=== PATIENT | female | born 1940 | race Caucasian/White ===

== ENCOUNTER 2022-12-29 10:14 | Outpatient (CLI) | payer MEDICARE, BC, SELFPAY | END 2022-12-29 10:15 | disposition home or self-care (01) | LOC: NFLDREF 12-30 07:27 | PROVIDERS: PCP Emergency Medicine; Referring Provider Emergency Medicine; Visit Provider Emergency Medicine | DX: Z00.00 Encounter for general adult medical examination without abnormal findings (principal); E03.9 Hypothyroidism, unspecified; E78.5 Hyperlipidemia, unspecified; E87.6 Hypokalemia; R79.89 Other specified abnormal findings of blood chemistry; R73.03 Prediabetes; Z79.899 Other long term (current) drug therapy; F32.A Depression, unspecified; M48.00 Spinal stenosis, site unspecified; R60.0 Localized edema | CPT/HCPCS: 80053; 80061; 84443 ==

== ENCOUNTER 2023-07-06 11:41 | Outpatient (CLI) | payer MEDICARE, BC, SELFPAY | END 2023-07-06 11:42 | disposition home or self-care (01) | PROVIDERS: PCP Emergency Medicine; Visit Provider Emergency Medicine | DX: N17.9 Acute kidney failure, unspecified (principal); D64.9 Anemia, unspecified; E03.9 Hypothyroidism, unspecified | CPT/HCPCS: 80048; 82728; 84443 ==

== ENCOUNTER 2024-04-04 13:32 | Outpatient (CLI) | payer MEDICARE, BC, SELFPAY | END 2024-04-04 13:33 | disposition home or self-care (01) | PROVIDERS: PCP Emergency Medicine; Visit Provider Emergency Medicine | DX: I10 Essential (primary) hypertension (principal); E78.5 Hyperlipidemia, unspecified; E03.9 Hypothyroidism, unspecified; R73.03 Prediabetes; D50.9 Iron deficiency anemia, unspecified | CPT/HCPCS: 80053; 80061; 82728; 84443 ==

== ENCOUNTER 2024-08-15 09:28 | Inpatient (IN) | payer MEDICARE, BC, SELFPAY ==
[2024-08-15] VITALS (21 sets, daily range): BP systolic 114–169; BP diastolic 59–95; PULSE 68–87; RESP 18–22; TEMP 36.2–36.8; O2SAT 88–100; BMI 56.5; BMI 43.7
--- NOTE | 2024-08-15 09:37 | ED_ITS ---
HPI - General Adult General Time Seen by Provider: 09:37 Date Seen: 08/15/24 Chief complaint: Weakness Stated complaint: UTI Time Seen by Provider: 08/15/24 09:35 Source: EMS Mode of arrival: EMS Limitations: no limitations History of Present Illness HPI narrative: Debora is a 84-year-old female with recurrent UTIs, sepsis in the past, obstructive sleep apnea, chronic iron deficiency anemia, chronic right buttock pressure ulcer, heart failure with preserved ejection fraction, limited mobility, obesity, hypertension, chronic pain, anxiety and depression, atrial fibrillation on chronic anticoagulation presents emerged department via EMS with UTI. Patient states she sees a provider at the [facility], they did obtain a urine about 1 week ago, she was notified that she had a urinary tract infection. Patient is currently not on any antibiotics. Patient also states she has had this chronic right buttock ulcer, she gets intermittent pain in the area from time to time, she feels it is progressively got worse. She denies any new fevers or chills, she has had lower extremity edema which has been stable, she gets pain in the hip both of her heels. She did feet slid out of her wheelchair about 1 week ago, she denied any head injury that time. Patient has not had a cough or chest pain however she has been progressively worsened shortness of breath over the last year. No recent falls. Patient lives with her , she states does not help out very much, she does not have any home health care. Related Data Home Medications ?Medication ?Instructions ?Recorded ?Confirmed acetaminophen 500 mg capsule 1,000 mg PO QID PRN 09/27/22 07/04/24 cholecalciferol (vitamin D3) 125 125 mcg PO QDAY 09/27/22 07/04/24 mcg (5,000 unit) tablet fluticasone furoate 200 1 inh inhalation DAILY 04/16/24 07/04/24 mcg/actuation blister powder for inhalation (Arnuity Ellipta) Previous Rx's ?Medication ?Instructions ?Recorded warfarin 6 mg tablet 6 mg PO 4XW #90 tabs 05/16/23 metoprolol succinate 100 mg 100 mg PO QDAY #90 tabs 04/16/24 tablet,extended release 24 hr simvastatin 40 mg tablet 40 mg PO QPM #90 tabs 04/16/24 levothyroxine 150 mcg tablet 150 mcg PO DAILY #90 tabs 04/24/24 budesonide 0.5 mg/2 mL suspension 0.5 mg (2 mL) inhalation BID #360 04/25/24 for nebulization (Pulmicort) mL nebulizer accessories #1 ea 05/07/24 nebulizers #1 ea 05/07/24 warfarin 5 mg tablet 5 mg PO QWEEK #30 tabs 07/01/24 albuterol sulfate 90 mcg/actuation 2 puff inhalation Q4-6H PRN 07/04/24 aerosol inhaler (Ventolin HFA) shortness of breath or wheezing #8.5 grams bupropion HCl 150 mg 24 hr tablet, 150 mg PO QAM #90 tabs 07/04/24 extended release furosemide 40 mg tablet 40 mg PO BID #180 tabs 07/04/24 gabapentin 600 mg tablet 1,200 mg (2 x 600 mg) PO TID #540 07/04/24 tabs warfarin 7.5 mg tablet 7.5 mg PO QDAY #90 tabs 07/17/24 Allergies Allergy/AdvReac Type Severity Reaction Status Date / Time penicillamine Allergy Unknown Verified 07/04/24 13:14 Review of Systems Status of ROS: Reports: 10 or more systems reviewed and unremarkable except as noted in History and below [facility] Medical History (Updated 08/15/24 @ 15:04 by Neil Fu MD) Decubital ulcer ?L89.90 - Pressure ulcer of unspecified site, unspecified stage (ICD-10) Restrictive lung disease ?J98.4 - Other disorders of lung (ICD-10) Cough variant asthma ?J45.991 - Cough variant asthma (ICD-10) Noncompliance with medications ?Z91.148 - Patient's other noncompliance with medication regimen for other reason (ICD-10) Chronic cough ?R05.3 - Chronic cough (ICD-10) Atrial fibrillation with RVR ?I48.91 - Unspecified atrial fibrillation (ICD-10) UTI (urinary tract infection) ?N39.0 - Urinary tract infection, site not specified (ICD-10) Macular degeneration ?H35.30 - Unspecified macular degeneration (ICD-10) Iron deficiency anemia ?D50.9 - Iron deficiency anemia, unspecified (ICD-10) MIN (obstructive sleep apnea) ?G47.33 - Obstructive sleep apnea (adult) (pediatric) (ICD-10) Anemia ?D64.9 - Anemia, unspecified (ICD-10) History of sepsis ?Z86.19 - Personal history of other infectious and parasitic diseases (ICD- 10) Acute kidney injury ?N17.9 - Acute kidney failure, unspecified (ICD-10) Acute hypoxic respiratory failure ?J96.01 - Acute respiratory failure with hypoxia (ICD-10) Sepsis ?A41.9 - Sepsis, unspecified organism (ICD-10) (HFpEF) heart failure with preserved ejection fraction ?I50.30 - Unspecified diastolic (congestive) heart failure (ICD-10) Limited mobility ?Z74.09 - Other reduced mobility (ICD-10) Bed sore, stage 1 ?L89.91 - Pressure ulcer of unspecified site, stage 1 (ICD-10) Cough ?R05.9 - Cough, unspecified (ICD-10) PAC (premature atrial contraction) ?I49.1 - Atrial premature depolarization (ICD-10) Pyelonephritis ?N12 - Tubulo-interstitial nephritis, not specified as acute or chronic (ICD- 10) Seasonal allergies ?J30.2 - Other seasonal allergic rhinitis (ICD-10) Irregular heart beat ?I49.9 - Cardiac arrhythmia, unspecified (ICD-10) History of deep venous thrombosis ?Z86.718 - Personal history of other venous thrombosis and embolism (ICD-10) History of bone density study (06/24/11) ?Z92.89 - Personal history of other medical treatment (ICD-10) Fracture of right femur ?S72.91XA - Unspecified fracture of right femur, initial encounter for closed fracture (ICD-10) Recurrent pulmonary embolism ?I26.99 - Other pulmonary embolism without acute cor pulmonale (ICD-10) Chronic anticoagulation ?Z79.01 - vermin exterminator (current) use of anticoagulants (ICD-10) Central stenosis of spinal canal ?M48.00 - Spinal stenosis, site unspecified (ICD-10) Leg edema ?R60.0 - Localized edema (ICD-10) Depression ?F32.A - Depression, unspecified (ICD-10) Surgical History (Updated 07/04/24 @ 13:59 by Lona Bernard MD) History 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 - Skin transplant status (ICD-10) History of total abdominal hysterectomy ?Z90.710 - Acquired absence of both cervix and uterus (ICD-10) History of left shoulder replacement ?Z96.612 - Presence of left artificial shoulder joint (ICD-10) History of fusion of lumbar spine ?Z98.1 - Arthrodesis status (ICD-10) History of colonoscopy (06/24/11) ?Z98.890 - Other specified postprocedural states (ICD-10) History of appendectomy (04/08/11) ?Z90.49 - Acquired absence of other specified parts of digestive tract (ICD- 10) Social History (Updated 07/04/24 @ 14:00 by Lona Bernard MD) Narrative: lives with one daughter Exam Narrative: Exam Narrative: General: NAD, laying comfortably. HEENT: Oropharynx clear and moist, extraocular muscles intact, pupils equal round reactive to light. Neck: Supple Lungs: Diminished breath sounds no wheezing or crackles Heart: Irregular irregular Abdomen: Morbid obese, soft, nontender to palpation Muscle skeletal: Chronic lower lymph edema, mild anterior lower erythema. Right buttock and sacral area chronic pressure ulcer, no induration or fluctuance, no surrounding erythema, no drainage Neuro: Alert awake and oriented x3, GCS 15 Const: Vital Signs, click to edit/add: Vital Signs - 24 hr 08/15/24 09:59 08/15/24 10:00 08/15/24 10:06 Temperature 97.2 F L Pulse Rate 79 81 Pulse Rate [Pulse Oximeter] 87 Respiratory Rate 22 Blood Pressure 157/95 H Blood Pressure [Ri ght Forearm] 157/95 H Pulse Oximetry 95 89 88 Oxygen Delivery Me thod Room Air Oxygen Flow Rate 08/15/24 10:15 08/15/24 10:30 08/15/24 11:06 Temperature Pulse Rate 87 80 71 Pulse Rate [Pulse Oximeter] Respiratory Rate Blood Pressure Blood Pressure [Ri ght Forearm] Pulse Oximetry 95 96 91 Oxygen Delivery Me thod Oxygen Flow Rate 08/15/24 11:15 08/15/24 11:30 08/15/24 11:48 Temperature Pulse Rate 72 70 74 Pulse Rate [Pulse Oximeter] Respiratory Rate Blood Pressure Blood Pressure [Ri ght Forearm] Pulse Oximetry 93 93 94 Oxygen Delivery Me thod Oxygen Flow Rate 08/15/24 12:34 08/15/24 12:45 08/15/24 13:00 Temperature Pulse Rate 75 70 68 Pulse Rate [Pulse Oximeter] Respiratory Rate Blood Pressure Blood Pressure [Ri ght Forearm] Pulse Oximetry 93 94 94 Oxygen Delivery Me thod Oxygen Flow Rate 08/15/24 13:15 08/15/24 14:15 08/15/24 14:27 Temperature Pulse Rate 76 Pulse Rate [Pulse Oximeter] Respiratory Rate 18 Blood Pressure 128/59 L Blood Pressure [Ri ght Forearm] 138/80 Pulse Oximetry 95 Oxygen Delivery Me thod Oxygen Flow Rate 08/15/24 14:39 08/15/24 15:05 Temperature Pulse Rate 75 Pulse Rate [Pulse Oximeter] Respiratory Rate 20 Blood Pressure Blood Pressure [Ri ght Forearm] Pulse Oximetry 92 93 Oxygen Delivery Me thod Nasal Cannula OxyMask Oxygen Flow Rate 2 3 Course Course ED Course: 9;45 PM: aidet performed. Vitals show 88% O2 sats on room air, will give her supplemental oxygen 2 L, vitals are otherwise stable, workup will include urinalysis and urine culture, CBC, INR, CMP, blood cultures, NT proBNP, EKG, XR chest PA and lateral. Plan to rule out worsening heart failure versus worsening urinary tract infection. Patient has other chronic multiple comorbidities that seems stable. Patient has chronic sacral wound which also looks stable. Will await for lab results to see further imaging will be obtained. Reevaluation(s) Time of Reevaluation #1: 12:20 Reevaluation #1: IMPRESSION: Moderate pulmonary edema. No pleural effusion. Cardiomegaly. Imaging showed milder and pulmonary edema, EKG showed a normal sinus rhythm, bpm 70, low-voltage QRS, no acute ST changes, INR 3.31, NT proBNP 1300, patient was given 20 mg IV Lasix. Urinalysis showed 2+ blood, urine nitrite positive, 2+ leukocyte esterase, urine rbc's 2-5, urine white blood cells 5-10, moderate bacteria, previous urine culture showed Klebsiella and Pseudomonas, sensitive to cefepime, patient received 2 g IV cefepime. 1000 mg oral tab Tylenol for pain. CBC showed no leukocytosis, for anemia, INR 3.31, normal lactate, blood cultures pending, comprehensive metabolic panel showed normal renal function and electrolytes. Time of Reevaluation #2: 15:14 Reevaluation #2: Spoke with hospitalist Dr. Kelsey VILLAGOMEZ, he sepsis care of the patient to a observation bed, time to treat for acute on chronic heart failure with pulmonary edema and urinary tract infection. Vital Signs Vital signs: Initial Vital Signs Pulse Rate 79 08/15/24 09:59 Blood Pressure 157/95 H 08/15/24 09:59 Blood Pressure Mean 115 H 08/15/24 09:59 Pulse Oximetry 95 08/15/24 09:59 Vital Signs Pulse Rate 79 08/15/24 09:59 Blood Pressure 157/95 H 08/15/24 09:59 Pulse Oximetry 95 08/15/24 09:59 Temperature 97.2 F L 08/15/24 10:06 Pulse Rate 75 08/15/24 14:39 Respiratory Rate 20 08/15/24 14:39 Blood Pressure 128/59 L 08/15/24 14:27 Pulse Oximetry 93 08/15/24 15:05 Oxygen Delivery Method OxyMask 08/15/24 15:05 Oxygen Flow Rate 3 08/15/24 15:05 Medications Administered Medications: Discontinued Medications Generic Name Dose Route Start Last Admin Trade Name Cristina PRN Reason Stop Dose Admin Acetaminophen 1,000 mg 08/15/24 14:02 08/15/24 14:05 Acetaminophen 500 Mg Tablet PO 08/15/24 14:03 1,000 mg ONCE ONE Administration Furosemide 20 mg 08/15/24 12:33 08/15/24 13:08 Furosemide 10 Mg/Ml Inj IVP 08/15/24 12:34 20 mg ONCE ONE Administration Cefepime HCl 2 gm/ Sodium 100 mls @ 200 mls/hr 08/15/24 14:11 08/15/24 14:27 Chloride IVPB 08/15/24 14:12 200 mls/hr ONCE ONE Administration Medical Decision Making Lab Data Labs: Lab Results 08/15/24 08/15/24 Range/Units 10:27 11:05 WBC 7.76 (4.50-11.00) K/uL RBC 4.75 (4.00-5.20) m/uL Hgb 12.9 (12.0-16.0) gm/dL Hct 42.8 (33.0-51.0) % MCV 90 (80-100) fL MCH 27 (26-34) pg MCHC 30 L (32-36) gm/dL RDW Coeff of Dorothy 16.2 H (11.5-15.5) % Plt Count 210 (140-440) K/uL Neut % (Auto) 70.2 (42.0-72.0) % Lymph % (Auto) 19.5 L (20-44) % [place] % (Auto) 7.1 (0.0-11.0) % Eos % (Auto) 2.7 (0.0-7.0) % Baso % (Auto) 0.4 (0.0-3.0) % Neut # (Auto) 5.45 (1.7-7.0) K/uL Lymph # (Auto) 1.50 (0.90-2.90) K/uL [place] # (Auto) 0.60 (0.00-0.90) K/UL Eos # (Auto) 0.21 (0.00-0.50) K/uL Baso # (Auto) 0.03 (0.00-0.30) K/uL Abs Immat Gran (auto) 0.01 (0.00-0.30) K/uL Imm/Tot Granulo (auto) 0.1 % INR 3.31 H (0.91-1.10) Sodium 143 (135-149) mmol/L Potassium 4.0 (3.6-5.1) mmol/L Chloride 104 (96-114) mmol/L Carbon Dioxide 33 H (20-32) mmol/L Anion Gap 6 L (7-15) mEq/L BUN 27 (7-30) mg/dL Creatinine 0.9 (0.5-1.5) mg/dL Estimated Creat Clear 39.90 Estimated GFR 63 ml/min Glucose 99 (60-115) mg/dL Calcium 9.1 (8.4-10.6) mg/dL Total Bilirubin 0.6 (0.1-1.5) mg/dL AST 21 (12-35) U/L ALT 12 (4-35) U/L Alkaline Phosphatase 108 (40-150) U/L NT-Pro-B Natriuret Pep 1300 pg/mL Total Protein 7.2 (6.0-8.3) g/dL Albumin 3.9 (3.3-5.0) g/dL Urine Color Yellow (Yellow) Urine Appearance Clear (Clear) Urine pH 7.0 (5.0-8.5) Ur Specific Gordon 1.010 (1.000-1.030) Urine Protein Negative (Negative) Urine Glucose (UA) Negative (Negative) Urine Ketones Negative (Negative) Urine Blood 2+ A (Negative) Urine Nitrite Positive A (Negative) Urine Bilirubin Negative (Negative) Urine Urobilinogen 0.2 (0.2-1.0) Ur Leukocyte Esterase 2+ A (Negative) Urine RBC 2-5 A (0-2) Urine WBC 5-10 A (0-5) Ur Squamous Epith Cells None (None-Few) Amorphous Sediment Few A (None) Urine Bacteria Moderate A (None) Discharge Plan Discharge Clinical Impression: Pulmonary edema, Urinary tract infection Patient Disposition: Admitted As Observation
--- NOTE | 2024-08-15 09:56 | CRLHL7_ITS ---
For Patients: As a result of the Century Cures Act, medical imaging exams and procedure reports are released immediately into your electronic medical record. You may view this report before your referring provider. If you have questions, please contact your health care provider. INDICATION: Shortness of breath, question worsening heart failure COMPARISON: 10/19/2020 TECHNIQUE: PA and lateral 2 view chest. FINDINGS: Elevated anterior right diaphragm. Lung volumes are good. No focal consolidation. Moderate pulmonary edema. No pleural effusion. No pneumothorax. No pneumomediastinum. Cardiomegaly. Atherosclerosis. Bones: Bilateral shoulder arthroplasties. Lower cervical ACDF. IMPRESSION: Moderate pulmonary edema. No pleural effusion. Cardiomegaly. Dictated by Karen Spicer MD @ 08/15/2024 11:51:01 AM (Electronically Signed)
[2024-08-15 10:52] LABS: Chloride* 104 mmol/L (96-114)
[2024-08-15 10:53] LABS: Albumin* 3.9 g/dL (3.3-5.0); Sodium* 143 mmol/L (135-149)
[2024-08-15 10:55] LABS: Blood Urea Nitrogen* 27 mg/dL (7-30); Creatinine* 0.9 mg/dL (0.5-1.5); Estimated Glomerular Filt Rate 63 ml/min
[2024-08-15 10:56] LABS: Alanine Aminotransferase* 12 U/L (4-35); Alkaline Phosphatase* 108 U/L (40-150); Anion Gap 6 mEq/L (7-15); Aspartate Amino Transferase* 21 U/L (12-35); Bilirubin Total* 0.6 mg/dL (0.1-1.5); Calcium* 9.1 mg/dL (8.4-10.6); Carbon Dioxide* 33 mmol/L (20-32); Glucose* 99 mg/dL (60-115); INR 3.31 (0.91-1.10); Prothrombin Time 34.9 Seconds; Total Protein* 7.2 g/dL (6.0-8.3)
[2024-08-15 11:00] LABS: Basophils Absolute Auto 0.03 K/uL (0.00-0.30); Basophils Percent Auto 0.4 % (0.0-3.0); Eosinophils Absolute Auto 0.21 K/uL (0.00-0.50); Eosinophils Percent Auto 2.7 % (0.0-7.0); Hematocrit 42.8 % (33.0-51.0); Hemoglobin* 12.9 gm/dL (12.0-16.0); Immature Granulocytes Abs Auto 0.01 K/uL (0.00-0.30); Immature Granulocytes Pct Auto 0.1 %; Lymphocytes Percent Auto 19.5 % (20-44); Mean Corpuscular HGB Conc 30 gm/dL (32-36); Mean Corpuscular Hemoglobin 27 pg (26-34); Mean Corpuscular Volume 90 fL (80-100); Monocytes Percent Auto 7.1 % (0.0-11.0); Neutrophils Absolute Auto 5.45 K/uL (1.7-7.0); Neutrophils Percent Auto 70.2 % (42.0-72.0); Platelet Count* 210 K/uL (140-440); RDW Coefficient of Variation % 16.2 % (11.5-15.5); Red Blood Count 4.75 m/uL (4.00-5.20); Slide Review Reflex No; White Blood Count* 7.76 K/uL (4.50-11.00)
[2024-08-15 11:13] LABS: NT Pro B Type NatriureticPept* 1300 pg/mL
[2024-08-15 11:21] LABS: Appearance Urine Clear (Clear); Bilirubin Urine Negative (Negative); Blood Urine 2+ (Negative); Color Urine Yellow (Yellow); Glucose Urine Negative (Negative); Ketones Urine Negative (Negative); Leukocyte Esterase Urine 2+ (Negative); Nitrite Urine Positive (Negative); Protein Urine Negative (Negative); Urobilinogen Urine 0.2 (0.2-1.0)
[2024-08-15 11:35] LABS: Amorphous Sediment Urine Few; Bacteria Urine Moderate
[2024-08-15] MEDS: FUROSEMIDE 10 MG/ML inj 20 MG IVP (13:08)
[2024-08-15] MEDS: ACETAMINOPHEN 500 MG TABLET 1000 MG PO ×2 (14:05→18:46)
[2024-08-15] MEDS: CEFEPIME HCL 2 GM in 0.9 % SODIUM CHLORIDE Mini-bag 100 ML IVPB (14:27)
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
--- OUTSIDE RECORDS SUMMARY | 2024-08-15 17:29 | XMS_ITS | Encounter Summary ---
Author Organization [facility] Address [address] [place] [address] Care Team Providers Care Bruise Trimmer Name Role Phone Provider, Not On File Primary Care Provider Unav ailable Encounter Details Date Type Department Care Team (Late st Contact Info) Description 11/23/2020 Lab Requisition [facility] [address] [place] [address] Katie Iqbal MD [address] [place], [place] [phone] Urinary tract infection, site not specified Social History Tobacco Use Types Packs/Day Years Used Date Smoking Tobacco: Never Smokeless Tobacco: Never Comments:Quit smoking: Comments Unknown Sex and Gender Information Value Date Recorded Sex Assigned at Not on file Legal Sex Female 4:25 AM CDT Gender Identity Not on file Sexual Orientation Not on file documented as of this encounter Plan of Treatment Not on file documented as of this encounter Procedures Procedure Name Priority Date/Time Associated Diagnosis Comments URINE CULTURE Routine 11/23/2020 3:30 PM CDT Urinary tract infection, site not specified UA WITH MICROSCOPIC Routine 11/23/2020 3 :30 PM CDT Urinary tract infection, site not specified documented in this encounter Results * (ABNORMAL) Urine Culture (11/23/2020 3:30 PM CDT) Urine Culture Growth(A) 11/25/2020 8:19 AM [facility] Urine Culture >100,000 CFU/mL Klebsiella oxytoca/Raoultella ornithinolytica 11/25/2020 8:19 AM [facility] Urine ROCA CATHETER LONGTERM USE / Unknown Non-blood Collection / Unknown 11/23/2020 3:30 PM CDT 11/23/2020 7:55 PM T Narrative Organism Antibiotic Method Susceptibility Klebsiella oxytoca/Raoultella ornithinolytica Ampicillin/Sulbactam 16 mcg/mL: Intermediate Klebsiella oxytoca/Raoultella ornithinolytica Piperacillin/Tazobactam 4 mcg/mL: Susceptible Klebsiella oxytoca/Raoultella ornithinolytica Cefazolin >16 mcg/mL: Resistant Klebsiella oxytoca/Raoultella ornithinolytica Ceftriaxone <=1 mcg/mL: Susceptible Klebsiella oxytoca/Raoultella ornithinolytica Cefepime <=1 mcg/mL: Susceptible Klebsiella oxytoca/Raoultella ornithinolytica Ciprofloxacin <=0.25 mcg/mL: Susceptible Klebsiella oxytoca/Raoultella ornithinolytica Levofloxacin <=0.5 mcg/mL: Susceptible Klebsiella oxytoca/Raoultella ornithinolytica Ertapenem <=0.25 mcg/mL: Susceptible Klebsiella oxytoca/Raoultella ornithinolytica Meropenem <=0.5 mcg/mL: Susceptible Klebsiella oxytoca/Raoultella ornithinolytica Tobramycin <=2 mcg/mL: Susceptible Klebsiella oxytoca/Raoultella ornithinolytica Trimethoprim/Sulfamethoxaz ole <=0.5 mcg/mL: Susceptible Klebsiella oxytoca/Raoultella ornithinolytica Nitrofurantoin 64 mcg/mL: Intermediate Klebsiella oxytoca/Raoultella ornithinolytica Cefoxitin <=4 mcg/mL: Susceptible Klebsiella oxytoca/Raoultella ornithinolytica Gentamicin <=2 mcg/mL: Susceptible Klebsiella oxytoca/Raoultella ornithinolytica Cefotetan Klebsiella oxytoca/Raoultella ornithinolytica Cefuroxime <=4 mcg/mL: Susceptible us Katie Iqbal MD LAB_1 Final Result [address] [address], [facility] [phone] * (ABNORMAL) UA with Microscopic (11/23/2020 3:30 PM CDT) Urine Color Yellow Straw-Yello w 11/23/2020 8:36 PM CDT [facility] Urine Clarity Clear Clear 11/23/2020 8:36 PM CDT [facility] Specific Grant, Urine 1.010 1.005 - 1.030 11/23/2020 8:36 PM CDT [facility] PH Urine 6.0 5.0 - 8.0 11/23/2020 8:36 PM CDT [facility] Protein Negative Negative 11/23/2020 8:36 PM CDT [facility] Glucose Negative Negative 11/23/2020 8:36 PM CDT [facility] Ketones Negative Negative 11/23/2020 8:36 PM CDT [facility] Urobilinogen <2.0 <2.0 11/23/2020 8:36 PM CDT [facility] Bilirubin Negative Negative 11/23/2020 8:36 PM CDT [facility] Blood, Urine (mg/dL) Small(A) Neg/Trace 11/23/2020 8:36 PM CDT [facility] Nitrite Urine Negative Negative 11/23/2020 8:36 PM CDT [facility] Leukocyte Esterase Large(A) Negative 11/23/2020 8:36 PM CDT [facility] Red Blood Cells 12(H) 0 - 3 /HPF 8:36 PM CDT [facility] White Blood Cells 47(H) 0 - 5 /HPF 11/23/2020 8:36 PM CDT [facility] Bacteria Moderate(A) None Seen /HPF 11/23/2020 8:36 PM CDT [facility] Hyaline Casts 6(H) <=2 /LPF 11/23/2020 8:36 PM CDT [facility] Source Roca catheter (Indwelling ) 11/23/2020 8:36 PM CDT [facility] Urine ROCA CATHETER [employer] USE / Unknown Non-blood Collection / Unknown 11/23/2020 3:30 PM CDT 11/23/2020 7:55 PM CDT Narrative [facility] - 11/23/2020 8:36 PM CDT Ascorbic acid detected in this urine sample, which may interfere with Glucose, Blood and Nitrite measurements. us Katie Iqbal MD LAB_1 Final Result [facility] [address] [place] [address], [facility] documented in this encounter Visit Diagnoses Diagnosis Urinary tract infection, site not specified documented in this encounter Additional Health Concerns Health Status Noted Date No Change 01/30/2008 documented as of this encounter Care Teams Bruise Trimmer Relationship Specialty Start Date End Date Provider, Not On File [address] [place] [address] PCP - General 03/03/17 documented as of this encounter
--- OUTSIDE RECORDS SUMMARY | 2024-08-15 17:29 | XMS_ITS | Data Portability ---
Author Organization [place] [facility] Address [address] [place] [address] Assessment No assessment recorded. Plan of Treatment Reminders Order Date Submit Date Provider Last Modified By Organization Details Last Modified Time Details Appointments None record ed. Lab None record ed. Referral None record ed. Procedures None record ed. Surgeries None record ed. Imaging None record ed. Medication Orders None record ed. Patient TargetsNo targets recorded. Patient Instructions Encounter Date Encounter Id Patient Instructions Last Modified By Organization Details Last Modified Time 01/14/2020 [id number] hx of mixed incontinence--uri ne and stool she is a weak historian with 3+ yrs of urethral catheter. has what sounds like catheter expelling monthly at times along with some UTIs on occasion. seems like colorectal did not want her to have colostomy in past she is unable to move and help for exam and further evaluation today --to be seen with ayden at [facility] for exam. we discussed that if there is urethral erosion, then that is possible cause for problem. care home urethral catheter is not a good plan, but obese and SPT would be hard. could consider IR to place but again difficult. could consider anticholinergic/m yrbetriq to help with explusion as well no clear symptomactic uti sx, but wanted urine checked as more cloudy and smells. we discussed she will always have bacteria in urine with catheter. will call with result. needs exam with ayden [email or web address] Not available 01/15/2020 09:31:56 Reason for Referral None Reported. Results Created Date Observation Date Name Description Value Unit Range Abnormal Flag Note LastModifiedBy Organization Detail LastModifiedTime Result Notes None recorded. Problems Name Problem SNOMED Code Status Onset Date Resolution Date Notes Provider Name and Address Organization Details Recorded Time Depressiv e disorder 73400238 Active 2019 Dorys Maral null, [facility] 0 10:40:29 Hypokalem ia 03838646 Active 2019 Dorys Maral null, [facility] 0 10:40:39 Hyperlipi demia 31357885 Active 2019 Dorys Maral null, [facility] 0 10:40:47 Hypothyro idism 01458318 Active 2019 Dorys Maral null, [facility] 0 10:41:00 Vitamin D deficienc y 15529326 Active 2019 Dorys Maral null, [facility] 0 10:41:13 Fatigue 11780258 Active 2019 Dorys Maral null, [facility] 0 10:41:21 Benign prostatic hyperplas ia 251764472 Completed 201901/14/2020 Dorys Maral null, [facility] 0 14:00:59 Acute nontrauma tic kidney injury 800301108096 103 Active 2019 Dorys Maral null, [facility] 0 10:43:24 Radiculit is 14274326 Active 2019 Dorys Maral null, [facility] 0 10:43:34 Sepsis 37619285 Active 2019 Dorys Maral null, [facility] 0 10:43:43 Anxiety 77433409 Active 2019 Dorys Maral null, [facility] 0 10:43:51 Chronic pain 94537264 Active 2019 Dorys Maral null, [facility] 0 10:44:01 Deep venous thrombosi s 087642719 Active 2019 Dorys Maral null, [facility] 0 10:44:16 Hypertens gary disorder 01116027 Active 2019 Dorys Maral null, [facility] 0 10:44:24 Pulmonary embolism 17215411 Active 2019 Dorys willis [facility] 0 10:44:34 Fever 681355808 Active 2019 Dorys willis [facility] 0 10:44:45 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 Procedures Surgical History Date Name Laterality Status Provider Name and Address Organization Details Recorded Time total shoulder replacement completed Dorysdexter Alicia [facility] 01/14/2020 10:47:01 Appendectomy completed Dorys Alicia [facility] 01/14/2020 10:47:18 abdominal hysterectomy completed Dorys Alicia [facility] 01/14/2020 10:47:45 total [facility] 01/14/2020 10:48:10 Imaging Results None recorded. Procedure Notes None recorded. Medical Equipment None Reported. Allergies No known drug allergies Medications Name Sig Start Date Stop Date Status Note LastModified by Organization Details LastModified Time simvastatin 40 mg tablet Take 1 tablet every day by oral route. active Not Available Not Available No t Available warfarin 5 mg tablet Take 1 tablet every day by oral route. active Not Available Not Available No t Available sertraline active Not Available Not Av ailable Not Available acetaminophen active Not Available Not Available Not Available levothyroxine active Not Available Not Available Not Available senna active Not Available Not Availa ble Not Available lorazepam active Not Available Not Tiana ilable Not Available furosemide active Not Available Not Av ailable Not Available Vitamin D active Not Available Not Tiana ilable Not Available dibucaine active Not Available Not Tiana ilable Not Available gabapentin active Not Available Not Av ailable Not Available Wellbutrin SR active Not Available Not Available Not Available Miralax active Not Available Not Avail able Not Available metoprolol succ 25 mg-hydrochlorot hiazide 12.5 mg tablet,ext.rel 24 hr Take 1 tablet every day by oral route. active Not Available Not Available No t Available potassium 408 mg-stanley 100 mg-magnes 120 mg-bhargavi 2 mg oral powder pack Take by oral route. active Not Available Not Available No t Available Vitals Date Recorded Body height Provider Name an d Address Organization Details Last Updated DateTime 01/14/2020 170.18 cm Dorys Alicia [facility] 01/14/2020 11:47:05 Social History Question Answer Notes LastModified by Organizat ion Details LastModified Time Tobacco Smoking Status Never Smoker Dorys Alicia null, [facility] 01/14/2020 11:47:34 How Much Tobacco Do You Smoke? No [email or web address] Information not available 01/14/2020 Sex: Unknown Functional Status None recorded. Mental Status None recorded. Family History Nothing Reported. Medical History No medical history recorded. Gynecological HistoryNo gynecological history recorded. Obstetrics History GPAL:G 0 P 0 0 0 0 Past Encounters Encounter ID Performer Location Encounter Start Date Encounter Closed Date Diagnosis/Indication Diagnosis SNOMED-CT Code Diagnosis ICD10 Code Diagnosis Note [id number] Maryann Pereyra MD [facility] [address] [place] [address] 01/14/2020 11:41:01 01/24/2020 12:19:38 Urinary incontinence 320677045 R32 Incontinence of feces 72 928444 R15.9 Recurrent urinary tract infection 287851831 N39.0 Health Concerns Section Related Observation LastModified by Organization Detai ls LastModified Time None Recorded Concern Status LastModified by Organization Details LastModified Time None Recorded Advance Directives Directive None Recorded Payers Insurance Date Sequence Insurance Name Policy Number Policy Dexter Covered Member ID Dexter Member ID Guarantor Name 02/10/2020 2 [facility] [id number] Debora Vivar [id number] Debora Vivar 01/15/2020 1 MEDICARE [place]: [employer] Debora Vivar [id number] Debora Vivar Notes Date Note Type Note Provider Name and Address Organization Details Recorded Time 01/14/2020 text/html 79 yo female wit h hx of incontinence Hx of back surgery more than 10 yrs ago since then has had loss of urine and bowels. has had issues over 10 years and has not brought up this issue before. she has had a alford catheter for over 3 years, her PMD had arranged this she thinks. the catheter comes out sometimes, every 3-4 weeks. gets the catheter changed q 1 mo. has had some UTIs, but her history is poor. she states she was hospitalized for 1 of them. she has an odor to her urine today and white cells in the tubing. no fevers/chills. lives in [place] in a home, with has almost no help in wheelchair. has issues with fecal incontinence, almost daily. she did have evaluation for this, but history again is poor, but sounds like they did not want her to have ostomy. Maryann Pereyra MD [address], [place], [address], [facility] 01/15/2020 09:32:55 OBGyn Episode No OBEpisode recorded.
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
--- OUTSIDE RECORDS SUMMARY | 2024-08-15 17:29 | XMS_ITS | Clinical Summary ---
Author Organization [facility] Address [address] [place] [address] Care Team Providers Care Spaghetti Press Helper Name Role Phone Provider, Not On File Primary Care Provider Unav ailable Source Comments You are receiving this document as you are listed as the primary care provider,follow-up provider, or the patient has been referred to you for consultation.This is in compliance with the Medicare and[facility] EHR Incentive Program,which states Providers who transition their patient to another setting of careor provider of care or refers their patient to another provider of care shouldprovide summary care record for each transition of care or referral. InVitae Allergies Active Allergy Reactions Criticality Noted Date Comments Other 01/26/2001 PN: LW Other1: -NKA Penicillins 01/24/2001 PN: LW Reaction: ANAPHYLAXIS Review Contrast Media 01/26/2001 PN: LW CM1: CONTRAST- NKA Reaction : Review Food Intolerance 01/26/2001 PN: LW FI1: nka LW FI2: nka Medications simvastatin (AKA ZOCOR) 20 MG tablet Take 1 tablet by mouth every evening. LW Addl Instr:Indicated for: High Cholesterol 90 3 1 Active naproxen (AKA NAPROSYN) 375 MG tablet Take 1 tablet by mouth 2 times daily as needed. LW Addl Instr:Indicated for: Arthritis 3 1 Active Multiple Vitamins-Mineral s (MULTIVITAMIN OR) Take 1 tablet by mouth daily (every 24 hours). 100 13 1 Active Ascorbic Acid (VITAMIN C OR) Take by mouth. LW Comment:PT UNSURE OF DOSE 0 Active cyanocobalamin (B-12) 100 MCG tablet 1 mcg daily (every 24 hours). LW Comment:UNSURE OF DOSE 0 Active cholecalciferol (AKA VITAMIN D3) 1000 UNITS tablet Take 1 tablet by mouth daily (every 24 hours). LW Comment:PT UNSURE OF DOSE 90 3 0 Active gabapentin (AKA NEURONTIN) 400 MG capsule Take 1 capsule by mouth 3 times daily. 90 capsule 11 1 Active Calcium Citrate (CALCITRATE OR) Take by mouth. 1 Active Sennosides (SENNA LAX OR) Take by mouth. 1 Active teriparatide (AKA FORTEO) 600 MCG/2.4ML injection Inject subcutaneously. 1 Active Psyllium 100 % powder Take 1 packet by mouth 2 times daily. Dissolve in full glass of water or juice. 1 Active bisacodyl (AKA DULCOLAX) 5 MG enteric coated tablet Take 5 mg by mouth daily as needed. 1 Active warfarin (AKA COUMADIN) 5 MG tablet Take 1-2 tablets by mouth daily (every 24 hours). Current dose is 5mg per day. Adjust per INR value. 180 tablet 11 1 Active LORazepam (AKA ATIVAN) 1 MG tablet Take 1 tablet by mouth 2 times daily as needed. 35 tablet 0 1 Active oxyCODONE (AKA OXY-IR) 15 MG immediate release tablet Take 1 tablet by mouth every 4 hours as needed. 14 tablet 0 1 Active citalopram (AKA CELEXA) 20 MG tablet TAKE ONE TABLET BY MOUTH DAILY 30 tablet PRN 2 Active docusate sodium (AKA COLACE) 100 MG capsule TAKE ONE CAPSULE BY MOUTH TWICE DAILY 60 capsule PRN 2 Active potassium chloride (AKA K-DUR,KLOR-CON M) 20 MEQ tablet TAKE TWO TABLETS BY MOUTH EVERY DAY 60 tablet PRN 2 Active lidocaine (AKA XYLOCAINE) 5 % ointment APPLY RECTALLY EVERY 2 HOURS NEEDED FOR PAIN 70.88 g PRN 2 Active levothyroxine (AKA SYNTHROID) 100 MCG tablet TAKE ONE TABLET BY MOUTH DAILY 30 tablet PRN 2 Active furosemide (AKA LASIX) 40 MG tablet TAKE 2 TABLETS BY MOUTH TWICE DAILY . 360 tablet 0 2 Active traMADol (AKA ULTRAM) 50 MG tablet Take 50 mg by mouth every 6 hours as needed. 2 Active pregabalin (AKA LYRICA) 75 MG capsule Take 75 mg by mouth 2 times daily. 2 Active metoPROLOL tartrate (AKA LOPRESSOR) 50 MG tablet Take 1 tablet by mouth 2 times daily. 180 tablet 0 2 Active lisinopril (AKA ZESTRIL) 10 MG tabletIndication s:Unspecified essential hypertension (HRC) Take 1 tablet by mouth daily (every 24 hours). 30 tablet 0 3 Active bevacizumab (AKA AVASTIN) 100 MG/4ML injection 1.25 mg by Intravitreal route every 30 days. as needed. 4 mL 12 5 Active betamethasone valerate (VALISONE) 0.1 % cream 0 7 Active gabapentin (NEURONTIN) 300 MG capsule TK 3 CS PO TID 3 7 Active levothyroxine (SYNTHROID) 150 MCG tablet TK 1 T PO D 2 7 Active LORazepam (ATIVAN) 0.5 MG tablet TK 1 T PO BID PRN 0 7 Active Active Problems Problem Noted Date Diagnosed Date Exudative age-related macula r degeneration of right eye with active choroidal neovascularization 08/01/2016 Age-related macular degeneration, wet, right eye 08/07/2015 Status post hip replacement 11/02/2010 Overview (11/23/2016): Bilateral ; Hip replacement arthroplasty S/P bilateral breast reduction 11/02/2010 History of appendectomy 11/02/2010 S/P bunionectomy 11/02/2010 Overview (11/04/2015): Left S/P tonsillectomy and adenoidectomy 11/02/2010 Spinal stenosis, lumbar juan on, without neurogenic claudication 04/27/2007 Overview (11/23/2016): Spinal Stenosis Lumbar Lumbago 04/27/2007 Overview (11/23/2016): Pain Low Back Mechanical Osteoarthritis 04/27/2007 Overview (11/23/2016): DJD delivery delivered 06/18/2004 Overview (11/23/2016): LW Onset: 1975 ; Delivery Vitiligo 06/18/2004 Pulmonary embolism and infarction 09/07/2002 Overview (11/23/2016): Pulmonary Embolus Hypothyroidism 09/07/2002 Overview (11/23/2016): Hypothyroidism Acquired Obesity 09/07/2002 Essential hypertension 09/07/2002 Overview (11/23/2016): Hypertension Resolved Problems Problem Noted Date Diagnosed Date Resolved Date Iatrogenic pulmonary embolism and infarction 1 02/22/2011 enrollment management director current use of ant icoagulant therapy 09/07/2010 02/22/2011 Overview (07/10/2017): Update from Spring 2017 IMO load. Hyperlipidemia 09/07/2002 11/15/2007 Immunizations Immunization Administration Dates Next Due DT Ped 03/06/1990 Flu Vac Preserv Free (3+yrs) 01/19/2009,01/29/20 08 H1n1 Miv Sanofi 3+ Yr (Injected) 06/26/2009 Influenza, Unspecified Formulation 06/02/2006, PPSV23 (Pneumovax) 08/11/2006 Refusal To Vaccinate 12/25/2003 Td 07/13/2010,07/27/1999 Family History Medical History Relation Name Comments Cataract Mother Macular Degeneration Mother Amblyopia/Strabismus Negative Family History Diabetes Negative Family History Glaucoma Negative Family History Retinal Detachment Negative Family History Relation Name Status Comments Mother Social History [...] Sign Reading Time Taken Comments Blood Pressure 125/77 03/22/2011 3:42 PM BIZTALK ADMINISTRATOR Pulse 78 03/22/2011 3:42 PM BIZTALK ADMINISTRATOR Temperature 36.7 C (98.1 F) 09/11/2008 5:35 PM CDT ORAL C: 36.7 C Respiratory Rate 14 03/22/2011 3:42 PM BIZTALK ADMINISTRATOR Oxygen Saturation 95% 09/23/2009 2:2 3 PM CDT Inhaled Oxygen Concentration - - Weight 113.4 kg (250 lb) 12/19/2011 10: 09 AM CDT Height 171.5 cm (5' 7.5) 12/15/2011 7: 12 PM CDT Body Mass Index 38.58 12/15/2011 7:12 PM CDT Plan of Treatment Health Maintenance Due Date Last Done Comments Tuberculosis Screening 1940 Adult Preventive Visit 1959 Zoster/Shingles Vaccine (1 of 2) 1991 Colonoscopy 10/15/2004 10/14/2004 Dexa 2006 RSV Vaccine (1 - 1-dose 75+ series) 02/21/2016 COVID-19 Vaccine ( season) 2023 06/13/2020, 05/23/2020 Influenza Vaccine (Season Ended) 2024 01/27/2020, 01/01/2019, 01/11/2018, Additional history exists DTaP/Tdap/Td Vaccine (6 - Tdap) 02/12/2027 02/12/2017, 02/12/2017, 07/13/2010, Additional history exists Pneumococcal Vaccine 50+ Yrs Completed , 11/18/2010, 08/11/2006, Additional history exists HepA Vaccine Aged Out No longer eligi ble based on patient's age to complete this topic HepB Vaccine Aged Out No longer eligi ble based on patient's age to complete this topic Hib Vaccine Aged Out No longer eligi ble based on patient's age to complete this topic IPV (Polio) Vaccine Aged Out No longe r eligible based on patient's age to complete this topic MCV4 Vaccine Aged Out No longer eligi ble based on patient's age to complete this topic Meningococcal B Vaccine Aged Out No l onger eligible based on patient's age to complete this topic Procedures Procedure Name Priority Date/Time Associated Diagnosis Comments ENDOSCOPY, COLON, SCREENING/DIAGNOSTIC Routine 10/14/2004 2:06 PM CDT from Last 3 Months or Most Recently Relevant to Health Maintenance Results * Endoscopy, colon, diagnostic (10/14/2004 2:06 PM CDT) Anatomical Region Laterality Modality Other us User Conversion ET GI PROCEDURE ORDERABLES Final Result from Last 3 Months or Most Recently Relevant to Health Maintenance Care Teams Spaghetti Press Helper Relationship Specialty Start Date End Date Provider, Not On File [id number] [place] [address] PCP - General 03/03/17
--- OUTSIDE RECORDS SUMMARY | 2024-08-15 17:30 | XMS_ITS | Encounter Summary ---
Author Organization [facility] Address [address] [place] [id number] Care Team Providers Care Creasing And Cutting Press Feeder Name Role Phone Provider, Not On File Primary Care Provider Unav ailable Encounter Details Date Type Department Care Team (Late st Contact Info) Description 03/17/2023 Lab Requisition [facility] [address] [facility] [place], [place] [id number] Marco Antonio Douglas MD [address] [place], [place] [id number] Acute embolism and thrombosis of unspecified deep veins of unspecified lower extremity (HRC) Social History Tobacco Use Types Packs/Day Years [...] Procedure Name Priority Date/Time Associated Diagnosis Comments INR/PROTIME Routine 03/17/2023 5:53 AM DIRECTOR OF MEDICAL STAFF SERVICES Acute embolism and thrombosis of unspecified deep veins of unspecified lower extremity (HRC) documented in this encounter Results * (ABNORMAL) INR/Protime (03/17/2023 5:53 AM DIRECTOR OF MEDICAL STAFF SERVICES) Protime 28.7(H) 11.8 - 14.6 Seconds 03/17/2023 1:13 PM DIRECTOR OF MEDICAL STAFF SERVICES [facility] INR 2.7(H) 0.9 - 1.1 03/17/2023 1:13 PM DIRECTOR OF MEDICAL STAFF SERVICES [facility] Blood Venipuncture / Unknown 03/17/2023 5:53 AM DIRECTOR OF MEDICAL STAFF SERVICES 03/17/2023 12:29 PM DIRECTOR OF MEDICAL STAFF SERVICES Narrative [facility] - 03/17/2023 1:13 PM DIRECTOR OF MEDICAL STAFF SERVICES Therapeutic range determined by protocol established by anticoagulation provider. us Marco Antonio Douglas MD LAB_1 Final Result [facility] [address] [place] [address], [facility] documented in this encounter Visit Diagnoses Diagnosis Acute embolism and thrombosis of unspecified deep veins of unspecified lower extremity (HRC) documented in this encounter Additional Health Concerns Health Status Noted Date No Change 01/30/2008 documented as of this encounter Care Teams Creasing [employer] Cutting [employer] Feeder Relationship Specialty Start Date End Date Provider, Not On File [address] [place] [address] PCP - General 03/03/17 documented as of this encounter
--- OUTSIDE RECORDS SUMMARY | 2024-08-15 17:31 | XMS_ITS ---
Author Organization [facility] Care Team Providers Care Nursing Assistant Name Role Phone ^\\, ^\\ Unavailable Unavailable Ankush Cole Unavailable Unavailable GEE Acevedo, Rachel Unavailable Unavailable GEE Bennett, Jerica Unavailable Unavailable MD Filippo, Isreal Unavailable Unavailable Allergies and adverse reactions Code CodeSystem Substance Reaction Severity StartDate Concern Status 596956495 SNOMED CT Penicillins Unknown 09/03/2020 activ e Care Team Name Role Address Phone Organization Dates Isreal Barkley MD PCP [address] [facility] [address], [place], [address], [place] (Office[place] : [facility] 10/27/2020 - 01/05/2021 ^\\ ^\\ [place] [facility] 10/27/2020 - 01/05/2021 Ankush Cole [address] [facility], [place], [address], [place] (Office): : [facility] 10/27/2020 - 01/05/2021 Rachel Acevedo NP [address] [place] [address] [place], [place], [address], [place] (Office): : [facility] 10/27/2020 - 01/05/2021 Jerica Bennett NP [address] [facility] [address], [place], [address], [place] (Office): : [facility] 10/27/2020 - 01/05/2021 Immunizations Immunization Status Vaccine Details Vaccine Code CodeSystem Date Notes Influenza completed Influenza, high-dose, split virus, quadrivalent, injectable, preservative free lotNumber: [id number] expiry: 09/30/2021 Mfg: Seqirus Given 0.5 ml Right Deltoid intramuscularly 197 CVX created date: 12/28/2020 consent date: 12/28/2020 administer ed date: 12/28/2020 Educated by Paloma Vaz RN on 12/28/2020 Influenza completed Influenza, high-dose, split virus, quadrivalent, injectable, preservative free 197 CVX created date: 09/04/2020 administer ed date: 01/27/2020 Pneumovax Dose 1 completed pneumococcal polysaccharide vaccine, 23 valent 33 CVX created date: 09/04/2020 administer ed date: 2006 TB 2 Step Mantoux Skin Test completed tuberculin skin test; unspecified formulation lotNumber: [id number] expiry: 04/08/2022 Mfg: Sanofi [employer] limited Given 0.1 ml Right Forearm intradermally Step 2 of Multi-step with next step required 98 CVX created date: 09/18/2020 consent date: 09/18/2020 administer ed date: 09/18/2020 TB 2 Step Mantoux Skin Test completed tuberculin skin test; unspecified formulation lotNumber: [id number] expiry: 04/08/2022 Mfg: Sanofi Paste[employer] limited Given 0.1 ml Right Forearm intradermally Step 1 of Multi-step with next step required 98 CVX created date: 09/04/2020 consent date: 09/04/2020 administer ed date: 09/04/2020 Pneumovax Dose 2 completed pneumococcal polysaccharide vaccine, 23 valent 33 CVX created date: 09/04/2020 administer ed date: 11/18/2010 Prevnar 13 completed pneumococcal conjugate vaccine, 13 valent 133 CVX created date: 09/04/2020 administer ed date: 11/22/2017 SARS-COV-2 (COVID-19) completed SARS-COV-2 (COVID-19) vaccine, mRNA, spike protein, LNP, preservative free, 30 mcg/0.3mL dose Mfg: Pfizer Step 2 of Multi-step with next step required 208 CVX created date: 09/04/2020 administer ed date: 06/13/2020 SARS-COV-2 (COVID-19) completed SARS-COV-2 (COVID-19) vaccine, mRNA, spike protein, LNP, preservative free, 30 mcg/0.3mL dose Mfg: Pfizer Step 1 of Multi-step with next step required 208 CVX created date: 09/04/2020 administer ed date: 05/23/2020 Mental Status Section Date Assessment Total Score Description 01/05/2021 BIMS 15 cognitively int act CAM 0 No delirium ind icated PHQ-9 01 minimal depress ion 10/31/2020 BIMS 15 cognitively int act CAM 0 No delirium ind icated PHQ-9 07 mild depression Problems Problem # Description Date of onset Resolved Date Code CodeSystem Concern Status 1 LOW BACK PAIN, UNSPECIFIED 01/02/[address] active 2 ENCOUNTER FOR FITTING AND ADJUSTMENT OF OTHER SPECIFIED DEVICES 12/22/[address] active 3 OTHER REDUCED MOBILITY 10/29/[address] active 4 BODY MASS INDEX [BMI] 45.0-49.9, ADULT 10/28/[address] active 5 DISPLACED COMMINUTED FRACTURE OF SHAFT OF RIGHT FEMUR, SUBSEQUENT ENCOUNTER FOR CLOSED FRACTURE WITH ROUTINE HEALING 10/28/[address] active 6 MORBID (SEVERE) OBESITY DUE TO EXCESS CALORIES 10/28/[address] active 7 OTHER CHRONIC PAIN 10/28/[address] active 8 PARAPLEGIA, UNSPECIFIED 10/28/[address] active 9 PERIPHERAL VASCULAR DISEASE, UNSPECIFIED 10/28/[address] active 10 PERIPROSTHETIC FRACTURE AROUND INTERNAL PROSTHETIC RIGHT HIP JOINT, SUBSEQUENT ENCOUNTER 10/28/[id number] active 11 PRESENCE OF RIGHT ARTIFICIAL HIP JOINT 10/28/[address] active 12 RADICULOPATHY, LUMBOSACRAL REGION 10/28/[address] active 13 ANXIETY DISORDER, UNSPECIFIED 09/04/19 21 09/03/[address] completed 14 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 ENABLING MACHINES AND DEVICES 09/04/[address] active 15 DISEASE OF SPINAL CORD, UNSPECIFIED 09/04/19 21 09/03/[address] completed 16 ENCOUNTER FOR FITTING AND ADJUSTMENT OF URINARY DEVICE 09/04/[address] active 17 ENCOUNTER FOR OTHER ORTHOPEDIC AFTERCARE 09/04/19 21 10/27/[address] completed 18 ESSENTIAL (PRIMARY) HYPERTENSION 09/04/[address] active 19 FLACCID NEUROPATHIC BLADDER, NOT ELSEWHERE CLASSIFIED 09/04/[address] active 20 GENERALIZED ANXIETY DISORDER 09/04/[address] active 21 HYPERLIPIDEMIA, UNSPECIFIED 09/04/[address] active 22 HYPOKALEMIA 09/04/[address] active 23 HYPOTHYROIDISM, UNSPECIFIED 09/04/[address] active 24 MANAGER FOOD SAFETY (CURRENT) USE OF ANTICOAGULANTS 09/04/[address] active 25 LOW BACK PAIN 09/04/19 21 01/08/[address] completed 26 MAJOR DEPRESSIVE DISORDER, SINGLE EPISODE, UNSPECIFIED 09/04/[address] active 27 MYOPATHY, UNSPECIFIED 09/04/[address] active 28 OBESITY, UNSPECIFIED 09/04/19 21 10/27/[address] completed 29 OBSTRUCTIVE SLEEP APNEA (ADULT) (PEDIATRIC) 09/04/[address] active 30 OTHER INTERVERTEBRAL DISC DEGENERATION, LUMBOSACRAL REGION 09/04/[address] active 31 OTHER PULMONARY EMBOLISM WITHOUT ACUTE COR PULMONALE 09/04/[address] active 32 OTHER SPONDYLOSIS WITH MYELOPATHY, CERVICAL REGION 09/04/19 21 09/03/[address] completed 33 PERSONAL HISTORY OF OTHER VENOUS THROMBOSIS AND EMBOLISM 09/04/[address] active 34 SPINAL STENOSIS, CERVICAL REGION 09/04/[address] active 35 SPINAL STENOSIS, LUMBAR REGION WITHOUT NEUROGENIC CLAUDICATION 09/04/[address] active 36 SPONDYLOSIS WITHOUT MYELOPATHY OR RADICULOPATHY, LUMBAR REGION 09/04/[address] active 37 SPONDYLOSIS WITHOUT MYELOPATHY OR RADICULOPATHY, LUMBAR REGION 09/04/19 21 09/03/[address] completed 38 UNILATERAL PRIMARY OSTEOARTHRITIS, UNSPECIFIED KNEE 09/04/19 21 09/03/[address] completed 39 UNSPECIFIED MACULAR DEGENERATION 09/04/[address] active 40 UNSPECIFIED OSTEOARTHRITIS, UNSPECIFIED SITE 09/04/[address] active Reason for Referral No Reasons for Referral Entered Social History Social History Observation Description Start Date End Date Code Code System Current Smoking Status Tobacco smoking consumption unknown 489689502 SNOMED CT Sex Assigned At Female 1940 90099-4 [facility] Gender Identity Vital Signs Code Code System Vitals Name Values and Units Timing Information 8462-4 [facility] Blood Pressure-Diastolic Value=67 Un its=mmHg 01/05/2021 8480-6 [facility] Blood Pressure-Systolic Ltpif=166 Un its=mmHg 01/05/2021 62089-0 [facility] Pain Level Value=3.0 01/05/2021 8310-5 [facility] Body Temperature Value=97.2 Units= F 01/05/2021 15340-0 [facility] O2 % BldC Oximetry Value=92.0 Units= % 01/05/2021 8867-4 [facility] Heart rate Value=70.0 Units=/min 08/2020 19913-5 [facility] Weight Gytll=447.7 Units=Lbs 04/2020 9279-1 [facility] Respiratory Rate Value=20.0 Units=/m in 01/01/2021 8302-2 [facility] Height Value=67.0 Units=Inches 09/03/2020
--- OUTSIDE RECORDS SUMMARY | 2024-08-15 17:31 | XMS_ITS | Clinical Summary ---
Author Organization [facility] ([facility]) Address [address] [place] [address], [address] [place] [address] Phone Care Team Providers Care Honey Grader And Blender Name Role Phone AGA ALINE Unavailable Unavailable RAISSA VENDING MACHINE SERVICER, FLOYD Unavailable Unavailable BAALBAN VENDING MACHINE SERVICER, LOYD Unavailable Unavailab sherita PAEZ CARDIAC TECHNOLOGIST, TOSHIA Unavailable Unavailable BETTIN OT, DANIELLA Unavailable Unavailable JOSH PT, FRANKIE Unavailable Unavailable TANGELA RN, FRANK Unavailable Unavailable BISHOP TRUJILLO, DEREJE Unavailable Unavailable DAVID TRUJILLO, CRYS Unavailable Unavailable ANDRIY COSME, JEFFERSON Unavailable Unavailable HAILY TRUJILLO, ALEJANDRO Unavailable Unavailable Payers Payer Name Policy Type Policy Number Effective Date Expira tion Date MEDICARE PDGM [id number] Problems Condition Name Condition Details Condition Category Status Onset Date Resolution Date Last Treatment Date Treating Clinician Comments NEUROMUSCULA R DYSFUNCTION OF BLADDER, UNSPECIFIED Active 06-18 00:00: 00 ENCOUNTER FOR FITTING AND ADJUSTMENT OF URINARY DEVICE Active 06-18 00:00: 00 PAROXYSMAL ATRIAL FIBRILLATION Active 06-18 00:00: 00 HYPERTENSIVE HEART DISEASE WITH HEART FAILURE Active 06-18 00:00: 00 UNSPECIFIED DIASTOLIC (CONGESTIVE) HEART FAILURE Active 06-18 00:00: 00 MAJOR DEPRESSIVE DISORDER, RECURRENT, MILD Active 06-18 00:00: 00 SPASTIC HEMIPLEGIA AFFECTING UNSPECIFIED SIDE Active 06-18 00:00: 00 SPINAL STENOSIS, 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 Active 06-18 00:00: 00 HYPOTHYROIDI SM, UNSPECIFIED Active 06-18 00:00: 00 ANXIETY DISORDER, UNSPECIFIED Active 06-18 00:00: 00 OTHER CHRONIC PAIN Active 06-18 00:00: 00 OBSTRUCTIVE SLEEP APNEA (ADULT) (PEDIATRIC) Active 06-18 00:00: 00 OTHER INSOMNIA Active 06-18 00:00: 00 IRON DEFICIENCY ANEMIA SECONDARY TO BLOOD LOSS (CHRONIC) Active 06-18 00:00: 00 PRESENCE OF RIGHT ARTIFICIAL SHOULDER JOINT Active 06-18 00:00: 00 PRESENCE OF LEFT ARTIFICIAL SHOULDER JOINT Active 06-18 00:00: 00 PERSONAL HISTORY OF NICOTINE DEPENDENCE Active 06-18 00:00: 00 PRESENCE OF ARTIFICIAL HIP JOINT, BILATERAL Active 06-18 00:00: 00 Problems related to health literacy Active 06-18 00:00: 00 ENCOUNTER FOR THERAPEUTIC DRUG LEVEL MONITORING Active 06-18 00:00: 00 SNF (CURRENT) USE OF ANTICOAGULAN TS Active 06-18 00:00: 00 SNF (CURRENT) USE OF INHALED STEROIDS Active 06-18 00:00: 00 Allergies, Adverse Reactions, Alerts Allergy Name Allergy Type Status Severity Reaction(s) Onset Date Inactive Date Treating Clinician Comments PENICILLIN Propensity to adverse reactions Active 08-26 09:06: 02 CONTRAST DYE Propensity to adverse reactions Active 08-26 09:05: 50 Medications Ordered Medication Name Filled Medication Name Start Date Stop Date Current Medication? Ordering Clinician Indication Dosage Frequency Signature (SIG) Comments Components furosemide 40 mg tablet 2020-04 0-15 00:00: 00 03-15 23:59 :00 No [id number] EDEMA 1 tablet 2 TIMES DAILY 1 tablet 2 TIMES DAILY (route: oral) Med Classific ation: Cardiovas cular Therapy Agents levothyroxi ne 175 mcg tablet 8-14 00:00: 00 03-15 23:59 :00 No [id number] HYPOTHYROID ISM 1 tablet DAILY 1 tablet DAILY (route: oral) Med Classific ation: Endocrine lorazepam 0.5 mg tablet 5-20 00:00: 00 01-29 23:59 :00 No [id number] ANIXETY 1 tablet BEDTIME 1 tablet BEDTIME (route: oral) Med Classific ation: Central Nervous System Agents metoprolol tartrate 25 mg tablet 08-18 00:00: 00 09-14 23:59 :00 No [id number] HYPERTENSIO N 1 tablet 2 TIMES DAILY 1 tablet 2 TIMES DAILY (route: oral) Med Classific ation: Cardiovas cular Therapy Agents acetaminoph en 500 mg tablet 2020-04 00:00: 00 01-29 23:59 :00 No [id number] PAIN 2 tablet 3 TIMES DAILY 2 tablet 3 TIMES DAILY (route: oral) Med Classific ation: Analgesic , Anti-infl ammatory or Antipyret ic bupropion HCl XL 150 mg 24 hr tablet, extended release 08-13 00:00: 00 03-15 23:59 :00 No [id number] DEPRESSION 1 tablet DAILY 1 tablet DAILY (route: oral) Med Classific ation: Central Nervous System Agents cholecalcif christoph (vitamin D3) 125 mcg (5,000 unit) tablet 04-15 00:00: 00 03-15 23:59 :00 No [id number] SUPPLEMENT 1 tablet DAILY 1 tablet DAILY (route: oral) Med Classific ation: Electroly te Balance-N utritiona l Products gabapentin 600 mg tablet 06-24 00:00: 00 03-15 23:59 :00 No [id number] PAIN 2 tablet 3 TIMES DAILY 2 tablet 3 TIMES DAILY (route: oral) Med Classific ation: Central Nervous System Agents naphazoline 0.025 %-phenirami ne 0.3 % eye drops 2014-04 00:00: 00 01-29 23:59 :00 No [id number] REDNESS 1 drops DAILY 1 drops DAILY (route: ophthalmic (eye)) Med Classific ation: Ophthalmi c Agents polyethylen e glycol 3350 17 gram oral powder packet 2017-04 00:00: 00 07-14 23:59 :00 No [id number] CONSTIPATIO N 17 g DAILY 17 g DAILY (route: oral) Med Classific ation: Gastroint estinal Therapy Agents potassium chloride 20 mEq oral packet 04-14 00:00: 00 04-21 23:59 :00 No [id number] LOW POTASSIUM 20 mEq 2 TIMES DAILY 20 mEq 2 TIMES DAILY (route: oral) Med Classific ation: Electroly te Balance-N utritiona l Products Senna Plus 8.6 mg-50 mg capsule 2-08 00:00: 00 07-14 23:59 :00 No [id number] CONSTIPATIO N 1 capsule 2 TIMES DAILY 1 capsule 2 TIMES DAILY (route: oral) Med Classific ation: Gastroint estinal Therapy Agents sertraline 100 mg tablet 7-14 00:00: 00 01-29 23:59 :00 No [id number] DEPRESSION 1 tablet DAILY 1 tablet DAILY (route: oral) Med Classific ation: Central Nervous System Agents simvastatin 40 mg tablet - 00:00: 00 03-15 23:59 :00 No [id number] HYPERLIPADE KATHRINE 1 tablet DAILY 1 tablet DAILY (route: oral) Med Classific ation: Cardiovas cular Therapy Agents warfarin 6 mg tablet 2020-04 2-08 00:00: 00 04-05 23:59 :00 No [id number] PREVENT CLOTS 1 tablet DAILY 1 tablet DAILY (route: oral) Med Classific ation: Hematolog ical Agents warfarin 1 mg tablet 2020-04 2-27 00:00: 00 04-26 23:59 :00 No [id number] ANTICOAGULA TION Per instruc tions DAILY Per instructio ns DAILY (route: oral) Med Classific ation: Hematolog ical Agents warfarin 6 mg tablet 2020-04 2-28 00:00: 00 04-05 23:59 :00 No [id number] ANTICOAGULA TION Per instruc tions DAILY Per instructio ns DAILY (route: oral) Med Classific ation: Hematolog ical Agents warfarin 6 mg tablet 1-03 00:00: 00 04-23 23:59 :00 No [id number] ANTICOAG Per instruc tions DAILY Per instructio ns DAILY (route: oral) Med Classific ation: Hematolog ical Agents warfarin 6 mg tablet 1-20 00:00: 00 04-26 23:59 :00 No [id number] ANTICOAGULT ION Per instruc tions DAILY Per instructio ns DAILY (route: oral) Med Classific ation: Hematolog ical Agents warfarin 1 mg tablet 1-24 00:00: 00 04-29 23:59 :00 No [id number] ANTIEMBOLIC THERAPY 1-2 tablet DAILY 1-2 tablet DAILY (route: oral) Med Classific ation: Hematolog ical Agents warfarin 6 mg tablet 1-24 00:00: 00 04-29 23:59 :00 No [id number] ANTIEMBOLIC TREATMENT 1 tablet BEDTIME 1 tablet BEDTIME (route: oral) Med Classific ation: Hematolog ical Agents warfarin 1 mg tablet 04-29 00:00: 00 05-06 23:59 :00 No [id number] ANTICOAG 1-2 tablet DAILY 1-2 tablet DAILY (route: oral) Med Classific ation: Hematolog ical Agents warfarin 6 mg tablet 04-29 00:00: 00 05-06 23:59 :00 No [id number] ANTICOAG 1 tablet DAILY 1 tablet DAILY (route: oral) Med Classific ation: Hematolog ical Agents cephalexin 500 mg capsule 2- 00:00: 00 05-10 23:59 :00 No [id number] UTI 1 capsule 3 TIMES DAILY 1 capsule 3 TIMES DAILY (route: oral) Med Classific ation: Anti-Infe ctive Agents warfarin 1 mg tablet 2-03 00:00: 00 05-13 23:59 :00 No [id number] ANTICOAGULA NT 1 tablet DIRECTED 1 tablet DIRECTED (route: oral) Med Classific ation: Hematolog ical Agents warfarin 2 mg tablet 2-03 00:00: 00 05-13 23:59 :00 No [id number] ANTICOAGULA NT 1 tablet DIRECTED 1 tablet DIRECTED (route: oral) Med Classific ation: Hematolog ical Agents warfarin 6 mg tablet 2-03 00:00: 00 05-13 23:59 :00 No [id number] ANTICOAGULA NT 1 tablet DAILY 1 tablet DAILY (route: oral) Med Classific ation: Hematolog ical Agents cephalexin 500 mg capsule 0 2-04 00:00: 00 05-13 23:59 :00 No [id number] URINARY TRACT INFECTION 1 capsule 3 TIMES DAILY 1 capsule 3 TIMES DAILY (route: oral) Med Classific ation: Anti-Infe ctive Agents warfarin 1 mg tablet 2-10 00:00: 00 05-18 23:59 :00 No [id number] DVT PROPHYLAXIS 1-2 tablet EVERY PM 1-2 tablet EVERY PM (route: oral) Med Classific ation: Hematolog ical Agents warfarin 6 mg tablet 2-10 00:00: 00 05-18 23:59 :00 No [id number] DVT PROPHYLAXIS 1 tablet EVERY PM 1 tablet EVERY PM (route: oral) Med Classific ation: Hematolog ical Agents warfarin 1 mg tablet 17 00:00: 00 05-25 23:59 :00 No [id number] ANTICOAG Per instruc tions DAILY Per instructio ns DAILY (route: oral) Med Classific ation: Hematolog ical Agents warfarin 6 mg tablet -17 00:00: 00 05-25 23:59 :00 No [id number] ANTICOAG Per instruc tions DAILY Per instructio ns DAILY (route: oral) Med Classific ation: Hematolog ical Agents warfarin 1 mg tablet - 00:00: 00 07-14 23:59 :00 No [id number] ANTICOAG Per instruc tions DAILY Per instructio ns DAILY (route: oral) Med Classific ation: Hematolog ical Agents warfarin 6 mg tablet 2- 00:00: 00 07-14 23:59 :00 No [id number] ANTICOAG Per instruc tions DAILY Per instructio ns DAILY (route: oral) Med Classific ation: Hematolog ical Agents cephalexin 500 mg capsule 4-07 00:00: 00 07-17 23:59 :00 No [id number] ANTIBIOTIC 1 capsule 3 TIMES DAILY 1 capsule 3 TIMES DAILY (route: oral) Med Classific ation: Anti-Infe ctive Agents Klor-Con M20 mEq tablet,exte nded release 1-19 00:00: 00 01-29 23:59 :00 No [id number] POTASSIUM REPLACEMENT 1 tablet 2 TIMES DAILY 1 tablet 2 TIMES DAILY (route: oral) Med Classific ation: Electroly te Balance-N utritiona l Products polyethylen e glycol 3350 17 gram oral powder packet 18 00:00: 00 01-29 23:59 :00 No [id number] CONSTIPATIO N 17 g DAILY 17 g DAILY (route: oral) Med Classific ation: Gastroint estinal Therapy Agents Senna Plus 8.6 mg-50 mg capsule 07-19 00:00: 00 01-29 23:59 :00 No [id number] CONSTIPATIO N 1 capsule DAILY 1 capsule DAILY (route: oral) Med Classific ation: Gastroint estinal Therapy Agents warfarin 6 mg tablet 07-19 00:00: 00 07-28 23:59 :00 No [id number] ANTICOAG Per instruc tions DAILY Per instructio ns DAILY (route: oral) Med Classific ation: Hematolog ical Agents warfarin 6 mg tablet 07-28 00:00: 00 08-11 23:59 :00 No [id number] ANTICOAGULA TION 8-9 mg EVERY PM 8-9 mg EVERY PM (route: oral) Med Classific ation: Hematolog ical Agents warfarin 6 mg tablet 08-11 00:00: 00 08-17 23:59 :00 No [id number] A FIB 7-8 mg DAILY 7-8 mg DAILY (route: oral) Med Classific ation: Hematolog ical Agents warfarin 6 mg tablet 08-17 00:00: 00 08-20 23:59 :00 No [id number] THROMBOSIS 7-8 mg DAILY 7-8 mg DAILY (route: oral) Med Classific ation: Hematolog ical Agents warfarin 6 mg tablet 08-20 00:00: 00 08-24 23:59 :00 No [id number] AFIB 7-8 mg DAILY 7-8 mg DAILY (route: oral) Med Classific ation: Hematolog ical Agents warfarin 6 mg tablet 5-24 00:00: 00 08-31 23:59 :00 No [id number] CLOTS 7-8 mg DAILY 7-8 mg DAILY (route: oral) Alternate Route: BY MOUTH. Med Classific ation: Hematolog ical Agents warfarin 6 mg tablet 31 00:00: 00 09-07 23:59 :00 No [id number] CLOTTING DISORDER 7-8 mg DAILY 7-8 mg DAILY (route: oral) Alternate Route: BY MOUTH. Med Classific ation: Hematolog ical Agents warfarin 6 mg tablet 09-07 00:00: 00 09-14 23:59 :00 No [id number] CLOTTING DISORDER 7-8 mg DAILY 7-8 mg DAILY (route: oral) Alternate Route: BY MOUTH. Med Classific ation: Hematolog ical Agents metoprolol tartrate 25 mg tablet 6-16 00:00: 00 09-27 23:59 :00 No [id number] BP 1 tablet BEDTIME 1 tablet BEDTIME (route: oral) Med Classific ation: Cardiovas cular Therapy Agents warfarin 6 mg tablet 617 00:00: 00 09-21 23:59 :00 No [id number] AFIB 1 tablet DAILY 1 tablet DAILY (route: oral) Med Classific ation: Hematolog ical Agents metoprolol tartrate 25 mg tablet 617 00:00: 00 11-01 23:59 :00 No [id number] HYPERTENSIO N 1 tablet BEDTIME 1 tablet BEDTIME (route: oral) Med Classific ation: Cardiovas cular Therapy Agents warfarin 6 mg tablet 09-21 00:00: 00 09-27 23:59 :00 No [id number] ANTICOAGULA TION Per instruc tions DAILY Per instructio ns DAILY (route: oral) Med Classific ation: Hematolog ical Agents warfarin 6 mg tablet 09-27 00:00: 00 10-05 23:59 :00 No [id number] BLOOD THINNER 6-8 mg DAILY 6-8 mg DAILY (route: oral) Med Classific ation: Hematolog ical Agents warfarin 6 mg tablet 05 00:00: 00 10-08 23:59 :00 No [id number] ANTICOAGULA TION Per instruc tions DAILY Per instructio ns DAILY (route: oral) Med Classific ation: Hematolog ical Agents warfarin 6 mg tablet 10-08 00:00: 00 10-15 23:59 :00 No [id number] CLOTTING DISORDER Per instruc tions DAILY Per instructio ns DAILY (route: oral) Alternate Route: BY MOUTH. Med Classific ation: Hematolog ical Agents warfarin 6 mg tablet 10-15 00:00: 00 11-05 23:59 :00 No [id number] AFIB Per instruc tions DAILY Per instructio ns DAILY (route: oral) Alternate Route: BY MOUTH. Med Classific ation: Hematolog ical Agents warfarin 6 mg tablet 11-05 00:00: 00 11-19 23:59 :00 No [id number] AFIB Per instruc tions DAILY Per instructio ns DAILY (route: oral) Alternate Route: BY MOUTH. Med Classific ation: Hematolog ical Agents warfarin 6 mg tablet 11-19 00:00: 00 11-26 23:59 :00 No [id number] afib Per instruc tions DAILY Per instructio ns DAILY (route: oral) Alternate Route: BY MOUTH. Med Classific ation: Hematolog ical Agents warfarin 6 mg tablet 11-26 00:00: 00 12-03 23:59 :00 No [id number] A FIB Per instruc tions DAILY Per instructio ns DAILY (route: oral) Alternate Route: BY MOUTH. Med Classific ation: Hematolog ical Agents warfarin 6 mg tablet 12-03 00:00: 00 12-09 23:59 :00 No [id number] AFIB Per instruc tions DAILY Per instructio ns DAILY (route: oral) Alternate Route: BY MOUTH. Med Classific ation: Hematolog ical Agents warfarin 6 mg tablet 12-09 00:00: 00 12-30 23:59 :00 No [id number] ANTICOAGULA TION Per instruc tions BEDTIME Per instructio ns BEDTIME (route: oral) Alternate Route: BY MOUTH. Med Classific ation: Hematolog ical Agents warfarin 6 mg tablet 12-30 00:00: 00 01-27 23:59 :00 No [id number] ANTICOAGULA TION Per instruc tions BEDTIME Per instructio ns BEDTIME (route: oral) Alternate Route: BY MOUTH. Med Classific ation: Hematolog ical Agents Colette Allergy 180 mg tablet 2021-04 0-15 00:00: 00 01-17 23:59 :00 No [id number] ALLERGIES 1 tablet DAILY 1 tablet DAILY (route: oral) Med Classific ation: Respirato ry Therapy Agents warfarin 6 mg tablet 2021-04 00:00: 00 02-03 23:59 :00 No [id number] AFIB Per instruc tions DAILY Per instructio ns DAILY (route: oral) Alternate Route: BY MOUTH. Med Classific ation: Hematolog ical Agents warfarin 6 mg tablet 2021-04 00:00: 00 02-17 23:59 :00 No [id number] AFIB Per instruc tions DAILY Per instructio ns DAILY (route: oral) Alternate Route: BY MOUTH. Med Classific ation: Hematolog ical Agents warfarin 6 mg tablet 2021-04 00:00: 00 02-25 23:59 :00 No [id number] AFIB Per instruc tions DAILY Per instructio ns DAILY (route: oral) Alternate Route: BY MOUTH. Med Classific ation: Hematolog ical Agents warfarin 6 mg tablet 2021-04 00:00: 00 03-04 23:59 :00 No [id number] AFIB Per instruc tions DAILY Per instructio ns DAILY (route: oral) Alternate Route: BY MOUTH. Med Classific ation: Hematolog ical Agents Bactrim DS 800 mg-160 mg tablet 2021-0424 00:00: 00 03-03 23:59 :00 No [id number] UTI 1 tablet 2 TIMES DAILY 1 tablet 2 TIMES DAILY (route: oral) Med Classific ation: Anti-Infe ctive Agents warfarin 6 mg tablet 2021-04 2-09 00:00: 00 03-18 23:59 :00 No [id number] BLOOD THINNER Per instruc tions DAILY Per instructio ns DAILY (route: oral) Alternate Route: BY MOUTH. Med Classific ation: Hematolog ical Agents warfarin 6 mg tablet 2021-04 2 00:00: 00 03-18 23:59 :00 No [id number] afib Per instruc tions DAILY Per instructio ns DAILY (route: oral) Alternate Route: BY MOUTH. Med Classific ation: Hematolog ical Agents warfarin 3 mg tablet 2021-04 00:00: 00 03-24 23:59 :00 No [id number] blood thinner 1 tablet DAILY 1 tablet DAILY (route: oral) Med Classific ation: Hematolog ical Agents warfarin 4 mg tablet 2021-04 00:00: 00 03-24 23:59 :00 No [id number] blood thinner 1 tablet DAILY 1 tablet DAILY (route: oral) Med Classific ation: Hematolog ical Agents warfarin 3 mg tablet 2021-04 00:00: 00 03-31 23:59 :00 No [id number] AFIB Per instruc tions DAILY Per instructio ns DAILY (route: oral) Med Classific ation: Hematolog ical Agents warfarin 4 mg tablet 2021-04 00:00: 00 03-31 23:59 :00 No [id number] AFIB Per instruc tions DAILY Per instructio ns DAILY (route: oral) Med Classific ation: Hematolog ical Agents warfarin 3 mg tablet 2021-04 00:00: 00 04-07 23:59 :00 No [id number] AFIB Per instruc tions DAILY Per instructio ns DAILY (route: oral) Med Classific ation: Hematolog ical Agents warfarin 4 mg tablet 2021-04 00:00: 00 04-07 23:59 :00 No [id number] AFIB Per instruc tions DAILY Per instructio ns DAILY (route: oral) Med Classific ation: Hematolog ical Agents warfarin 3 mg tablet 1-05 00:00: 00 04-22 23:59 :00 No [id number] AFIB Per instruc tions DAILY Per instructio ns DAILY (route: oral) Med Classific ation: Hematolog ical Agents warfarin 4 mg tablet 1-05 00:00: 00 04-22 23:59 :00 No [id number] AFIB Per instruc tions DAILY Per instructio ns DAILY (route: oral) Med Classific ation: Hematolog ical Agents Bactrim DS 800 mg-160 mg tablet 1-16 00:00: 00 04-24 23:59 :00 No [id number] UTI 1 tablet 2 TIMES DAILY 1 tablet 2 TIMES DAILY (route: oral) Med Classific ation: Anti-Infe ctive Agents warfarin 3 mg tablet 1-20 00:00: 00 05-12 23:59 :00 No [id number] AFIB Per instruc tions DAILY Per instructio ns DAILY (route: oral) Med Classific ation: Hematolog ical Agents warfarin 4 mg tablet 1-20 00:00: 00 05-12 23:59 :00 No [id number] AFIB Per instruc tions DAILY Per instructio ns DAILY (route: oral) Med Classific ation: Hematolog ical Agents warfarin 3 mg tablet 0 2-12 00:00: 00 06-21 23:59 :00 No [id number] AFIB Per instruc tions DAILY Per instructio ns DAILY (route: oral) Med Classific ation: Hematolog ical Agents warfarin 4 mg tablet 0 2-12 00:00: 00 06-21 23:59 :00 No [id number] AFIB Per instruc tions DAILY Per instructio ns DAILY (route: oral) Med Classific ation: Hematolog ical Agents warfarin 4 mg tablet 3-21 00:00: 00 07-08 23:59 :00 No [id number] AFIB Per instruc tions DAILY Per instructio ns DAILY (route: oral) Med Classific ation: Hematolog ical Agents warfarin 4 mg tablet 0 4-07 00:00: 00 07-13 23:59 :00 No [id number] AFIB Per instruc tions DAILY Per instructio ns DAILY (route: oral) Med Classific ation: Hematolog ical Agents warfarin 4 mg tablet 0 4-12 00:00: 00 07-15 23:59 :00 No [id number] AFIB 2 tablet DAILY 2 tablet DAILY (route: oral) Med Classific ation: Hematolog ical Agents warfarin 4 mg tablet 0 14 00:00: 00 07-19 23:59 :00 No [id number] AFIB 2 tablet DAILY 2 tablet DAILY (route: oral) Med Classific ation: Hematolog ical Agents warfarin 4 mg tablet 0 18 00:00: 00 08-02 23:59 :00 No [id number] AFIB 2 tablet DAILY 2 tablet DAILY (route: oral) Med Classific ation: Hematolog ical Agents warfarin 4 mg tablet 0 -02 00:00: 00 08-09 23:59 :00 No [id number] ANTICOAGULA NT Per instruc tions DAILY Per instructio ns DAILY (route: oral) Med Classific ation: Hematolog ical Agents warfarin 4 mg tablet 0 -09 00:00: 00 08-15 23:59 :00 No [id number] ANTCOAGULAT ION 2 tablet DIRECTED 2 tablet DIRECTED (route: oral) Med Classific ation: Hematolog ical Agents warfarin 5 mg tablet 0 -09 00:00: 00 08-15 23:59 :00 No [id number] ANTICOAGULA TION 2 tablet DIRECTED 2 tablet DIRECTED (route: oral) Med Classific ation: Hematolog ical Agents warfarin 5 mg tablet 0 -16 00:00: 00 08-23 23:59 :00 No [id number] AFIB 2 tablet DAILY 2 tablet DAILY (route: oral) Med Classific ation: Hematolog ical Agents warfarin 5 mg tablet 0 23 00:00: 00 09-01 23:59 :00 No [id number] AFIB 2 tablet DAILY 2 tablet DAILY (route: oral) Med Classific ation: Hematolog ical Agents warfarin 5 mg tablet 09-01 00:00: 00 09-07 23:59 :00 No [id number] AFIB Per instruc tions DAILY Per instructio ns DAILY (route: oral) Med Classific ation: Hematolog ical Agents warfarin 4 mg tablet 09-08 00:00: 00 09-21 23:59 :00 No [id number] AFIB Per instruc tions DIRECTED Per instructio ns DIRECTED (route: oral) Med Classific ation: Hematolog ical Agents warfarin 5 mg tablet 09-08 00:00: 00 09-21 23:59 :00 No [id number] AFIB Per instruc tions DIRECTED Per instructio ns DIRECTED (route: oral) Med Classific ation: Hematolog ical Agents warfarin 4 mg tablet 09-21 00:00: 00 10-05 23:59 :00 No [id number] AFIB Per instruc tions DAILY Per instructio ns DAILY (route: oral) Med Classific ation: Hematolog ical Agents warfarin 5 mg tablet 09-21 00:00: 00 10-05 23:59 :00 No [id number] AFIB Per instruc tions DAILY Per instructio ns DAILY (route: oral) Med Classific ation: Hematolog ical Agents warfarin 4 mg tablet 10-05 00:00: 00 10-20 23:59 :00 No [id number] A. FIB. Per instruc tions DAILY Per instructio ns DAILY (route: oral) Med Classific ation: Hematolog ical Agents warfarin 5 mg tablet 10-05 00:00: 00 10-20 23:59 :00 No [id number] A. FIB. Per instruc tions DAILY Per instructio ns DAILY (route: oral) Med Classific ation: Hematolog ical Agents warfarin 4 mg tablet 10-20 00:00: 00 10-27 23:59 :00 No [id number] AFIB Per instruc tions DAILY Per instructio ns DAILY (route: oral) Med Classific ation: Hematolog ical Agents warfarin 5 mg tablet 7-20 00:00: 00 10-27 23:59 :00 No [id number] AFIB Per instruc tions DAILY Per instructio ns DAILY (route: oral) Med Classific ation: Hematolog ical Agents warfarin 4 mg tablet 10-27 00:00: 00 11-02 23:59 :00 No [id number] AFIB Per instruc tions DAILY Per instructio ns DAILY (route: oral) Med Classific ation: Hematolog ical Agents warfarin 5 mg tablet 10-27 00:00: 00 11-02 23:59 :00 No [id number] AFIB Per instruc tions DAILY Per instructio ns DAILY (route: oral) Med Classific ation: Hematolog ical Agents warfarin 4 mg tablet 11-02 00:00: 00 11-17 23:59 :00 No [id number] AFIB Per instruc tions DAILY Per instructio ns DAILY (route: oral) Med Classific ation: Hematolog ical Agents warfarin 5 mg tablet 8 00:00: 00 11-17 23:59 :00 No [id number] AFIB Per instruc tions DAILY Per instructio ns DAILY (route: oral) Med Classific ation: Hematolog ical Agents warfarin 5 mg tablet 11-17 00:00: 00 12-08 23:59 :00 No [id number] AFIB 2 tablet DIRECTED 2 tablet DIRECTED (route: oral) Med Classific ation: Hematolog ical Agents warfarin 4 mg tablet 8-17 00:00: 00 12-01 23:59 :00 No [id number] AFIB 2 tablet DIRECTED 2 tablet DIRECTED (route: oral) Med Classific ation: Hematolog ical Agents warfarin 5 mg tablet 9- 00:00: 00 12-08 23:59 :00 No [id number] AFIB Per instruc tions DIRECTED Per instructio ns DIRECTED (route: oral) Med Classific ation: Hematolog ical Agents warfarin 4 mg tablet 12-02 00:00: 00 12-08 23:59 :00 No [id number] AFIB Per instruc tions DIRECTED Per instructio ns DIRECTED (route: oral) Med Classific ation: Hematolog ical Agents warfarin 4 mg tablet 12-08 00:00: 00 12-22 23:59 :00 No [id number] AFIB Per instruc tions DAILY Per instructio ns DAILY (route: oral) Med Classific ation: Hematolog ical Agents warfarin 5 mg tablet 12-08 00:00: 00 12-22 23:59 :00 No [id number] AFIB Per instruc tions DAILY Per instructio ns DAILY (route: oral) Med Classific ation: Hematolog ical Agents warfarin 4 mg tablet 12-22 00:00: 00 12-29 23:59 :00 No [id number] AFIB Per instruc tions DAILY Per instructio ns DAILY (route: oral) Med Classific ation: Hematolog ical Agents warfarin 5 mg tablet 12-22 00:00: 00 12-29 23:59 :00 No [id number] AFIB Per instruc tions DAILY Per instructio ns DAILY (route: oral) Med Classific ation: Hematolog ical Agents warfarin 4 mg tablet 12-29 00:00: 00 01-12 23:59 :00 No [id number] AFIB Per instruc tions DIRECTED Per instructio ns DIRECTED (route: oral) Med Classific ation: Hematolog ical Agents warfarin 5 mg tablet 12-29 00:00: 00 01-12 23:59 :00 No [id number] ANTICOAGULA NT Per instruc tions DIRECTED Per instructio ns DIRECTED (route: oral) Med Classific ation: Hematolog ical Agents Colette Allergy 180 mg tablet 2022-04 00:00: 00 03-15 23:59 :00 No [id number] Allergies 1 tablet DAILY 1 tablet DAILY (route: oral) Med Classific ation: Respirato ry Therapy Agents warfarin 4 mg tablet 2022-04 0-12 00:00: 00 01-31 23:59 :00 No [id number] afib- NEW INR RESULTS 2.6 Per instruc tions DAILY Per instructio ns DAILY (route: oral) Med Classific ation: Hematolog ical Agents warfarin 5 mg tablet 2022-04 0-12 00:00: 00 01-31 23:59 :00 No [id number] NEW INR RESULTS 2.6 Per instruc tions DAILY Per instructio ns DAILY (route: oral) Med Classific ation: Hematolog ical Agents warfarin 4 mg tablet 2022-04 0- 00:00: 00 02-06 23:59 :00 No [id number] AFFIB Per instruc tions DAILY Per instructio ns DAILY (route: oral) Med Classific ation: Hematolog ical Agents warfarin 5 mg tablet 2022-04 0- 00:00: 00 02-06 23:59 :00 No [id number] AFIB Per instruc tions DAILY Per instructio ns DAILY (route: oral) Med Classific ation: Hematolog ical Agents cefuroxime axetil 500 mg tablet 2022-04 0-30 00:00: 00 02-03 23:59 :00 No [id number] UTI 1 tablet 2 TIMES DAILY 1 tablet 2 TIMES DAILY (route: oral) Med Classific ation: Anti-Infe ctive Agents methylpredn isolone 4 mg tablet 2022-04 0-30 00:00: 00 02-02 23:59 :00 No [id number] KIDNEY INFECTION Per instruc tions DIRECTED Per instructio ns DIRECTED (route: oral) Med Classific ation: Endocrine warfarin 4 mg tablet 2022-04 0-31 00:00: 00 02-21 23:59 :00 No [id number] AFIB Per instruc tions DAILY Per instructio ns DAILY (route: oral) Med Classific ation: Hematolog ical Agents warfarin 5 mg tablet 2022-04 0-31 00:00: 00 02-21 23:59 :00 No [id number] AFIB Per instruc tions DAILY Per instructio ns DAILY (route: oral) Med Classific ation: Hematolog ical Agents Arginaid 4.5 gram-156 mg/9.2 gram oral powder packet 2022-04 00:00: 00 03-15 23:59 :00 No [id number] wound healing 1 powder in packet 2 TIMES DAILY 1 powder in packet 2 TIMES DAILY (route: oral) Med Classific ation: Electroly te Balance-N utritiona l Products bacitracin 500 unit/gram topical ointment 2022-04 00:00: 00 03-15 23:59 :00 No [id number] skin graft Per instruc tions DAILY Per instructio ns DAILY (route: topical) Med Classific ation: Dermatolo gical bisacodyl 10 mg rectal suppository 2022-04 00:00: 00 03-15 23:59 :00 No [id number] constipatio n 1 supposi tory, rectal DAILY 1 suppositor y, rectal DAILY (route: rectal) Med Classific ation: Gastroint estinal Therapy Agents magnesium hydroxide 400 mg/5 mL oral suspension 2022-04 00:00: 00 03-15 23:59 :00 No [id number] constipatio n 30 mL DAILY 30 mL DAILY (route: oral) Med Classific ation: Gastroint estinal Therapy Agents multivitami n tablet 2022-04 00:00: 00 03-15 23:59 :00 No [id number] Supplement 1 tablet DAILY 1 tablet DAILY (route: oral) Med Classific ation: Electroly te Balance-N utritiona l Products polyethylen e glycol 3350 17 gram oral powder packet 2022-04 00:00: 00 03-15 23:59 :00 No [id number] Constipatio n 17 g DIRECTED 17 g DIRECTED (route: oral) Med Classific ation: Gastroint estinal Therapy Agents psyllium oral powder 2022-04 00:00: 00 03-15 23:59 :00 No [id number] constipatio n Per instruc tions DAILY Per instructio ns DAILY (route: oral) Med Classific ation: Gastroint estinal Therapy Agents Senna Plus 8.6 mg-50 mg capsule 2022-04 00:00: 00 03-15 23:59 :00 No [id number] Constipatio n 1 capsule 2 TIMES DAILY 1 capsule 2 TIMES DAILY (route: oral) Med Classific ation: Gastroint estinal Therapy Agents sertraline 100 mg tablet 2022-04 0- 00:00: 00 03-15 23:59 :00 No [id number] depression 1.5 tablet DAILY 1.5 tablet DAILY (route: oral) Med Classific ation: Central Nervous System Agents Tylenol 325 mg tablet 2022-04 0 00:00: 00 03-15 23:59 :00 No [id number] pain 2 tablet DAILY 2 tablet DAILY (route: oral) Med Classific ation: Analgesic , Anti-infl ammatory or Antipyret ic Tylenol Arthritis Pain 650 mg tablet,exte nded release 2022-04 00:00: 00 03-15 23:59 :00 No [id number] Pain 1 tablet EVERY 4 HOURS 1 tablet EVERY 4 HOURS (route: oral) Med Classific ation: Analgesic , Anti-infl ammatory or Antipyret ic warfarin 4 mg tablet 2022-04 00:00: 00 02-14 23:59 :00 No [id number] HYPERTENSIV E HEART DISEASE 2-2.5 tablet DAILY 2-2.5 tablet DAILY (route: oral) Med Classific ation: Hematolog ical Agents warfarin 5 mg tablet 2022-04 00:00: 00 02-20 23:59 :00 No [id number] A FIB 1.5-2 tablet DAILY 1.5-2 tablet DAILY (route: oral) Med Classific ation: Hematolog ical Agents warfarin 4 mg tablet 2022-04 00:00: 00 02-26 23:59 :00 No [id number] AFIB Per instruc tions DAILY Per instructio ns DAILY (route: oral) Med Classific ation: Hematolog ical Agents warfarin 4 mg tablet 2022-04 00:00: 00 03-05 23:59 :00 No [id number] A FIB Per instruc tions DAILY Per instructio ns DAILY (route: oral) Med Classific ation: Hematolog ical Agents doxycycline hyclate 100 mg capsule 2022-04 00:00: 00 03-09 23:59 :00 No [id number] COUGH 1 capsule 2 TIMES DAILY 1 capsule 2 TIMES DAILY (route: oral) Med Classific ation: Anti-Infe ctive Agents bupropion HCl XL 150 mg 24 hr tablet, extended release 04-18 00:00: 00 06-15 23:59 :00 No [id number] DEPRESSION 150 mg EVERY AM 150 mg EVERY AM (route: oral) Med Classific ation: Central Nervous System Agents carvedilol 12.5 mg tablet 04-18 00:00: 00 06-15 23:59 :00 No [id number] BLOOD PRESSURE 1 tablet 2 TIMES DAILY 1 tablet 2 TIMES DAILY (route: oral) Med Classific ation: Cardiovas cular Therapy Agents dextrometho rphan guaifenesin oral capsule 10-200 regular 04-18 00:00: 00 06-15 23:59 :00 No [id number] COUGH 1 capsule EVERY 12 HOURS 1 capsule EVERY 12 HOURS (route: BY MOUTH) Med Classific ation: ANTITUSSI VES/EXPEC TORANT Enema 19 gram-7 gram/118 mL 04-18 00:00: 00 06-15 23:59 :00 No [id number] CONSTIPATIO N 118 mL DAILY 118 mL DAILY (route: rectal) Med Classific ation: Gastroint estinal Therapy Agents fexofenadin e 180 mg tablet 04-18 00:00: 00 06-15 23:59 :00 No [id number] ALLERGIES 1 tablet EVERY AM 1 tablet EVERY AM (route: oral) Med Classific ation: Respirato ry Therapy Agents furosemide 80 mg tablet 04-18 00:00: 00 06-15 23:59 :00 No [id number] WATER RETENTION 1 tablet 2 TIMES DAILY 1 tablet 2 TIMES DAILY (route: oral) Med Classific ation: Cardiovas cular Therapy Agents gabapentin 600 mg tablet 04-18 00:00: 00 06-15 23:59 :00 No [id number] PAIN 2 tablet 3 TIMES DAILY 2 tablet 3 TIMES DAILY (route: oral) Med Classific ation: Central Nervous System Agents Klor-Con M20 mEq tablet,exte nded release 04-18 00:00: 00 06-15 23:59 :00 No [id number] EDEMA 1 tablet 3 TIMES DAILY 1 tablet 3 TIMES DAILY (route: oral) Med Classific ation: Electroly te Balance-N utritiona l Products levothyroxi ne 175 mcg tablet 04-18 00:00: 00 06-15 23:59 :00 No [id number] LOW THYROID 1 tablet EVERY AM 1 tablet EVERY AM (route: oral) Med Classific ation: Endocrine Miralax 17 gram oral powder packet 04-18 00:00: 00 06-15 23:59 :00 No [id number] CONSTIPATIO N 1 packet EVERY AM 1 packet EVERY AM (route: oral) Med Classific ation: Gastroint estinal Therapy Agents sennosides 8.6 mg-docusate sodium 50 mg tablet 04-18 00:00: 00 06-15 23:59 :00 No [id number] CONSTIPATIO N 1 tablet 2 TIMES DAILY 1 tablet 2 TIMES DAILY (route: oral) Med Classific ation: Gastroint estinal Therapy Agents sertraline 150 mg capsule 04-18 00:00: 00 06-15 23:59 :00 No [id number] DEPRESSION 1 capsule EVERY AM 1 capsule EVERY AM (route: oral) Med Classific ation: Central Nervous System Agents tramadol 50 mg tablet 04-18 00:00: 00 06-15 23:59 :00 No [id number] PAIN 1 tablet PRN Q 6HRS 1 tablet PRN Q 6HRS (route: oral) Med Classific ation: Analgesic , Anti-infl ammatory or Antipyret ic Tylenol 325 mg tablet 04-18 00:00: 00 06-15 23:59 :00 No [id number] PAIN 2 tablet EVERY AM 2 tablet EVERY AM (route: oral) Med Classific ation: Analgesic , Anti-infl ammatory or Antipyret ic Tylenol Arthritis Pain 650 mg tablet,exte nded release 04-18 00:00: 00 06-15 23:59 :00 No [id number] PAIN 1 tablet PRN Q 4HRS 1 tablet PRN Q 4HRS (route: oral) Med Classific ation: Analgesic , Anti-infl ammatory or Antipyret ic Vitamin D3 25 mcg (1,000 unit) tablet 04-18 00:00: 00 06-15 23:59 :00 No [id number] SUPPLEMENT 1 tablet EVERY AM 1 tablet EVERY AM (route: oral) Med Classific ation: Electroly te Balance-N utritiona l Products warfarin 6 mg tablet 04-18 00:00: 00 04-18 23:59 :00 No [id number] BLOOD CLOT PREVENTION 1 tablet DIRECTED 1 tablet DIRECTED (route: oral) Med Classific ation: Hematolog ical Agents warfarin 6 mg tablet 04-19 00:00: 00 04-24 23:59 :00 No [id number] blood clot prevention 1 tablet DIRECTED 1 tablet DIRECTED (route: oral) Med Classific ation: Hematolog ical Agents warfarin 7.5 mg tablet 04-19 00:00: 00 04-24 23:59 :00 No [id number] blood clot prevention 1 tablet DIRECTED 1 tablet DIRECTED (route: oral) Med Classific ation: Hematolog ical Agents warfarin 6 mg tablet 04-25 00:00: 00 05-09 23:59 :00 No [id number] Blood clot prevention Per instruc tions DIRECTED Per instructio ns DIRECTED (route: oral) Med Classific ation: Hematolog ical Agents warfarin 7.5 mg tablet - 00:00: 00 05-09 23:59 :00 No [id number] Blood clot prevention Per instruc tions DIRECTED Per instructio ns DIRECTED (route: oral) Med Classific ation: Hematolog ical Agents warfarin 6 mg tablet -06 00:00: 00 05-16 23:59 :00 No [id number] A FIB 1 tablet DAILY 1 tablet DAILY (route: oral) Med Classific ation: Hematolog ical Agents warfarin 7.5 mg tablet 2023-0 2-06 00:00: 00 05-16 23:59 :00 No [id number] A FIB 1 tablet DAILY 1 tablet DAILY (route: oral) Med Classific ation: Hematolog ical Agents warfarin 6 mg tablet 4-0 2-13 00:00: 00 05-22 23:59 :00 No [id number] ANTICOUGALA TION 6 mg BEDTIME 6 mg BEDTIME (route: oral) Med Classific ation: Hematolog ical Agents warfarin 7.5 mg tablet 2023-0 2-13 00:00: 00 05-22 23:59 :00 No [id number] ANTICOUGALT ION 7.5 mg BEDTIME 7.5 mg BEDTIME (route: oral) Med Classific ation: Hematolog ical Agents warfarin 6 mg tablet 2023-0 2-20 00:00: 00 05-30 23:59 :00 No [id number] A FIB 1 tablet DAILY 1 tablet DAILY (route: oral) Med Classific ation: Hematolog ical Agents warfarin 7.5 mg tablet 2023-0 2-20 00:00: 00 05-30 23:59 :00 No [id number] A FIB 1 tablet DAILY 1 tablet DAILY (route: oral) Med Classific ation: Hematolog ical Agents warfarin 6 mg tablet 2023-0 2-27 00:00: 00 06-04 23:59 :00 No [id number] ANTICOUGLAT ION- AFIB 6 mg BEDTIME 6 mg BEDTIME (route: oral) Med Classific ation: Hematolog ical Agents warfarin 7.5 mg tablet 2023-0 2-27 00:00: 00 06-04 23:59 :00 No [id number] ANTICOUAGAL TION - AFIB 7.5 mg BEDTIME 7.5 mg BEDTIME (route: oral) Med Classific ation: Hematolog ical Agents warfarin 7.5 mg tablet 4-0 3-06 00:00: 00 06-15 23:59 :00 No [id number] A FIB 1 tablet DAILY 1 tablet DAILY (route: oral) Med Classific ation: Hematolog ical Agents acetaminoph en 500 mg tablet 06-18 00:00: 00 Yes [id number] PAIN 1-2 tablet PRN Q 6HRS 1-2 tablet PRN Q 6HRS (route: oral) Med Classific ation: Analgesic , Anti-infl ammatory or Antipyret ic bupropion HCl XL 150 mg 24 hr tablet, extended release 06-18 00:00: 00 08-25 23:59 :00 No [id number] MOOD 1 tablet EVERY AM 1 tablet EVERY AM (route: oral) Med Classific ation: Central Nervous System Agents ciprofloxac in 500 mg tablet 06-18 00:00: 00 06-21 23:59 :00 No [id number] UTI 1 tablet EVERY 12 HOURS 1 tablet EVERY 12 HOURS (route: oral) Med Classific ation: Anti-Infe ctive Agents codeine 10 mg-guaifene sin 100 mg/5 mL oral liquid 06-18 00:00: 00 08-25 23:59 :00 No [id number] COUGH 10 mL PRN Q 4HRS 10 mL PRN Q 4HRS (route: oral) Med Classific ation: Respirato ry Therapy Agents digoxin 125 mcg (0.125 mg) tablet 06-18 00:00: 00 08-25 23:59 :00 No [id number] DVT 1 tablet DAILY 1 tablet DAILY (route: oral) Med Classific ation: Cardiovas cular Therapy Agents enoxaparin 100 mg/mL subcutaneou s syringe 06-18 00:00: 00 07-03 23:59 :00 No [id number] DVT 0.9 mL EVERY 12 HOURS 0.9 mL EVERY 12 HOURS (route: subcutaneo us) Med Classific ation: Hematolog ical Agents furosemide 40 mg tablet 06-18 00:00: 00 Yes [id number] FLUID OVERLOAD 1 tablet 2 TIMES DAILY 1 tablet 2 TIMES DAILY (route: oral) Med Classific ation: Cardiovas cular Therapy Agents gabapentin 300 mg capsule 06-18 00:00: 00 08-25 23:59 :00 No [id number] PAIN 1 capsule 3 TIMES DAILY 1 capsule 3 TIMES DAILY (route: oral) Med Classific ation: Central Nervous System Agents levothyroxi ne 175 mcg tablet 06-18 00:00: 00 08-25 23:59 :00 No [id number] HYPOTHYROID ISM 1 tablet DAILY 1 tablet DAILY (route: oral) Med Classific ation: Endocrine metoprolol succinate ER 100 mg tablet,exte nded release 24 hr 06-18 00:00: 00 Yes [id number] HTN 1 tablet DAILY 1 tablet DAILY (route: oral) Med Classific ation: Cardiovas cular Therapy Agents Nutritional Drink oral liquid 06-18 00:00: 00 Yes [id number] WOUND Per instruc tions DIRECTED Per instructio ns DIRECTED (route: oral) Med Classific ation: Electroly te Balance-N utritiona l Products Senna with Docusate Sodium 8.6 mg-50 mg tablet 06-18 00:00: 00 Yes [id number] CONSTIPATIO N 2 tablet 2 TIMES DAILY 2 tablet 2 TIMES DAILY (route: oral) Med Classific ation: Gastroint estinal Therapy Agents sertraline 100 mg tablet 06-18 00:00: 00 08-25 23:59 :00 No [id number] MOOD 1 tablet DIRECTED 1 tablet DIRECTED (route: oral) Med Classific ation: Central Nervous System Agents sertraline 50 mg tablet 06-18 00:00: 00 08-25 23:59 :00 No [id number] MOOD 1 tablet DIRECTED 1 tablet DIRECTED (route: oral) Med Classific ation: Central Nervous System Agents Vitamin D3 125 mcg (5,000 unit) tablet 06-18 00:00: 00 Yes [id number] VITAMIN DEFICIENCY Per instruc tions DAILY Per instructio ns DAILY (route: oral) Med Classific ation: Electroly te Balance-N utritiona l Products warfarin 6 mg tablet 06-18 00:00: 00 06-18 23:59 :00 No [id number] HX DVT Per instruc tions DIRECTED Per instructio ns DIRECTED (route: oral) Med Classific ation: Hematolog ical Agents warfarin 7.5 mg tablet 2023-0 18 00:00: 00 06-18 23:59 :00 No [id number] HX DVT 1 tablet DIRECTED 1 tablet DIRECTED (route: oral) Med Classific ation: Hematolog ical Agents wound support modular liquid 2023-0 318 00:00: 00 07-19 23:59 :00 No [id number] WOUND SUPPORT 60 ml DAILY 60 ml DAILY (route: BY MOUTH) Med Classific ation: NONE warfarin 7.5 mg tablet 0 3-19 00:00: 00 06-24 23:59 :00 No [id number] History of DVT Per instruc tions DIRECTED Per instructio ns DIRECTED (route: oral) Med Classific ation: Hematolog ical Agents warfarin 7.5 mg tablet 0 06-25 00:00: 00 06-29 23:59 :00 No [id number] history of dvt Per instruc tions BEDTIME Per instructio ns BEDTIME (route: oral) Med Classific ation: Hematolog ical Agents warfarin 7.5 mg tablet 06-29 00:00: 00 07-02 23:59 :00 No [id number] ANTCOAGULAN T Per instruc tions BEDTIME Per instructio ns BEDTIME (route: oral) Med Classific ation: Hematolog ical Agents warfarin 7.5 mg tablet 0 07-03 00:00: 00 07-09 23:59 :00 No [id number] ANTICOAGULA NT 7.5 mg BEDTIME 7.5 mg BEDTIME (route: oral) Med Classific ation: Hematolog ical Agents warfarin 7.5 mg tablet 0 09 00:00: 00 07-11 23:59 :00 No [id number] TO PREVENT BLOOD CLOT 7.5 mg BEDTIME 7.5 mg BEDTIME (route: oral) Med Classific ation: Hematolog ical Agents warfarin 7.5 mg tablet 2023-0 - 00:00: 00 07-16 23:59 :00 No [id number] PREVENT BLOOD CLOT 7.5-11. 25 mg BEDTIME 7.5-11.25 mg BEDTIME (route: oral) Med Classific ation: Hematolog ical Agents warfarin 7.5 mg tablet 16 00:00: 00 07-24 23:59 :00 No [id number] BLOOD THINNER Per instruc tions DAILY Per instructio ns DAILY (route: oral) Med Classific ation: Hematolog ical Agents warfarin 7.5 mg tablet 07-24 00:00: 00 08-06 23:59 :00 No [id number] PREVENT BLOOD CLOT Per instruc tions BEDTIME Per instructio ns BEDTIME (route: oral) Med Classific ation: Hematolog ical Agents warfarin 7.5 mg tablet 08-07 00:00: 00 08-13 23:59 :00 No [id number] PREVENT BLOOD CLOT 7.5 mg BEDTIME 7.5 mg BEDTIME (route: oral) Med Classific ation: Hematolog ical Agents warfarin 7.5 mg tablet 08-17 00:00: 00 08-21 23:59 :00 No [id number] ANTICOAGULA TION 1-1.5 tablet BEDTIME 1-1.5 tablet BEDTIME (route: oral) Med Classific ation: Hematolog ical Agents warfarin 7.5 mg tablet 08-21 00:00: 00 09-04 23:59 :00 No [id number] ANTICOAGULA TION 1-1.5 tablet BEDTIME 1-1.5 tablet BEDTIME (route: oral) Med Classific ation: Hematolog ical Agents bupropion HCl XL 150 mg 24 hr tablet, extended release 08-25 00:00: 00 Yes [id number] DEPRESSION 1 tablet EVERY PM 1 tablet EVERY PM (route: oral) Med Classific ation: Central Nervous System Agents gabapentin 600 mg tablet 08-25 00:00: 00 Yes [id number] PAIN 2 tablet 3 TIMES DAILY 2 tablet 3 TIMES DAILY (route: oral) Med Classific ation: Central Nervous System Agents levothyroxi ne 150 mcg tablet 08-25 00:00: 00 Yes [id number] HYPOTHYROID 1 tablet EVERY AM 1 tablet EVERY AM (route: oral) Med Classific ation: Endocrine oxybutynin chloride ER 5 mg tablet,exte nded release 24 hr 5 00:00: 00 Yes [id number] BLADDER SPASMS 1 tablet EVERY PM 1 tablet EVERY PM (route: oral) Med Classific ation: Genitouri nary Therapy sulfamethox azole 800 mg-trimetho prim 160 mg tablet 08-23 00:00: 00 08-30 23:59 :00 No [id number] UTI 1 tablet 2 TIMES DAILY 1 tablet 2 TIMES DAILY (route: oral) Med Classific ation: Anti-Infe ctive Agents warfarin 7.5 mg tablet 09-04 00:00: 00 09-11 23:59 :00 No [id number] BLOOD THINNER 1-1.5 tablet DIRECTED 1-1.5 tablet DIRECTED (route: oral) Med Classific ation: Hematolog ical Agents warfarin 7.5 mg tablet 09-11 00:00: 00 09-17 23:59 :00 No [id number] BLOOD THINNER 7.5 tablet DAILY 7.5 tablet DAILY (route: oral) Alternate Route: BY MOUTH. Med Classific ation: Hematolog ical Agents warfarin 7.5 mg tablet 09-17 00:00: 00 09-30 23:59 :00 No [id number] BLOOD CLOT PREVENTION 1 tablet DAILY 1 tablet DAILY (route: oral) Med Classific ation: Hematolog ical Agents warfarin 7.5 mg tablet 10-01 00:00: 00 10-02 23:59 :00 No [id number] blood clot prevention 1 tablet DAILY 1 tablet DAILY (route: oral) Med Classific ation: Hematolog ical Agents warfarin 7.5 mg tablet 10-02 00:00: 00 10-09 23:59 :00 No [id number] BLOOD THINNER 1 tablet DIRECTED 1 tablet DIRECTED (route: oral) Med Classific ation: Hematolog ical Agents warfarin 7.5 mg tablet 10-09 00:00: 00 10-23 23:59 :00 No [id number] ANTICOAGULA NT 1 tablet DAILY 1 tablet DAILY (route: oral) Med Classific ation: Hematolog ical Agents warfarin 7.5 mg tablet 7-23 00:00: 00 12-04 23:59 :00 No [id number] BLOOD THINNER 1 tablet DIRECTED 1 tablet DIRECTED (route: oral) Alternate Route: BY MOUTH/UND ER TONGUE. Med Classific ation: Hematolog ical Agents warfarin 7.5 mg tablet 12-04 00:00: 00 12-19 23:59 :00 No [id number] HEMATOLOGIC AL AGENT 7.5 mg DIRECTED 7.5 mg DIRECTED (route: oral) Alternate Route: BY MOUTH. Med Classific ation: Hematolog ical Agents warfarin 5 mg tablet 12-18 00:00: 00 01-07 23:59 :00 No [id number] HEMATOLOGIC AL AGENT 5 mg DIRECTED 5 mg DIRECTED (route: oral) Alternate Route: BY MOUTH. Med Classific ation: Hematolog ical Agents warfarin 5 mg tablet 2023-04 0-08 00:00: 00 01-15 23:59 :00 No [id number] BLOOD THINNER 5 mg DAILY 5 mg DAILY (route: oral) Alternate Route: BY MOUTH. Med Classific ation: Hematolog ical Agents warfarin 7.5 mg tablet 2023-0415 00:00: 00 01-23 23:59 :00 No [id number] BLOOD THINNER 7.5 mg DAILY 7.5 mg DAILY (route: oral) Med Classific ation: Hematolog ical Agents cephalexin 500 mg capsule 2023-04 0-10 00:00: 01-20 23:59 :00 No [id number] UTI 500 mg 2 TIMES DAILY 500 mg 2 TIMES DAILY (route: oral) Med Classific ation: Anti-Infe ctive Agents warfarin 7.5 mg tablet 2023-04 0-23 00:00: 00 01-30 23:59 :00 No [id number] BLOOD THINNER 7.5 mg DAILY 7.5 mg DAILY (route: oral) Med Classific ation: Hematolog ical Agents warfarin 7.5 mg tablet 2023-04 0-30 00:00: 00 02-06 23:59 :00 No [id number] BLOOD THINNER 7.5 mg DAILY 7.5 mg DAILY (route: oral) Med Classific ation: Hematolog ical Agents warfarin 7.5 mg tablet 2023-04- 00:00: 00 02-20 23:59 :00 No [id number] BLOOD THINNER 7.5 mg DAILY 7.5 mg DAILY (route: oral) Med Classific ation: Hematolog ical Agents warfarin 7.5 mg tablet 2023-04 00:00: 00 03-06 23:59 :00 No [id number] BLOOD THINNER 7.5 mg DAILY 7.5 mg DAILY (route: oral) Med Classific ation: Hematolog ical Agents warfarin 7.5 mg tablet 2023-04 00:00: 00 03-20 23:59 :00 No [id number] BLOOD THINNER 7.5 mg DAILY 7.5 mg DAILY (route: oral) Med Classific ation: Hematolog ical Agents warfarin 7.5 mg tablet 2023-04 00:00: 00 04-04 23:59 :00 No [id number] BLOOD THINNER 7.5 mg DAILY 7.5 mg DAILY (route: oral) Med Classific ation: Hematolog ical Agents albuterol sulfate HFA 90 mcg/actuati on aerosol inhaler 2023-04 00:00: 00 Yes [id number] COUGH, WHEEZING, SOB 2 puff EVERY 6 HOURS 2 puff EVERY 6 HOURS (route: inhalation ) Med Classific ation: Respirato ry Therapy Agents Guaifenesin AC 10 mg-100 mg/5 mL oral liquid 2023-04 00:00: 00 Yes [id number] COUGH 5-10 mL EVERY 4 HOURS 5-10 mL EVERY 4 HOURS (route: oral) Med Classific ation: Respirato ry Therapy Agents warfarin 7.5 mg tablet 04-04 00:00: 00 04-11 23:59 :00 No [id number] BLOOD THINNER 7.5 mg DAILY 7.5 mg DAILY (route: oral) Med Classific ation: Hematolog ical Agents doxycycline hyclate 100 mg capsule - 00:00: 00 04-14 23:59 :00 No [id number] RESPIRATORY INFECTION 1 capsule 2 TIMES DAILY 1 capsule 2 TIMES DAILY (route: oral) Med Classific ation: Anti-Infe ctive Agents warfarin 7.5 mg tablet 1-12 00:00: 00 04-18 23:59 :00 No [id number] BLOOD THINNER 7.5 mg DAILY 7.5 mg DAILY (route: oral) Med Classific ation: Hematolog ical Agents warfarin 7.5 mg tablet -16 00:00: 00 04-25 23:59 :00 No [id number] BLOOD THINNER 7.5 mg DAILY 7.5 mg DAILY (route: oral) Med Classific ation: Hematolog ical Agents warfarin 7.5 mg tablet 04-25 00:00: 00 05-02 23:59 :00 No [id number] BLOOD THINNER 7.5 mg DAILY 7.5 mg DAILY (route: oral) Med Classific ation: Hematolog ical Agents warfarin 7.5 mg tablet 05-02 00:00: 00 05-09 23:59 :00 No [id number] BLOOD THINNER 1 tablet DAILY 1 tablet DAILY (route: oral) Med Classific ation: Hematolog ical Agents warfarin 7.5 mg tablet 06 00:00: 00 05-16 23:59 :00 No [id number] BLOOD THINNER 7.5 mg DAILY 7.5 mg DAILY (route: oral) Alternate Route: BY MOUTH. Med Classific ation: Hematolog ical Agents budesonide 0.5 mg/2 mL suspension for nebulizatio n -20 00:00: 00 Yes [id number] COUGH 0.5 mL 2 TIMES DAILY 0.5 mL 2 TIMES DAILY (route: inhalation ) Med Classific ation: Respirato ry Therapy Agents warfarin 7.5 mg tablet - 00:00: 00 05-23 23:59 :00 No [id number] BLOOD THINNER 7.5 mg DAILY 7.5 mg DAILY (route: oral) Alternate Route: BY MOUTH. Med Classific ation: Hematolog ical Agents warfarin 7.5 mg tablet -20 00:00: 00 05-30 23:59 :00 No [id number] BLOODTHINNE R 7.5 mg DAILY 7.5 mg DAILY (route: oral) Alternate Route: BY MOUTH. Med Classific ation: Hematolog ical Agents warfarin 5 mg tablet 2024-0 2-27 00:00: 00 06-06 23:59 :00 No [id number] INR 2.6. CONTINUE 7.5MG OF WARFARIN, 1.5 TABS DAILY Per instruc tions DAILY Per instructio ns DAILY (route: oral) Alternate Route: BY MOUTH. Med Classific ation: Hematolog ical Agents warfarin 5 mg tablet 2024-0 3-06 00:00: 00 06-12 23:59 :00 No [id number] BLOOD THINNER Per instruc tions DAILY Per instructio ns DAILY (route: oral) Alternate Route: BY MOUTH. Med Classific ation: Hematolog ical Agents warfarin 5 mg tablet 2024-0 3-13 00:00: 00 06-18 23:59 :00 No [id number] BLOOD THINNER. Per instruc tions DAILY Per instructio ns DAILY (route: oral) Alternate Route: BY MOUTH. Med Classific ation: Hematolog ical Agents warfarin 7.5 mg tablet 2024-0 3-19 00:00: 00 06-26 23:59 :00 No [id number] blood thinner 1 tablet DAILY 1 tablet DAILY (route: oral) Med Classific ation: Hematolog ical Agents warfarin 7.5 mg tablet 2024-0 3-26 00:00: 00 07-09 23:59 :00 No [id number] BLOOD THINNER 1 tablet DAILY 1 tablet DAILY (route: oral) Med Classific ation: Hematolog ical Agents warfarin 7.5 mg tablet 5-0 4-08 00:00: 00 07-15 23:59 :00 No [id number] BLOOD THINNER 1 tablet DAILY 1 tablet DAILY (route: oral) Med Classific ation: Hematolog ical Agents warfarin 7.5 mg tablet 2024-0 4-15 00:00: 00 07-17 23:59 :00 No [id number] Blood thinner 1 tablet DAILY 1 tablet DAILY (route: oral) Med Classific ation: Hematolog ical Agents warfarin 7.5 mg tablet 2025-0 4-16 00:00: 00 07-23 23:59 :00 No [id number] blood thinner Per instruc tions DIRECTED Per instructio ns DIRECTED (route: oral) Med Classific ation: Hematolog ical Agents warfarin 7.5 mg tablet 07-23 00:00: 00 07-30 23:59 :00 No [id number] BLOOD THINNER 1 tablet DAILY 1 tablet DAILY (route: oral) Med Classific ation: Hematolog ical Agents warfarin 7.5 mg tablet 07-30 00:00: 00 08-13 23:59 :00 No [id number] BLOOD THINNER 1 tablet DAILY 1 tablet DAILY (route: oral) Med Classific ation: Hematolog ical Agents warfarin 2.5 mg tablet 08-13 00:00: 00 Yes [id number] BLOOD THINNER Per instruc tions DAILY Per instructio ns DAILY (route: oral) Med Classific ation: Hematolog ical Agents Immunizations Ordered Immunization Name Filled Immunization Name Date Status Comments INFLUENZA, TIV (INACTIVATED) 2022-06-02 00:00:00 COVID-19 PFIZER 2, COVID-19 PFIZER 2 2020-06-13 00:00:00 PNEUMOCOCCAL (PPV), PPV 00:00:00 Vital Signs Vital Name Observation Time Observation Value Commen ts Temperature 2024-08-13 12:25:00.000 98.9 [degF] Pulse 2024-08-13 12:25:00.000 74 /min O2 Saturation (%) 2024-08-13 12:25:00.000 91 % Respirations 2024-08-13 12:25:00.000 18 /min Systolic Blood Pressure 2024-08-13 12:25:00.000 122 mm [Hg] Diastolic Blood Pressure 2024-08-13 12:25:00.000 65 mm [Hg] Plan of Care Planned Activity Planned Date Details Comments Future Scheduled Test SKILLED NU RSE TO EVALUATE AND DEVELOP PLAN OF CARE TO BE COUNTERSIGNED BY PHYSICIAN. SKILLED NURSE TO ASSESS/EVALUATE CO-MORBID CONDITIONS INCLUDING WOUND CARE, CATHETER MANAGEMENT/CHANGES, INR MANAGEMENT, AND OTHER CONDITIONS THAT PRESENT THEMSELVES DURING THE COURSE OF THIS EPISODE TO IDENTIFY CHANGES AND INTERVENE TO MINIMIZE COMPLICATIONS. HOME [facility]ALTH AGENCY MAY ACCEPT ORDERS FROM THE FOLLOWING PHYSICIANS AND THEIR ASSOCIATES: ALINE YUNG EMERGENCY PREPAREDNESS PLAN: REVIEWED EMERGENCY PREPAREDNESS PLAN, CLIENT WILL EVACUATE TO FAMILY EVACUATION PLAN IN THE EVENT OF AN EMERGENCY. ACUITY STATUS: 3- WITHIN WEEK POC SUMMARY: PRIMARY DIAGNOSIS FOR CONTINUED (RECERT) CARE- N31.9 NEUROMUSCULAR DYSFUNCTION OF BLADDER, UNSPECIFIED REASON FOR CONTINUED CARE: (WHY PREVIOUS GOALS WERE NOT MET? WHAT CAUSED THE GOALS NOT TO BE MET IN PREVIOUS EPISODE. COMORBIDITIES IMPACT ON CARE?) CATHETER AND INR MANAGEMENT ARE THERE ANY NEW MEDICAL CONDITIONS SINCE SOC/GOLDEN? NO MEDICATION RECONCILIATION RESULTS (NEW OR CHANGED MEDICATIONS? MISSED DOSES? PROGRESS OF CAREGIVER TRAINING?) NO NEW MEDICATIONS ADDITIONAL DISCIPLINES ORDERED AND WHY? [employer]ER FITTER AND PT ALREADY INVOLVED MD ESTIMATED DURATION OF CONTINUED SKILLED CARE: (NUMBER OF WEEKS VISITS PLOTTED) 9 WEEKS ANY ER/HOSPITALIZATION CARE DURING PREVIOUS EPISODE? (IF YES, PROVIDE DETAILS ? QI REPORTS, ACL NOTES, COORDINATION NOTES) NO DOES THE CLIENT EXHIBIT COGNITIVE OR BEHAVIORAL DEFICITS IMPACTING ADHERENCE TO HOME HEALTH PLAN OF CARE? IF YES, EXPLAIN NO DOES THE CLIENT/CAREGIVER HAVE APPROPRIATE RETURN DEMONSTRATION OF SKILLS OR EDUCATION? IF YES, EXPLAIN PLAN FOR DISCHARGE. IF NO, EXPLAIN PLAN FOR MEETING NEEDS. NA, NOT A TEACHABLE SKILL [facility] 10 SCORE- 7 PLEASE NOTE IF SCORE 7 OR ABOVE, FOLLOWING QUESTIONS MUST BE ANSWERED, FOR OF SCORE 4-6- HIGHLY RECOMMENDED TO ANSWER: 1> WHAT SPECIFIC INTERVENTIONS ARE IN PLAN OF CARE TO PREVENT A FALL? 1-2 ASSIST WITH TRANSFER, WHEELCHAIR, SHOWER CHAIR, GRAB BARS, FAMILY IN HOME 2> DOES THERAPY NEED TO BE INVOLVED? (IF NOT ALREADY ORDERED) PT INVOLVED 3> IS LEVEL OF CARE APPROPRIATE FOR CLIENT TO PREVENT FALLS? CURRENTLY YES 4> ANY ADDITIONAL EQUIPMENT NEEDED TO PREVENT FALLS? CURRENTLY NO 5> HOW MANY FALLS HAS CLIENT HAD SINCE LAST SOC/GOLDEN 0 [code = SKILLED NURSE TO EVALUATE AND DEVELOP PLAN OF CARE TO BE COUNTERSIGNED BY PHYSICIAN. SKILLED NURSE TO ASSESS/EVALUATE CO-MORBID CONDITIONS INCLUDING WOUND CARE, CATHETER MANAGEMENT/CHANGES, INR MANAGEMENT, AND OTHER CONDITIONS THAT PRESENT THEMSELVES DURING THE COURSE OF THIS EPISODE TO IDENTIFY CHANGES AND INTERVENE TO MINIMIZE COMPLICATIONS. HOME HEALTH AGENCY MAY ACCEPT ORDERS FROM THE FOLLOWING PHYSICIANS AND THEIR ASSOCIATES: [facility] EMERGENCY PREPAREDNESS PLAN: REVIEWED EMERGENCY PREPAREDNESS PLAN, CLIENT WILL EVACUATE TO FAMILY EVACUATION PLAN IN THE EVENT OF AN EMERGENCY. ACUITY STATUS: 3- WITHIN WEEK POC SUMMARY: PRIMARY DIAGNOSIS FOR CONTINUED (RECERT) CARE- N31.9 NEUROMUSCULAR DYSFUNCTION OF BLADDER, UNSPECIFIED REASON FOR CONTINUED CARE: (WHY PREVIOUS GOALS WERE NOT MET? WHAT CAUSED THE GOALS NOT TO BE MET IN PREVIOUS EPISODE. COMORBIDITIES IMPACT ON CARE?) CATHETER AND INR MANAGEMENT ARE THERE ANY NEW MEDICAL CONDITIONS SINCE SOC/GOLDEN? NO MEDICATION RECONCILIATION RESULTS (NEW OR CHANGED MEDICATIONS? MISSED DOSES? PROGRESS OF CAREGIVER TRAINING?) NO NEW MEDICATIONS ADDITIONAL DISCIPLINES ORDERED AND WHY? [employer]INK[employer] FITTER AND PT ALREADY INVOLVED MD ESTIMATED DURATION OF CONTINUED SKILLED CARE: (NUMBER OF WEEKS VISITS PLOTTED) 9 WEEKS ANY ER/HOSPITALIZATION CARE DURING PREVIOUS EPISODE? (IF YES, PROVIDE DETAILS ? QI REPORTS, ACL NOTES, COORDINATION NOTES) NO DOES THE CLIENT EXHIBIT COGNITIVE OR BEHAVIORAL DEFICITS IMPACTING ADHERENCE TO HOME HEALTH PLAN OF CARE? IF YES, EXPLAIN NO DOES THE CLIENT/CAREGIVER HAVE APPROPRIATE RETURN DEMONSTRATION OF SKILLS OR EDUCATION? IF YES, EXPLAIN PLAN FOR DISCHARGE. IF NO, EXPLAIN PLAN FOR MEETING NEEDS. NA, NOT A TEACHABLE SKILL [facility] 10 SCORE- 7 PLEASE NOTE IF SCORE 7 OR ABOVE, FOLLOWING QUESTIONS MUST BE ANSWERED, FOR OF SCORE 4-6- HIGHLY RECOMMENDED TO ANSWER: 1> WHAT SPECIFIC INTERVENTIONS ARE IN PLAN OF CARE TO PREVENT A FALL? 1-2 ASSIST WITH TRANSFER, WHEELCHAIR, SHOWER CHAIR, GRAB BARS, FAMILY IN HOME 2> DOES THERAPY NEED TO BE INVOLVED? (IF NOT ALREADY ORDERED) PT INVOLVED 3> IS LEVEL OF CARE APPROPRIATE FOR CLIENT TO PREVENT FALLS? CURRENTLY YES 4> ANY ADDITIONAL EQUIPMENT NEEDED TO PREVENT FALLS? CURRENTLY NO 5> HOW MANY FALLS HAS CLIENT HAD SINCE LAST SOC/GOLDEN 0] Future Scheduled Test SKILLED NU RSE TO PROVIDE INSTRUCTIONS RELATED TO MANAGEMENT OF CONGESTIVE HEART FAILURE INCLUDING BUT NOT LIMITED TO DEFINITION, RISKS FACTORS, MEASURES TO PREVENT EXACERBATION, SIGNS/SYMPTOMS AND POTENTIAL COMPLICATIONS. [code = SKILLED NURSE TO PROVIDE INSTRUCTIONS RELATED TO MANAGEMENT OF CONGESTIVE HEART FAILURE INCLUDING BUT NOT LIMITED TO DEFINITION, RISKS FACTORS, MEASURES TO PREVENT EXACERBATION, SIGNS/SYMPTOMS AND POTENTIAL COMPLICATIONS.] Future Scheduled Test SKILLED NU RSE FOR MONITORING EFFECTIVENESS OF ANTICOAGULATION THERAPY REGIMEN AND SKILLED INSTRUCTION RELATED TO ANTICOAGULATION MANAGEMENT. [code = SKILLED NURSE FOR MONITORING EFFECTIVENESS OF ANTICOAGULATION THERAPY REGIMEN AND SKILLED INSTRUCTION RELATED TO ANTICOAGULATION MANAGEMENT. ] Future Scheduled Test SKILLED NU RSE TO OBTAIN SPECIMEN FOR PT/INR VIA FINGERSTICK ORDERED [code = SKILLED NURSE TO OBTAIN SPECIMEN FOR PT/INR VIA FINGERSTICK ORDERED] Future Scheduled Test SKILLED NU RSE TO PERFORM OBSERVATION/ASSESSMENT OF GENITOURINARY STATUS AND INTERVENE TO MINIMIZE COMPLICATIONS OF DISEASE PROCESS. SKILLED NURSE TO PROVIDE INSTRUCTION REGARDING MANAGEMENT OF DISEASE PROCESS, INCLUDING PATHOPHYSIOLOGY, NUTRITIONAL/FLUID REQUIREMENTS AND MEDICATION REGIMEN. [code = SKILLED NURSE TO PERFORM OBSERVATION/ASSESSMENT OF GENITOURINARY STATUS AND INTERVENE TO MINIMIZE COMPLICATIONS OF DISEASE PROCESS. SKILLED NURSE TO PROVIDE INSTRUCTION REGARDING MANAGEMENT OF DISEASE PROCESS, INCLUDING PATHOPHYSIOLOGY, NUTRITIONAL/FLUID REQUIREMENTS AND MEDICATION REGIMEN.] Future Scheduled Test SKILLED NU RSE FOR INSERTION OF 18FR CATHETER MAINTENANCE WITH 30 CC BALLOON, CHANGE Q 4 WEEKS AND PRN DISLODGMENT OR STOPPAGE, AND OBTAIN URINE SPECIMEN INDICATED.SKILLED NURSE TO INSTRUCT PATIENT / CAREGIVER IN INDWELLING URINARY CATHETER INCLUDING CARE OF ROCA CATHETER, SIGN AND SYMPTOMS OF COMPLICATIONS, PERINEAL CARE, TUBE AND BAG PLACEMENT. PERFORM OBSERVATION AND ASSESSMENT OF GENITOURINARY SYSTEM. [code = SKILLED NURSE FOR INSERTION OF 18FR CATHETER MAINTENANCE WITH 30 CC BALLOON, CHANGE Q 4 WEEKS AND PRN DISLODGMENT OR STOPPAGE, AND OBTAIN URINE SPECIMEN INDICATED.SKILLED NURSE TO INSTRUCT PATIENT / CAREGIVER IN INDWELLING URINARY CATHETER INCLUDING CARE OF ROCA CATHETER, SIGN AND SYMPTOMS OF COMPLICATIONS, PERINEAL CARE, TUBE AND BAG PLACEMENT. PERFORM OBSERVATION AND ASSESSMENT OF GENITOURINARY SYSTEM.] Future Scheduled Test SKILLED NU RSE FOR ADMINISTRATION OF BLADDER INSTILLATION/IRRIGATION WITH 60 CC PRN. [code = SKILLED NURSE FOR ADMINISTRATION OF BLADDER INSTILLATION/IRRIGATION WITH 60 CC PRN.] Future Scheduled Test SKILLED NU RSE TO OBSERVE AND ASSESS INTEGUMENTARY STATUS TO IDENTIFY CHANGES AND INTERVENE TO MINIMIZE COMPLICATIONS. SKILLED NURSE TO PROVIDE SKILLED TEACHING RELATED TO ALTERED SKIN INTEGRITY INCLUDING PATHOPHYSIOLOGY, NUTRITION, MEDICATION REGIMEN. SKILLED NURSE TO REPORT SIGNIFICANT CHANGES IN STATUS TO PHYSICIAN FOR EARLY INTERVENTION. [code = SKILLED NURSE TO OBSERVE AND ASSESS INTEGUMENTARY STATUS TO IDENTIFY CHANGES AND INTERVENE TO MINIMIZE COMPLICATIONS. SKILLED NURSE TO PROVIDE SKILLED TEACHING RELATED TO ALTERED SKIN INTEGRITY INCLUDING PATHOPHYSIOLOGY, NUTRITION, MEDICATION REGIMEN. SKILLED NURSE TO REPORT SIGNIFICANT CHANGES IN STATUS TO PHYSICIAN FOR EARLY INTERVENTION.] Future Scheduled Test SKILLED NU RSE TO INSTRUCT ON INFECTION CONTROL MEASURES [code = SKILLED NURSE TO INSTRUCT ON INFECTION CONTROL MEASURES] Future Scheduled Test SKILLED NU RSE TO PROVIDE INSTRUCTION IN ENERGY CONSERVATION TECHNIQUES DESIGNED TO MAXIMIZE PATIENT'S PRODUCTIVITY WITH FUNCTIONAL ACTIVITIES. [code = SKILLED NURSE TO PROVIDE INSTRUCTION IN ENERGY CONSERVATION TECHNIQUES DESIGNED TO MAXIMIZE PATIENT'S PRODUCTIVITY WITH FUNCTIONAL ACTIVITIES.] Future Scheduled Test SKILLED NU RSE TO PROVIDE INSTRUCT REGARDING INTERVENTION(S) TO PREVENT PRESSURE ULCERS. [code = SKILLED NURSE TO PROVIDE INSTRUCT REGARDING INTERVENTION(S) TO PREVENT PRESSURE ULCERS.] Future Scheduled Test SKILLED NU RSE TO PROVIDE AND INSTRUCT REGARDING FALL PREVENTION INTERVENTIONS. [code = SKILLED NURSE TO PROVIDE AND INSTRUCT REGARDING FALL PREVENTION INTERVENTIONS.] Future Scheduled Test SKILLED NU RSE TO MONITOR PLAN FOR CURRENT TREATMENT OF DEPRESSION SUCH EFFECTS OF MEDICATION AND/OR NEED FOR REFERRAL FOR OTHER TREATMENT. [code = SKILLED NURSE TO MONITOR PLAN FOR CURRENT TREATMENT OF DEPRESSION SUCH EFFECTS OF MEDICATION AND/OR NEED FOR REFERRAL FOR OTHER TREATMENT. ] Future Scheduled Test SKILLED NU RSE TO PROVIDE/INSTRUCT REGARDING INTERVENTION(S) TO MONITOR AND MITIGATE PAIN. [code = SKILLED NURSE TO PROVIDE/INSTRUCT REGARDING INTERVENTION(S) TO MONITOR AND MITIGATE PAIN.] Future Scheduled Test PHYSICAL T HERAPIST TO EVALUATE/ASSESS AND DEVELOP PHYSICAL THERAPY PLAN OF CARE TO BE SIGNED BY THE PHYSICIAN. [facility] MAY ACCEPT ORDERS FROM THE FOLLOWING PHYSICIANS AND THEIR ASSOCIATES: ALINE YUNG PHYSICAL THERAPY TO ESTABLISH/UPGRADE HOME EXERCISE PROGRAM AND PROVIDE THERAPEUTIC EXERCISES AND SOFT TISSUE/JOINT MOBILIZATION DESIGNED TO RESTORE FUNCTIONAL STRENGTH AND ROM. PHYSICAL THERAPY TO INSTRUCT IN SAFE TRANSFERS WITH APPROPRIATE BODY MECHANICS AND EQUIPMENT. PHYSICAL THERAPY TO PROVIDE TRAINING ON SAFE AND EFFECTIVE USE OF WHEELCHAIR. [code = PHYSICAL THERAPIST TO EVALUATE/ASSESS AND DEVELOP PHYSICAL THERAPY PLAN OF CARE TO BE SIGNED BY THE PHYSICIAN. HOME HEALTH AGENCY MAY ACCEPT ORDERS FROM THE FOLLOWING PHYSICIANS AND THEIR ASSOCIATES: ALINE YUNG PHYSICAL THERAPY TO ESTABLISH/UPGRADE HOME EXERCISE PROGRAM AND PROVIDE THERAPEUTIC EXERCISES AND SOFT TISSUE/JOINT MOBILIZATION DESIGNED TO RESTORE FUNCTIONAL STRENGTH AND ROM. PHYSICAL THERAPY TO INSTRUCT IN SAFE TRANSFERS WITH APPROPRIATE BODY MECHANICS AND EQUIPMENT. PHYSICAL THERAPY TO PROVIDE TRAINING ON SAFE AND EFFECTIVE USE OF WHEELCHAIR.] Future Scheduled Test HOME HEALT H AIDE SERVICE FOR ASSISTANCE WITH PERSONAL CARE, HYGIENE AND ACTIVITIES OF DAILY LIVING. [code = HOME HEALTH AIDE SERVICE FOR ASSISTANCE WITH PERSONAL CARE, HYGIENE AND ACTIVITIES OF DAILY LIVING.] Future Scheduled Test VENKATESH VENEGAS RN 08/13/2024 WARFARIN TAKE 3.75MG PO MON/THURS, TAKE 7.5MG PO ALL OTHER DAYS FOR INR RESULT OF 3.7 VIA FINGERSTICK, INR RECHECK DUE 08/20/24. [code = VENKATESH VENEGAS RN 08/13/2024 WARFARIN TAKE 3.75MG PO MON/THURS, TAKE 7.5MG PO ALL OTHER DAYS FOR INR RESULT OF 3.7 VIA FINGERSTICK, INR RECHECK DUE 08/20/24.] Encounters Start Date/Time End Date/Time Encounter Type Admission Type Attending [facility] Facility Care Department Encounter ID [id number] 00:00:00 2024-10-10 00:00:00 Unknown RECERTIFICATIO Tatiana HAJI, FLOYD CORTEZ , LOYD PAEZ, TOSHIA ADHIKARI, DANIELLA MORENO, FRANKIE HONEYCUTT, FRANK DELGADILLO, DEREJE EHRNANDEZ, CRYS ASHRAF, ALEJANDRO GLEZ [facility] [id number]
--- OUTSIDE RECORDS SUMMARY | 2024-08-15 17:31 | XMS_ITS ---
Author Organization [facility] Care Team Providers Care Care Management Specialist Name Role Phone Darci Worthington Unavailable Unavailable Catarina Tillman Unavailable Unavailable Kelsey Dubose Unavailable Unavailable Marco Antonio Douglas Unavailable Unavailable Allergies and adverse reactions Code CodeSystem Substance Reaction Severity StartDate Concern Status 043041169 SNOMED CT Penicillins Unknown 03/16/2023 activ e contrast dye Unknown 03/16/2023 active Care Team Name Role Address Phone Organization Dates Darci Worthington [address] [place], [address], [place] (Office): : [facility] 03/16/2023 - 04/15/2023 Catarina Tillman [address] [facility] [address], [place], [address], [facility] 03/16/2023 - 04/15/2023 Kelsey Dubose [address], [place], [address], [place] (Office): [facility] 03/16/2023 - 04/15/2023 Marco Antonio Hutchinson [place], [address], [facility] 03/16/2023 - 04/15/2023 Immunizations Immunization Status Vaccine Details Vaccine Code CodeSystem Date Notes Influenza completed Influenza, high-dose, split virus, quadrivalent, injectable, preservative free 197 CVX created date: 03/20/2023 administere d date: 06/02/2022 Influenza completed Influenza, high-dose, split virus, quadrivalent, injectable, preservative free 197 CVX created date: 03/20/2023 administere d date: 12/28/2020 Influenza completed Influenza, high-dose, split virus, quadrivalent, injectable, preservative free 197 CVX created date: 03/20/2023 administere d date: 01/27/2020 TB 2 Step Mantoux Skin Test completed tuberculin skin test; unspecified formulation Step 1 of Multi-step with next step required 98 CVX created date: 03/17/2023 consent date: 03/17/2023 administere d date: 03/17/2023 Prevnar 13 completed pneumococcal conjugate vaccine, 13 valent 133 CVX created date: 03/20/2023 administere d date: 11/22/2017 PPSV23 (Pneumococcal) Dose 1 completed pneumococcal polysaccharide vaccine, 23 valent 33 CVX created date: 03/20/2023 administere d date: 2006 PPSV 23 (Pneumococcal) Dose 2 completed pneumococcal polysaccharide vaccine, 23 valent 33 CVX created date: 03/20/2023 administere d date: 11/18/2010 Pfizer COVID Vaccine - Dose 1 completed SARS-COV-2 (COVID-19) vaccine, mRNA, spike protein, LNP, preservative free, 30 mcg/0.3mL dose 208 CVX created date: 03/20/2023 administere d date: 05/23/2020 Pfizer COVID Vaccine - Dose 2 completed SARS-COV-2 (COVID-19) vaccine, mRNA, spike protein, LNP, preservative free, 30 mcg/0.3mL dose 208 CVX created date: 03/20/2023 administere d date: 06/13/2020 Tetanus-Diptheria completed tetanus and diphtheria toxoids, adsorbed, preservative free, for adult use, Lf unspecified 196 CVX created date: 03/20/2023 administere d date: 02/12/2017 Tetanus-Diptheria completed tetanus and diphtheria toxoids, adsorbed, preservative free, for adult use, Lf unspecified 196 CVX created date: 03/20/2023 administere d date: 07/13/2010 Tetanus-Diptheria completed tetanus and diphtheria toxoids, adsorbed, preservative free, for adult use, Lf unspecified 196 CVX created date: 03/20/2023 administere d date: 07/27/1999 RSV Vaccine - Arexvy new Respiratory syncytial virus (RSV), vaccine, recombinant, protein subunit RSV prefusion F, adjuvant reconstituted, 0.5 mL, preservative free 303 CVX created date: 04/07/2023 consent date: 04/10/2023 Pfizer COVID Vaccine Fall 2022 cancelled SARS-COV-2 (COVID-19) vaccine, mRNA, spike protein, LNP, preservative free, william-sucrose, 30 mcg/0.3 mL dose 309 CVX created date: 04/07/2023 consent date: 04/07/2023 Mental Status Section Date Assessment Total Score Description 04/14/2023 BIMS 15 cognitively int act CAM 0 No delirium ind icated PHQ-9 00 03/22/2023 BIMS 15 cognitively int act PHQ-9 03 minimal depress ion Problems Problem # Description Date of onset Resolved Date Code CodeSystem Concern Status 1 ACUTE UPPER RESPIRATORY INFECTION, UNSPECIFIED 03/17/[address] active 2 DEPRESSION, UNSPECIFIED 03/16/[address] active 3 DIFFICULTY IN WALKING, NOT ELSEWHERE CLASSIFIED 03/16/[address] active 4 ESSENTIAL (PRIMARY) HYPERTENSION 03/16/[address] active 5 FLACCID NEUROPATHIC BLADDER, NOT ELSEWHERE CLASSIFIED 03/16/[address] active 6 HEMORRHAGIC DISORDER DUE TO EXTRINSIC CIRCULATING ANTICOAGULANTS 03/16/[address] active 7 HYPOTHYROIDISM, UNSPECIFIED 03/16/[address] active 8 INSOMNIA, UNSPECIFIED 03/16/[address] active 9 MORBID (SEVERE) OBESITY DUE TO EXCESS CALORIES 03/16/[address] active 10 MUSCLE WEAKNESS (GENERALIZED) 03/16/[address] active 11 NEED FOR ASSISTANCE WITH PERSONAL CARE 03/16/[id number] active 12 OTHER REDUCED MOBILITY 03/16/[address] active 13 OTHER SPECIFIED ANXIETY DISORDERS 03/16/[address] active 14 PARAPLEGIA, UNSPECIFIED 03/16/[address] active 15 PERSONAL HISTORY OF OTHER (HEALED) PHYSICAL INJURY AND TRAUMA 03/16/[address] active 16 PNEUMONIA, UNSPECIFIED ORGANISM 03/16/[address] active 17 URINARY TRACT INFECTION, SITE NOT SPECIFIED 03/16/[address] active Reason for Referral No Reasons for Referral Entered Social History Social History Observation Description Start Date End Date Code Code System Current Smoking Status Tobacco smoking consumption unknown 819351304 SNOMED CT Sex Assigned At Female 1940 91756-0 [facility] Gender Identity Vital Signs Code Code System Vitals Name Values and Units Timing Information 74874-3 [facility] Pain Level Value=0.0 04/14/2023 9279-1 [facility] Respiratory Rate Value=16.0 Units=/m in 04/14/2023 8462-4 [facility] Blood Pressure-Diastolic Value=74 Un its=mmHg 04/14/2023 8480-6 [facility] Blood Pressure-Systolic Iggng=825 Un its=mmHg 04/14/2023 8310-5 [facility] Body Temperature Value=97.6 Units= F 04/14/2023 8867-4 [facility] Heart rate Value=72.0 Units=/min 03/2024 82939-2 [facility] O2 % BldC Oximetry Value=97.0 Units= % 04/14/2023 04624-0 [facility] Weight Ncrdi=797.2 Units=Lbs 01/2024 8302-2 [facility] Height Value=67.0 Units=Inches 03/17/2023
[2024-08-15] MEDS: METOPROLOL SUCCINATE (XL) 100 MG TAB PO (18:46)
[2024-08-15] MEDS: WARFARIN 3 MG TABLET PO (18:47)
[2024-08-15] MEDS: SIMVASTATIN 40 MG TABLET PO (18:47)
[2024-08-15] MEDS: FUROSEMIDE 10 MG/ML inj 40 MG IVP (18:48)
--- NOTE | 2024-08-15 19:53 | PC.NURSE ---
End of shift report: VSS. Afebrile. Rates pain a 3/10, denies pain meds at this time. Pt is on 2 L O2 via NC to maintain sats above 90%. Pt has a R butt dried/scabbed chronic wound that is open to air. Pt has a chronic indwelling catheter that is patent and intact. ordered a alford change, pt requests to have it changed later this evening, pt would like to wait after having a BM. Tolerating renal diet. Use of ezstand/wheelchair at home, pt has not been out of bed at this time, call light within reach.
[2024-08-15] MEDS: GABAPENTIN 600 MG TABLET 1200 MG PO (22:20)
[2024-08-15] MEDS: SODIUM CHLORIDE 0.9 % (FLUSH) 10 ML SYRINGE 5 ML IVF (22:21)
--- NOTE | 2024-08-15 22:48 | PM.IMHP1 ---
Assessment and Plan Assessment and plan (1) Urinary tract infection: Problem comment: Patient is having dysuria despite having a Elliott catheter. She is voiding around her catheter. Will replace the catheter and initiate antibiotics consistent with her previous history. Await new cultures. Status: Acute (2) Pulmonary edema: Problem comment: Appears to be having a heart failure exacerbation with worsening dyspnea and orthopnea. Acute on chronic with preserved ejection fraction. Check echo. Status: Acute (3) Obstructive sleep apnea: Problem comment: Patient reports that she has never been told that this is a possible problem though notes indicate otherwise. also notes that this concern has not been raised before. he denies that he hears her snoring though he sleeps in a different room. She is sleepy all the time during the day. I recommend outpatient evaluation for sleep apnea. 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 Patient is basically sitting in a wheelchair all day long and lying on her back in bed all night long. Not getting properly reposition and offloading her sacral ulcer. Status: Acute (5) Restrictive lung disease: Problem comment: pulm consult due to obesity 04/2024 Status: Acute (6) Anticoagulated on Coumadin: Status: Acute (7) Body mass index [BMI] 45.0-49.9, adult: Status: Acute (8) Cauda equina syndrome: Problem comment: Patient reports this is secondary to lumbar spine surgery complication. She is quite weak in her lower extremities. Status: Acute (9) Atonic neurogenic bladder: Problem comment: Continue Elliott catheter. Status: Acute (10) termite control representative (current) use of anticoagulants: Problem comment: Continue warfarin for PE DVT prophylaxis Status: Acute (11) Indwelling urinary catheter present: Problem comment: Patient and her worse surprised when I told them that her indwelling Elliott would likely cause her chronic bacterial colonization of her urinary tract and that she would likely always have a positive urine culture and that we would only treat when she was symptomatic. Status: Acute Plan Patient is admitted the hospital for evaluation and management of hypoxic respiratory failure secondary to heart failure, urinary tract infection secondary to indwelling Elliott catheter and management of other chronic medical problems. I will initiate IV furosemide and add in oral spironolactone. Patient would be a good candidate for an SGLT 2 inhibitor medication except for her recurrent urinary infections. Reinforced need for medical monitoring of heart failure and compliance monitoring. Outpatient assessment for sleep apnea. Treat symptomatic urinary tract infection. Total Time Spent Total Time Spent: Total time spent today is 95 minutes in coordination of care, review of outside records, discussion with patient and other providers ongoing management of multiple issues outlined above. Hospitalist- H&P: HPI History of Present Illness Date Seen: 08/15/24 Chief complaint: UTI Narrative: Debora Vivar is a 84 year old female with functional paraplegia/cauda equinus syndrome, heart failure, obesity, history of PE and indwelling Elliott catheter is admitted to the hospital with dysuria with burning when she involuntarily voids around the catheter, foul-smelling urine, worsening pain in her sacral decubitus ulcer, worsening shortness of breath and nocturnal dyspnea and orthopnea. Patient had complications of lumbar surgery causing her to become wheelchair bound. She is functionally paraplegic with a neurogenic bladder requiring a Elliott catheter. She has been getting recurrent urinary tract infections. She has a home health nurse who apparently got a culture a couple days ago. According to the emergency room doctor this grew Klebsiella and Pseudomonas which were sensitive to cefepime. I am unable to find those records regarding her previous urinary testing and culture. She has not had a fever. She has a history of congestive heart failure. I believe her last echocardiogram was when she was hospitalized at [facility] in March of 2023. At that time she had preserved ejection fraction around 55% with some small area of mild apical hypokinesis, moderate concentric LVH and moderate mitral annual calcification with [id number] mitral stenosis. She also had a Lexiscan which showed no inducible ischemia at that time. She reports longstanding symptoms of orthopnea, nocturnal dyspnea. She is unable to assess lie down flat in when she sleeps at night. This could also be related to her morbid obesity and her probable sleep apnea. In the emergency department her chest x-ray was seen did show evidence of heart failure. She reports she is compliant with her heart failure medications including furosemide 40 mg twice daily. For years she has had on and off problems with a sacral area decubitus ulcer. Patient is quite immobile. She is wheelchair bound. Her is her caregiver and uses an EZ stand to transfer her bed to chair in the morning and at night. During the day she sits in the chair continuously and does not get repositioned. She reports to sacral area ulceration right now is more painful than usual. She is chronically anticoagulated with warfarin for history of PE/DVT. [facility] Medical History (Updated 08/15/24 @ 23:16 by Monty Cole MD) Obstructive sleep apnea ?G47.33 - Obstructive sleep apnea (adult) (pediatric) (ICD-10) Urinary tract infection, site not specified (03/16/23) ?N39.0 - Urinary tract infection, site not specified (ICD-10) Unspecified macular degeneration (09/03/20) ?H35.30 - Unspecified macular degeneration (ICD-10) Pulmonary embolism (01/14/20) ?I26.99 - Other pulmonary embolism without acute cor pulmonale (ICD-10) Obstructive sleep apnea (adult) (pediatric) (09/03/20) ?G47.33 - Obstructive sleep apnea (adult) (pediatric) (ICD-10) Low vitamin D level (09/18/20) ?R79.89 - Other specified abnormal findings of blood chemistry (ICD-10) [facility] (current) use of anticoagulants (09/03/20) ?Z79.01 - termite control representative (current) use of anticoagulants (ICD-10) Indwelling urinary catheter present (09/18/20) ?Z96.0 - Presence of urogenital implants (ICD-10) Hypothyroidism (09/07/02) ?E03.9 - Hypothyroidism, unspecified (ICD-10) Hyperlipidemia (04/08/11) ?E78.5 - Hyperlipidemia, unspecified (ICD-10) History of deep venous thrombosis (03/06/17) ?Z86.718 - Personal history of other venous thrombosis and embolism (ICD-10) Flaccid neuropathic bladder, not elsewhere classified (03/16/23) ?N31.2 - Flaccid neuropathic bladder, not elsewhere classified (ICD-10) Depression, unspecified (03/16/23) ?F32.A - Depression, unspecified (ICD-10) Depression (01/03/11) ?F32.A - Depression, unspecified (ICD-10) Deep venous thrombosis (01/14/20) ?I82.409 - Acute embolism and thrombosis of unspecified deep veins of unspecified lower extremity (ICD-10) Cough (06/18/23) ?R05.9 - Cough, unspecified (ICD-10) Chronic pain (09/18/20) ?G89.29 - Other chronic pain (ICD-10) Cauda equina syndrome (11/29/10) ?G83.4 - Cauda equina syndrome (ICD-10) Atrial fibrillation with RVR (08/22/23) ?I48.91 - Unspecified atrial fibrillation (ICD-10) Atonic neurogenic bladder (12/27/17) ?N31.2 - Flaccid neuropathic bladder, not elsewhere classified (ICD-10) Anxiety (01/14/20) ?F41.9 - Anxiety disorder, unspecified (ICD-10) Anticoagulated on Coumadin (03/06/17) ?Z79.01 - [facility] (current) use of anticoagulants (ICD-10) Vitiligo (06/18/04) ?L80 - Vitiligo (ICD-10) Vitamin D deficiency (01/14/20) ?E55.9 - Vitamin D deficiency, unspecified (ICD-10) Spinal stenosis, cervical region (09/03/20) ?M48.02 - Spinal stenosis, cervical region (ICD-10) Radiculopathy, lumbosacral region (10/27/20) ?M54.17 - Radiculopathy, lumbosacral region (ICD-10) Radiculitis (01/14/20) ?M54.10 - Radiculopathy, site unspecified (ICD-10) Pyelonephritis, acute (01/24/23) ?N10 - Acute pyelonephritis (ICD-10) PVD (peripheral vascular disease) (09/18/20) ?I73.9 - Peripheral vascular disease, unspecified (ICD-10) Pulmonary embolism and infarction (09/07/02) ?I26.99 - Other pulmonary embolism without acute cor pulmonale (ICD-10) Physical deconditioning (03/06/17) ?R53.81 - Other malaise (ICD-10) Personal history of other venous thrombosis and embolism (09/03/20) ?Z86.718 - Personal history of other venous thrombosis and embolism (ICD-10) Peripheral vascular disease, unspecified (10/27/20) ?I73.9 - Peripheral vascular disease, unspecified (ICD-10) Paroxysmal atrial fibrillation (06/19/23) ?I48.0 - Paroxysmal atrial fibrillation (ICD-10) Insomnia (10/20/20) ?G47.00 - Insomnia, unspecified (ICD-10) Hypertensive heart disease with heart failure (06/19/23) ?I11.0 - Hypertensive heart disease with heart failure (ICD-10) Essential hypertension (09/07/02) ?I10 - Essential (primary) hypertension (ICD-10) Dyslipidemia (12/08/10) ?E78.5 - Hyperlipidemia, unspecified (ICD-10) Depression with anxiety ?F41.8 - Other specified anxiety disorders (ICD-10) Closed fracture of distal end of right femur (10/21/20) ?S72.401A - Unspecified fracture of lower end of right femur, initial encounter for closed fracture (ICD-10) Cervical stenosis of spine (08/28/20) ?M48.02 - Spinal stenosis, cervical region (ICD-10) Body mass index [BMI] 45.0-49.9, adult (10/27/20) ?Z68.42 - Body mass index [BMI] 45.0-49.9, adult (ICD-10) Atonic bladder (03/03/23) ?N31.2 - Flaccid neuropathic bladder, not elsewhere classified (ICD-10) Anxiety disorder, unspecified (09/03/20) ?F41.9 - Anxiety disorder, unspecified (ICD-10) Age-related macular degeneration, wet, right eye (08/07/15) ?H35.3210 - Exudative age-related macular degeneration, right eye, stage unspecified (ICD-10) Decubital ulcer ?L89.90 - Pressure ulcer of unspecified site, unspecified stage (ICD-10) Restrictive lung disease ?J98.4 - Other disorders of lung (ICD-10) Cough variant asthma ?J45.991 - Cough variant asthma (ICD-10) Noncompliance with medications ?Z91.148 - Patient's other noncompliance with medication regimen for other reason (ICD-10) Chronic cough ?R05.3 - Chronic cough (ICD-10) Atrial fibrillation with RVR ?I48.91 - Unspecified atrial fibrillation (ICD-10) UTI (urinary tract infection) ?N39.0 - Urinary tract infection, site not specified (ICD-10) Macular degeneration ?H35.30 - Unspecified macular degeneration (ICD-10) Iron deficiency anemia ?D50.9 - Iron deficiency anemia, unspecified (ICD-10) MIN (obstructive sleep apnea) ?G47.33 - Obstructive sleep apnea (adult) (pediatric) (ICD-10) Anemia ?D64.9 - Anemia, unspecified (ICD-10) History of sepsis ?Z86.19 - Personal history of other infectious and parasitic diseases (ICD-10) Acute kidney injury ?N17.9 - Acute kidney failure, unspecified (ICD-10) Acute hypoxic respiratory failure ?J96.01 - Acute respiratory failure with hypoxia (ICD-10) Sepsis ?A41.9 - Sepsis, unspecified organism (ICD-10) (HFpEF) heart failure with preserved ejection fraction ?I50.30 - Unspecified diastolic (congestive) heart failure (ICD-10) Limited mobility ?Z74.09 - Other reduced mobility (ICD-10) Bed sore, stage 1 ?L89.91 - Pressure ulcer of unspecified site, stage 1 (ICD-10) Cough ?R05.9 - Cough, unspecified (ICD-10) PAC (premature atrial contraction) ?I49.1 - Atrial premature depolarization (ICD-10) Pyelonephritis ?N12 - Tubulo-interstitial nephritis, not specified as acute or chronic (ICD-10) Seasonal allergies ?J30.2 - Other seasonal allergic rhinitis (ICD-10) Irregular heart beat ?I49.9 - Cardiac arrhythmia, unspecified (ICD-10) History of deep venous thrombosis ?Z86.718 - Personal history of other venous thrombosis and embolism (ICD-10) History of bone density study (06/24/11) ?Z92.89 - Personal history of other medical treatment (ICD-10) Fracture of right femur ?S72.91XA - Unspecified fracture of right femur, initial encounter for closed fracture (ICD-10) Recurrent pulmonary embolism ?I26.99 - Other pulmonary embolism without acute cor pulmonale (ICD-10) Chronic anticoagulation ?Z79.01 - termite control representative (current) use of anticoagulants (ICD-10) Central stenosis of spinal canal ?M48.00 - Spinal stenosis, site unspecified (ICD-10) Leg edema ?R60.0 - Localized edema (ICD-10) Depression ?F32.A - Depression, unspecified (ICD-10) Surgical History (Updated 08/15/24 @ 23:07 by Monty Cole MD) History of appendectomy (11/02/10) ?Z90.49 - Acquired absence of other specified parts of digestive tract (ICD-10) 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) ?Z94.5 - Skin transplant status (ICD-10) Status post hip replacement (11/02/10) ?Z96.649 - Presence of unspecified artificial hip joint (ICD-10) S/P tonsillectomy and adenoidectomy (11/02/10) ?Z90.89 - Acquired absence of other organs (ICD-10) S/P laminectomy with spinal fusion (11/29/10) ?Z98.1 - Arthrodesis status (ICD-10) S/P bunionectomy (11/02/10) ?Z98.890 - Other specified postprocedural states (ICD-10) S/P bilateral breast reduction (11/02/10) ?Z98.890 - Other specified postprocedural states (ICD-10) Presence of right artificial shoulder joint (06/19/23) ?Z96.611 - Presence of right artificial shoulder joint (ICD-10) Presence of right artificial hip joint (10/27/20) ?Z96.641 - Presence of right artificial hip joint (ICD-10) Presence of left artificial shoulder joint (06/19/23) ?Z96.612 - Presence of left artificial shoulder joint (ICD-10) Presence of artificial hip joint, bilateral (06/19/23) ?Z96.643 - Presence of artificial hip joint, bilateral (ICD-10) History 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 - Skin transplant status (ICD-10) History of total abdominal hysterectomy ?Z90.710 - Acquired absence of both cervix and uterus (ICD-10) History of left shoulder replacement ?Z96.612 - Presence of left artificial shoulder joint (ICD-10) History of fusion of lumbar spine ?Z98.1 - Arthrodesis status (ICD-10) History of colonoscopy (06/24/11) ?Z98.890 - Other specified postprocedural states (ICD-10) History of appendectomy (04/08/11) ?Z90.49 - Acquired absence of other specified parts of digestive tract (ICD-10) Social History (Updated 08/15/24 @ 23:08 by Monty Cole MD) Narrative: She lives with her . He is her full-time caregiver. He uses a EZ stand to transfer her bed to chair in the morning and chair to bed in the evening. She has a bedside commode and uses an EZ stand for transfer. Home health nurse comes in a couple times a week primarily for hygiene purposes. Code status is DNR. Healthcare power of employment law attorney is her . She does not smoke. She does not drink alcohol. What is your current living situation?: I presently have a place to live Problems where you live: no known problems Problems where you live details: n/a In the past 12 months, utilities in danger of being shut off: no In past 12 months, lack of transportation kept you from medical appts, meetings, work, or getting things needed for daily living: no In the past 12 mos, have been you worried that your food would run out before you had money to buy more?: never true In the past 12 mos, the food you bought just didn't last and you didn't have money to buy more?: never true Highest level of school completed/degree received: Associate degree: occupational, technical, vocational program Smoking Status: Never smoker Second hand tobacco smoke exposure: No How often do you have a drink containing alcohol: never AUDIT-C Alcohol total score: 0 Non-prescribed substance use: denies use Caffeine: Yes (coffee) How often does anyone, including family, friends and others, physically hurt you: never How often does anyone, including family, friends and others, insult or talk down to you: never How often does anyone, including family, friends and others, threaten you with harm: never How often does anyone, including family, friends and others, scream or curse at you: never service: No Meds Home Medications and Allergies Home Medications ?Medication ?Instructions ?Recorded ?Confirmed ?Type acetaminophen 500 mg capsule 1,000 mg PO QDAY 09/27/22 08/15/24 History cholecalciferol (vitamin D3) 125 125 mcg PO QDAY 09/27/22 08/15/24 History mcg (5,000 unit) tablet warfarin 6 mg tablet 6 mg PO 4XW #90 tabs 05/16/23 08/15/24 Rx metoprolol succinate 100 mg 100 mg PO QDAY #90 tabs 04/16/24 08/15/24 Rx tablet,extended release 24 hr simvastatin 40 mg tablet 40 mg PO QPM #90 tabs 04/16/24 08/15/24 Rx levothyroxine 150 mcg tablet 150 mcg PO DAILY #90 tabs 04/24/24 08/15/24 Rx nebulizer accessories #1 ea 05/07/24 07/04/24 Rx nebulizers #1 ea 05/07/24 07/04/24 Rx warfarin 5 mg tablet 5 mg PO QWEEK #30 tabs 07/01/24 08/15/24 Rx albuterol sulfate 90 mcg/actuation 2 puff inhalation Q4-6H PRN 07/04/24 08/15/24 Rx aerosol inhaler (Ventolin HFA) shortness of breath or wheezing #8.5 grams bupropion HCl 150 mg 24 hr tablet, 150 mg PO QAM #90 tabs 07/04/24 08/15/24 Rx extended release furosemide 40 mg tablet 40 mg PO BID #180 tabs 07/04/24 08/15/24 Rx gabapentin 600 mg tablet 1,200 mg (2 x 600 mg) PO TID #540 07/04/24 08/15/24 Rx tabs warfarin 3.75 08/15/24 History warfarin 7.5 mg tablet 7.5 mg PO 5XW 08/15/24 08/15/24 History Allergies Allergy/AdvReac Type Severity Reaction Status Date / Time penicillamine Allergy Unknown Verified 07/04/24 13:14 Exam Narrative: Exam Narrative: She is alert and appears in no obvious distress. Breathing is unlabored on supplemental oxygen. Oropharynx with a very small airway. I can only see the very front part of the hard palate and tongue when she opens her mouth. Neck is supple without mass or adenopathy. Respirations are clear to auscultation. No wheezing rales or rhonchi. Cardiovascular: S1, S2, regular rate and rhythm. No murmur gallop or rub. Abdomen: Bowel sounds active. Abdomen is soft without tenderness or mass. Right upper quadrant has an area of skin grafting with a small shallow ulcer present in that area. Otherwise well healed. External genitalia normal with draining Elliott catheter. No significant skin breakdown. On her presacral skin she has a fairly large area of erythema with small superficial ulcerations. No marked drainage or tenderness. Const: Vital Signs, click to edit/add: Vital Signs - 24 hr 08/15/24 09:59 08/15/24 10:00 08/15/24 10:06 Temperature 97.2 F L Pulse Rate 79 81 Pulse Rate [Pulse Oximeter] 87 Respiratory Rate 22 Blood Pressure 157/95 H Blood Pressure [Le ft Arm] Blood Pressure [Ri ght Forearm] 157/95 H Pulse Oximetry 95 89 88 Oxygen Delivery Me thod Room Air Oxygen Flow Rate 08/15/24 10:15 08/15/24 10:30 08/15/24 11:06 Temperature Pulse Rate 87 80 71 Pulse Rate [Pulse Oximeter] Respiratory Rate Blood Pressure Blood Pressure [Le ft Arm] Blood Pressure [Ri ght Forearm] Pulse Oximetry 95 96 91 Oxygen Delivery Me thod Oxygen Flow Rate 08/15/24 11:15 08/15/24 11:30 08/15/24 11:48 Temperature Pulse Rate 72 70 74 Pulse Rate [Pulse Oximeter] Respiratory Rate Blood Pressure Blood Pressure [Le ft Arm] Blood Pressure [Ri ght Forearm] Pulse Oximetry 93 93 94 Oxygen Delivery Me thod Oxygen Flow Rate 08/15/24 12:34 08/15/24 12:45 08/15/24 13:00 Temperature Pulse Rate 75 70 68 Pulse Rate [Pulse Oximeter] Respiratory Rate Blood Pressure Blood Pressure [Le ft Arm] Blood Pressure [Ri ght Forearm] Pulse Oximetry 93 94 94 Oxygen Delivery Me thod Oxygen Flow Rate 08/15/24 13:15 08/15/24 14:15 08/15/24 14:27 Temperature Pulse Rate 76 Pulse Rate [Pulse Oximeter] Respiratory Rate 18 Blood Pressure 128/59 L Blood Pressure [Le ft Arm] Blood Pressure [Ri ght Forearm] 138/80 Pulse Oximetry 95 Oxygen Delivery Me thod Oxygen Flow Rate 08/15/24 14:39 08/15/24 15:05 08/15/24 15:30 Temperature 98.2 F Pulse Rate 75 Pulse Rate [Pulse Oximeter] 72 Respiratory Rate 20 18 Blood Pressure Blood Pressure [Le ft Arm] 114/69 Blood Pressure [Ri ght Forearm] Pulse Oximetry 92 93 96 Oxygen Delivery Me thod Nasal Cannula OxyMask Nasal Cannula Oxygen Flow Rate 2 3 2 08/15/24 17:23 08/15/24 19:00 08/15/24 19:00 Temperature 98.0 F Pulse Rate 76 Pulse Rate [Pulse Oximeter] 76 Respiratory Rate 18 18 Blood Pressure Blood Pressure [Le ft Arm] 159/85 H Blood Pressure [Ri ght Forearm] Pulse Oximetry 96 93 Oxygen Delivery Me thod Nasal Cannula Room Air Oxygen Flow Rate 2 2 Documenting provider has reviewed patient's vital signs: yes Hospitalist - H&P: Result Labs Labs: Short CBC 08/15/24 Range/Units 10:27 WBC 7.76 (4.50-11.00) K/uL Hgb 12.9 (12.0-16.0) gm/dL Hct 42.8 (33.0-51.0) % Plt Count 210 (140-440) K/uL BMP 08/15/24 10:27 Sodium 143 Potassium 4.0 Chloride 104 Carbon Dioxide 33 H BUN 27 Creatinine 0.9 Glucose 99 Calcium 9.1 Liver Function 08/15/24 Range/Units 10:27 Total Bilirubin 0.6 (0.1-1.5) mg/dL AST 21 (12-35) U/L ALT 12 (4-35) U/L Alkaline Phosphatase 108 (40-150) U/L Albumin 3.9 (3.3-5.0) g/dL Urine 08/15/24 Range/Units 11:05 Urine Color Yellow (Yellow) Urine Appearance Clear (Clear) Urine pH 7.0 (5.0-8.5) Ur Specific Clifford 1.010 (1.000-1.030) Urine Protein Negative (Negative) Urine Glucose (UA) Negative (Negative) Imaging Chest x-ray: Radiologist's impression: INDICATION: Shortness of breath, question worsening heart failure COMPARISON: 10/19/2020 TECHNIQUE: PA and lateral 2 view chest. FINDINGS: Elevated anterior right diaphragm. Lung volumes are good. No focal consolidation. Moderate pulmonary edema. No pleural effusion. No pneumothorax. No pneumomediastinum. Cardiomegaly. Atherosclerosis. Bones: Bilateral shoulder arthroplasties. Lower cervical ACDF. IMPRESSION: Moderate pulmonary edema. No pleural effusion. Cardiomegaly.
[2024-08-16] VITALS (7 sets, daily range): BP systolic 134–184; BP diastolic 72–91; PULSE 64–80; RESP 18–24; TEMP 36.5–36.7; O2SAT 92–98
[2024-08-16 06:47] LABS: HCO3 VBG 33 mmol/L (21-28); PCO2 VBG 56 mmHG (40-50); pH VBG 7.377 (7.32-7.43)
[2024-08-16] MEDS: LEVOTHYROXINE 75 MCG TABLET 150 MCG PO (06:53)
[2024-08-16 07:05] LABS: INR 3.15 (0.91-1.10); Prothrombin Time 33.6 Seconds
[2024-08-16 07:19] LABS: Chloride* 104 mmol/L (96-114); Potassium* 3.7 mmol/L (3.6-5.1); Sodium* 143 mmol/L (135-149)
[2024-08-16 07:22] LABS: Anion Gap 6 mEq/L (7-15); Blood Urea Nitrogen* 25 mg/dL (7-30); Calcium* 8.6 mg/dL (8.4-10.6); Carbon Dioxide* 33 mmol/L (20-32); Creatinine* 0.8 mg/dL (0.5-1.5); Est. Creatinine Clearance* 41.45; Estimated Glomerular Filt Rate 73 ml/min; Glucose* 94 mg/dL (60-115)
--- NOTE | 2024-08-16 07:31 | PC.NURSE ---
Pt alert and oriented with some difficulty understanding concepts. Pt has calloused wound to left and right buttock, right buttock has an open area. Cleaned, dried and sacral mepilex placed over top. Labia has lesion from alford catheter, cleaned and left open to air. (Kelsey) notified. Pt repositioned q2-3h. Pt stated pain in feet bilaterally, stated improvement with elevation. Pt on 2L nasal canula, sats above 95%. Crackles noted bilaterally. Pt up via ez stand, 2a. Alford catheter replaced, patent and draining. Pt in bed, appears to be resting call light within reach.?
[2024-08-16] MEDS: FUROSEMIDE 40 MG TABLET PO ×2 (08:16→16:39)
[2024-08-16] MEDS: ACETAMINOPHEN 500 MG TABLET 1000 MG PO (09:10)
[2024-08-16] MEDS: buPROPion XL 150 MG TABLET PO (09:10)
[2024-08-16] MEDS: SODIUM CHLORIDE 0.9 % (FLUSH) 10 ML SYRINGE 5 ML IVF ×2 (09:11→20:52)
[2024-08-16] MEDS: SPIRONOLACTONE 25 MG TABLET PO (09:11)
[2024-08-16] MEDS: GABAPENTIN 600 MG TABLET 1200 MG PO ×3 (09:11→20:48)
[2024-08-16] MEDS: METOPROLOL SUCCINATE (XL) 100 MG TAB PO (09:11)
[2024-08-16] MEDS: PERFLUTREN LIPID MICROSPHERES 2 ML VIAL IVP (10:39)
[2024-08-16] MEDS: CEFEPIME HCL 1 GM in 0.9 % SODIUM CHLORIDE Mini-bag 100 ML IVPB (10:54)
--- NOTE | 2024-08-16 16:12 | PM.IMPN1 ---
Assessment and Plan Assessment and plan (1) Urinary tract infection: Problem comment: Patient is having dysuria despite having a Elliott catheter. She is voiding around her catheter. Will replace the catheter and initiate antibiotics consistent with her previous history. Continue cefepime, pending urine cultures, currently growing Gram-negative rods Status: Acute (2) Atonic neurogenic bladder: Problem comment: Continue Elliott catheter. 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 Status: Acute (4) Pulmonary edema: Problem comment: Appears to be having a heart failure exacerbation with worsening dyspnea and orthopnea. Acute on chronic with preserved ejection fraction. CXR shows moderate pulmonary edema, no pleural effusion, cardiomegaly noted Continue IV diuresis, monitoring I's and O's Echocardiogram 08/16/2024 Final Impressions: 1. Technically limited exam. 2. LVEF 60-65%. Moderate asymmetric LVH. 3. Tiny apical akinesis. 4. Mild TR. 5. No LV thrombus [contrast study]. 6. Mild degenerative MS/MAC. MG 3 mmHg, HR 73 bpm. 7. IVC not well seen. 8. Mild GARRET. Status: Acute (5) Obstructive sleep apnea: Problem comment: Patient reports that she has never been told that this is a possible problem though notes indicate otherwise. also notes that this concern has not been raised before. he denies that he hears her snoring though he sleeps in a different room. She is sleepy all the time during the day. I recommend outpatient evaluation for sleep apnea. 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 Patient is basically sitting in a wheelchair all day long and lying on her back in bed all night long. Not getting properly reposition and offloading her sacral ulcer. Recommend outpatient wound clinic consult Outpatient chair assessment Status: Acute (7) Restrictive lung disease: Problem comment: Pulm consult due to obesity 04/2024. Thought to be cough variant asthma with postnasal drip contributing. Recommended to trial inhaler therapy, Flovent twice daily Status: Acute (8) Body mass index [BMI] 45.0-49.9, adult: Problem comment: BMI 43.7 Status: Acute (9) Cauda equina syndrome: Problem comment: Patient reports this is secondary to lumbar spine surgery complication. She is quite weak in her lower extremities. Status: Acute (10) senior care (current) use of anticoagulants: Problem comment: Continue warfarin for PE DVT prophylaxis, pharmacy to manage Status: Acute Plan Possible discharge Monday pending ongoing clinical improvement Total Time Spent Total Time Spent: Today I spent 75 minutes seeing the patient, reviewing Expanse and EPIC notes/diagnostics, discussing the care plan with our care time that includes social work, PT/OT, pharmacy, RT, prison and documenting my impressions and plan in the medical record. Subjective Date Seen: 08/16/24 Interval history: Patient is seen lying in bed this morning. Feeling somewhat better. Denies headache or dizziness. Denies chest pain. Remains afebrile. No nausea or vomiting. Awaiting echo. Urine culture pending. Saturating in the 90s on room air. Exam Narrative: Exam Narrative: PHYSICAL EXAM General: Pleasant, conversant, NAD HEENT: Normocephalic, atraumatic, sclera white, EOMI, oral mucosa moist Cardiovascular: RRR, S1S2. Pulmonary: Mildly diminished, no expiratory wheezes. No dyspnea on room air Neurological: Alert, answering questions appropriately, cranial nerves intact, no focal findings Extremities: No gross joint deformity or swelling. Skin: Warm, dry. Const: Vital Signs, click to edit/add: Vital Signs - 24 hr 08/15/24 17:23 08/15/24 19:00 08/15/24 19:00 Temperature 98.0 F Pulse Rate 76 Pulse Rate [Pulse Oximeter] 76 Respiratory Rate 18 18 Blood Pressure [Le ft Arm] 159/85 H Pulse Oximetry 96 93 Oxygen Delivery Me thod Nasal Cannula Room Air Oxygen Flow Rate 2 2 08/15/24 23:00 08/15/24 23:00 08/15/24 23:00 Temperature Pulse Rate 74 Pulse Rate [Pulse Oximeter] 76 Respiratory Rate 18 Blood Pressure [Le ft Arm] Pulse Oximetry 95 Oxygen Delivery Me thod Nasal Cannula Oxygen Flow Rate 2 08/15/24 23:00 08/16/24 03:00 08/16/24 07:00 Temperature 97.4 F L 97.9 F 98.0 F Pulse Rate Pulse Rate [Pulse Oximeter] 68 64 71 Respiratory Rate 18 18 18 Blood Pressure [Le ft Arm] 169/89 H 160/81 H 142/91 H Pulse Oximetry 100 97 98 Oxygen Delivery Me thod Nasal Cannula Nasal Cannula Nasal Cannula Oxygen Flow Rate 2 2 2 08/16/24 07:00 08/16/24 07:00 08/16/24 07:00 Temperature Pulse Rate 73 Pulse Rate [Pulse Oximeter] 71 Respiratory Rate 18 18 Blood Pressure [Le ft Arm] Pulse Oximetry 98 Oxygen Delivery Me thod Room Air Oxygen Flow Rate 08/16/24 11:00 08/16/24 15:00 08/16/24 15:00 Temperature 97.9 F 98.1 F Pulse Rate 68 Pulse Rate [Pulse Oximeter] 69 71 Respiratory Rate 18 18 Blood Pressure [Le ft Arm] 139/77 134/72 Pulse Oximetry 93 92 Oxygen Delivery Me thod Room Air Room Air Oxygen Flow Rate 08/16/24 15:00 08/16/24 15:00 Temperature Pulse Rate Pulse Rate [Pulse Oximeter] 71 Respiratory Rate 18 18 Blood Pressure [Le ft Arm] Pulse Oximetry 92 Oxygen Delivery Me thod Room Air Oxygen Flow Rate Labs Labs: Laboratory Results - last 24 hr 08/16/24 06:27 INR 3.15 H VBG pH 7.377 VBG pCO2 56 H VBG pO2 52.0 H VBG HCO3 33 H Sodium 143 Potassium 3.7 Chloride 104 Carbon Dioxide 33 H Anion Gap 6 L BUN 25 Creatinine 0.8 Estimated Creat Clear 41.45 Estimated GFR 73 Glucose 94 Calcium 8.6
[2024-08-16] MEDS: WARFARIN 3 MG TABLET PO (17:38)
[2024-08-16] MEDS: SIMVASTATIN 40 MG TABLET PO (17:38)
--- NOTE | 2024-08-16 19:18 | PC.NURSE ---
End of Shift ([id number]): Patient pleasant and cooperative, A&O. VSS, afebrile. SpO2 maintained above 90% on RA. Patient reports pain in her buttocks this shift, declined PRN medication, managed with repositioning. Turned and repositioned this shift. Wound on buttocks covered with mepilex which is C/D/I. Tolerating renal diet. EZ stand to commode. ?
[2024-08-17 01:00] VITALS: PULSE 74
[2024-08-17 01:57] VITALS: BP 169/94; PULSE 69; RESP 20; TEMP 36.4; O2SAT 96
[2024-08-17] MEDS: ACETAMINOPHEN 325 MG TABLET 650 MG PO (02:34)
[2024-08-17] MEDS: LEVOTHYROXINE 75 MCG TABLET 150 MCG PO (06:02)
--- NOTE | 2024-08-17 06:06 | PC.NURSE ---
Shift note ([id number]): Patient pleasant, alert and oriented. Remained in bed during night. Requested PRN Tylenol for headache. O2 sats dropped to upper 70?s on room air while sleeping. O2 was applied. O2 sats increased to 89-96% on 2 LPM via mask. Pt declined to be repositioned at times. ?
[2024-08-17 07:00] VITALS: BP 131/75; PULSE 74; PULSE 81; RESP 18; TEMP 36.7; O2SAT 94
--- NOTE | 2024-08-17 07:28 | PM.IMPN1 ---
Assessment and Plan Assessment and plan (1) Urinary tract infection: Problem comment: Patient is having dysuria despite having a Elliott catheter. She is voiding around her catheter. Will replace the catheter and initiate antibiotics consistent with her previous history. 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 Status: Acute (4) Hypoxia: Problem comment: O2 saturations in ED 88-89% In setting of acute pulmonary edema, suspected undiagnosed sleep apnea, suspected obesity hypoventilation syndrome Status: Acute (5) Pulmonary edema: Problem comment: Appears to be having a heart failure exacerbation with worsening dyspnea and orthopnea. Acute on chronic with preserved ejection fraction. CXR shows moderate pulmonary edema, no pleural effusion, cardiomegaly noted Continue diuresis, monitoring I's and O's Echocardiogram 08/16/2024 Final Impressions: 1. Technically limited exam. 2. LVEF 60-65%. Moderate asymmetric LVH. 3. Tiny apical akinesis. 4. Mild TR. 5. No LV thrombus [contrast study]. 6. Mild degenerative MS/MAC. MG 3 mmHg, HR 73 bpm. 7. IVC not well seen. 8. Mild GARRET. Status: Acute (6) Obstructive sleep apnea: Problem comment: Patient reports that she has never been told that this is a possible problem though notes indicate otherwise. also notes that this concern has not been raised before. he denies that he hears her snoring though he sleeps in a different room. She is sleepy all the time during the day. I recommend outpatient evaluation for sleep apnea. 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 Patient is basically sitting in a wheelchair all day long and lying on her back in bed all night long. Not getting properly reposition and offloading her sacral ulcer. Recommend outpatient wound clinic consult Outpatient chair assessment Status: Acute (8) Restrictive lung disease: Problem comment: Pulm consult due to obesity 04/2024. Thought to be cough variant asthma with postnasal drip contributing. Recommended to trial inhaler therapy, Flovent twice daily Status: Acute (9) Body mass index [BMI] 45.0-49.9, adult: Problem comment: BMI 43.7 Status: Acute (10) Cauda equina syndrome: Problem comment: Patient reports this is secondary to lumbar spine surgery complication. She is quite weak in her lower extremities. 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 Exam Const: Vital Signs, click to edit/add: Vital Signs - 24 hr 08/16/24 11:00 08/16/24 15:00 08/16/24 15:00 Temperature 97.9 F 98.1 F Pulse Rate 68 Pulse Rate [Pulse Oximeter] 69 71 Respiratory Rate 18 18 Blood Pressure [Le ft Arm] 139/77 134/72 Pulse Oximetry 93 92 Oxygen Delivery Me thod Room Air Room Air Oxygen Flow Rate 08/16/24 15:00 08/16/24 15:00 08/16/24 19:00 Temperature 97.9 F Pulse Rate Pulse Rate [Pulse Oximeter] 71 80 Respiratory Rate 18 18 24 Blood Pressure [Le ft Arm] 184/87 H Pulse Oximetry 92 94 Oxygen Delivery Me thod Room Air Nasal Cannula Oxygen Flow Rate 3 08/16/24 22:19 08/16/24 23:00 08/17/24 01:00 Temperature 97.7 F Pulse Rate 74 Pulse Rate [Pulse Oximeter] 68 Respiratory Rate 24 Blood Pressure [Le ft Arm] 150/79 H Pulse Oximetry 94 94 Oxygen Delivery Me thod Nasal Cannula Nasal Cannula Oxygen Flow Rate 2 2 08/17/24 01:57 Temperature 97.6 F Pulse Rate Pulse Rate [Pulse Oximeter] 69 Respiratory Rate 20 Blood Pressure [Le ft Arm] 169/94 H Pulse Oximetry 96 Oxygen Delivery Me thod Nasal Cannula Oxygen Flow Rate 2 Labs Labs: Laboratory Results - last 24 hr 08/16/24 06:27 INR 3.15 H Sodium 143 Potassium 3.7 Chloride 104 Carbon Dioxide 33 H Anion Gap 6 L BUN 25 Creatinine 0.8 Estimated Creat Clear 41.45 Estimated GFR 73 Glucose 94 Calcium 8.6
[2024-08-17 07:32] LABS: Chloride* 104 mmol/L (96-114)
[2024-08-17 07:33] LABS: Potassium* 4.2 mmol/L (3.6-5.1); Sodium* 143 mmol/L (135-149)
[2024-08-17 07:35] LABS: Blood Urea Nitrogen* 27 mg/dL (7-30); Creatinine* 0.8 mg/dL (0.5-1.5); Est. Creatinine Clearance* 41.45; Estimated Glomerular Filt Rate 73 ml/min
[2024-08-17 07:36] LABS: Anion Gap 6 mEq/L (7-15); Carbon Dioxide* 33 mmol/L (20-32); Glucose* 101 mg/dL (60-115)
[2024-08-17 08:15] LABS: INR 2.78 (0.91-1.10); Prothrombin Time 30.6 Seconds
[2024-08-17] MEDS: FUROSEMIDE 40 MG TABLET PO (08:16)
[2024-08-17] MEDS: GABAPENTIN 600 MG TABLET 1200 MG PO ×2 (09:14→13:55)
[2024-08-17] MEDS: ACETAMINOPHEN 500 MG TABLET 1000 MG PO (09:14)
[2024-08-17] MEDS: METOPROLOL SUCCINATE (XL) 100 MG TAB PO (09:14)
[2024-08-17] MEDS: SPIRONOLACTONE 25 MG TABLET PO (09:15)
[2024-08-17] MEDS: SODIUM CHLORIDE 0.9 % (FLUSH) 10 ML SYRINGE 5 ML IVF (09:15)
[2024-08-17] MEDS: buPROPion XL 150 MG TABLET PO (09:15)
[2024-08-17] MEDS: CEFEPIME HCL 1 GM in 0.9 % SODIUM CHLORIDE Mini-bag 100 ML IVPB (09:37)
[2024-08-17 11:00] VITALS: BP 146/77; PULSE 80; RESP 18; TEMP 36.7; O2SAT 91
[2024-08-17] MEDS: LIDOCAINE 5% PATCH 1 PATCH TRANSDERMA (11:05)
--- NOTE | 2024-08-17 12:39 | PM.DS1 ---
DS: Providers Provider Date Seen: 08/17/24 Date of admission: 08/15/24 17:54 Primary care physician: Lona Bernard Admitting Clinician: Monty Cole MD Consults: 08/16/24 09:12 Consult to Wound Care [CONS] Routine Comment: laceration to labia (chronic alford) Consulting Provider: [facility] Attending Physician on discharge: RAFA Baker, PAAvrilC [employer] Hospitalist Date of Discharge: 08/17/24 DS: Diagnosis Discharge Diagnosis (1) Urinary tract infection: Status: Acute Problem details: Patient is having dysuria despite having a Alford catheter. She is voiding around her catheter. Will replace the catheter and initiate antibiotics consistent with her previous history. Continue cefepime, pending urine cultures, currently growing Gram-negative rods Prior to discharge, urine culture noted to be growing Providencia rettgeri, sensitive to 3rd generation cephalosporins. Has been on cefepime. Continue 5 day course of cefdinir on discharge. Recommend outpatient follow-up with Urology for concern of chronic, recurrent bacteriuria, colonization. Repeat urinalysis/test of cure. 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 Outpatient follow-up for management options. (4) Hypoxia: Status: Acute Problem details: O2 saturations in ED 88-89% In setting of acute pulmonary edema, suspected undiagnosed sleep apnea, suspected obesity hypoventilation syndrome Placed on O2 for comfort, weaned to room air with oxygen saturations low to mid 90s. Recommend outpatient sleep study and follow-up with pulmonology (5) Pulmonary edema: Status: Acute Problem details: Appears to be having a heart failure exacerbation with worsening dyspnea and orthopnea. Acute on chronic with preserved ejection fraction. CXR shows moderate pulmonary edema, no pleural effusion, cardiomegaly noted Continue diuresis, monitoring I's and O's Echocardiogram 08/16/2024 Final Impressions: 1. Technically limited exam. 2. LVEF 60-65%. Moderate asymmetric LVH. 3. Tiny apical akinesis. 4. Mild TR. 5. No LV thrombus [contrast study]. 6. Mild degenerative MS/MAC. MG 3 mmHg, HR 73 bpm. 7. IVC not well seen. 8. Mild GARRET. Patient will continue home furosemide 40 mg b.i.d.. Additionally, Spironolactone has been prescribed. Recommend outpatient follow-up with Cardiology (6) Obstructive sleep apnea: Status: Acute Problem details: Patient reports that she has never been told that this is a possible problem though notes indicate otherwise. also notes that this concern has not been raised before. he denies that he hears her snoring though he sleeps in a different room. She is sleepy all the time during the day. I recommend outpatient evaluation for sleep apnea. Highly likely that she has obstructive sleep apnea based on clinical evaluation Recommend outpatient sleep study (7) Decubital ulcer: Status: Acute Problem details: Sacral decubitus ulcer which is longstanding and fluctuating. Patient is basically sitting in a wheelchair all day long and lying on her back in bed all night long. Not getting properly reposition and offloading her sacral ulcer. Recommend outpatient wound clinic consult Outpatient chair assessment for offloading, decreased pressure risks (8) Restrictive lung disease: Status: Acute Problem details: Pulm consult due to obesity 04/2024. Thought to be cough variant asthma with postnasal drip contributing. Recommended to trial inhaler therapy, Flovent twice daily Recommend outpatient follow-up with pulmonology for ongoing management (9) Body mass index [BMI] 45.0-49.9, adult: Status: Acute Problem details: BMI 43.7 Risk for obesity hypoventilation syndrome (10) Cauda equina syndrome: Status: Acute Problem details: Patient reports this is secondary to lumbar spine surgery complication. She is quite weak in her lower extremities. PCP to manage. 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 Continue warfarin. DS: Summary Hospital Course Hospital Course: Course of care and details as noted above. Mild hypoxia upon presentation to ED. Improved. Suspect underlying undiagnosed sleep apnea, obesity hypoventilation syndrome. Spironolactone added to home furosemide. Follow-up with PCP sleep study, pulmonology. Acute UTI versus chronic recurrent bacteriuria. Complete antibiotic course. Repeat UA. Outpatient follow-up with Urology for further evaluation and management options. Remainder of chronic medical comorbidities were monitored and managed with home medications. Status at Discharge Functional status at discharge: bed bound Overall status at discharge: patient is progressing back to baseline Time Spent with Patient Time attestation: Total time spent providing and/or coordinating discharge services: Time spent: Greater than 30 minutes Exam Narrative: Exam Narrative: PHYSICAL EXAM General: Pleasant, conversant, NAD Cardiovascular: RRR Pulmonary: No dyspnea on room air Neurological: Alert, answering questions appropriately Skin: Warm, dry. Const: Vital Signs, click to edit/add: Vital Signs - 24 hr 08/16/24 15:00 08/16/24 15:00 08/16/24 15:00 Temperature 98.1 F Pulse Rate 68 Pulse Rate [Pulse Oximeter] 71 Respiratory Rate 18 18 Blood Pressure [Le ft Arm] 134/72 Pulse Oximetry 92 92 Oxygen Delivery Me thod Room Air Room Air Oxygen Flow Rate 08/16/24 15:00 08/16/24 19:00 08/16/24 22:19 Temperature 97.9 F 97.7 F Pulse Rate Pulse Rate [Pulse Oximeter] 71 80 68 Respiratory Rate 18 24 24 Blood Pressure [Le ft Arm] 184/87 H 150/79 H Pulse Oximetry 94 94 Oxygen Delivery Me thod Nasal Cannula Nasal Cannula Oxygen Flow Rate 3 2 08/16/24 23:00 08/17/24 01:00 08/17/24 01:57 Temperature 97.6 F Pulse Rate 74 Pulse Rate [Pulse Oximeter] 69 Respiratory Rate 20 Blood Pressure [Le ft Arm] 169/94 H Pulse Oximetry 94 96 Oxygen Delivery Me thod Nasal Cannula Nasal Cannula Oxygen Flow Rate 2 2 08/17/24 07:00 08/17/24 07:00 08/17/24 07:00 Temperature 98.1 F Pulse Rate 81 Pulse Rate [Pulse Oximeter] 74 Respiratory Rate 18 18 Blood Pressure [Le ft Arm] 131/75 Pulse Oximetry 94 94 Oxygen Delivery Me thod Room Air Room Air Oxygen Flow Rate 08/17/24 07:00 08/17/24 11:00 Temperature 98.0 F Pulse Rate Pulse Rate [Pulse Oximeter] 74 80 Respiratory Rate 18 18 Blood Pressure [Le ft Arm] 146/77 H Pulse Oximetry 91 Oxygen Delivery Me thod Room Air Oxygen Flow Rate DS: Data Data Completed and Pending Labs on day of discharge: Labs from last 24 hours 08/17/24 06:14 INR 2.78 H Sodium 143 Potassium 4.2 Chloride 104 Carbon Dioxide 33 H Anion Gap 6 L BUN 27 Creatinine 0.8 Estimated Creat Clear 41.45 Estimated GFR 73 Glucose 101 Calcium 9.0 Preliminary micro results at discharge 08/15/24 11:05 Urine Culture - Preliminary Urine Catheterized Batool tai 08/15/24 10:34 Blood Culture - Preliminary Blood NO GROWTH AFTER 48 HOURS 08/15/24 10:27 Blood Culture - Preliminary Blood NO GROWTH AFTER 48 HOURS Imaging Chest x-ray: Attestation: I have reviewed the pertinent imaging results. Radiologist's impression: Elevated anterior right diaphragm. Lung volumes are good. No focal consolidation. Moderate pulmonary edema. No pleural effusion. No pneumothorax. No pneumomediastinum. Cardiomegaly. Atherosclerosis. Bones: Bilateral shoulder arthroplasties. Lower cervical ACDF. IMPRESSION: Moderate pulmonary edema. No pleural effusion. Cardiomegaly. Discharge Plan Discharge Disposition: Home, Self-Care Date of Admission: 08/15/24 17:54 Attending Provider on Discharge: Zeinab Vo Primary Care Provider: Lona Bernard Condition: Improved Anticipated Discharge Date/Time: 08/17/24 12:26 Discharge Medications: New spironolactone 25 mg Tablet 25 mg PO DAILY Qty: 30 0RF cefdinir 300 mg capsule 300 mg PO BID 5 Days Qty: 10 0RF Continued acetaminophen 500 mg capsule 1,000 mg PO QDAY cholecalciferol (vitamin D3) 125 mcg (5,000 unit) tablet 125 mcg PO QDAY gabapentin 600 mg tablet 1,200 mg PO TID Qty: 540 3RF furosemide 40 mg tablet 40 mg PO BID Qty: 180 3RF bupropion HCl 150 mg tablet extended release 24 hr 150 mg PO QAM Qty: 90 3RF albuterol sulfate [Ventolin HFA] 90 mcg/actuation HFA aerosol inhaler 2 puff inhalation Q4-6H PRN (Reason: shortness of breath or wheezing) Qty: 8.5 11RF metoprolol succinate 100 mg tablet extended release 24 hr 100 mg PO QDAY Qty: 90 1RF simvastatin 40 mg tablet 40 mg PO QPM Qty: 90 3RF warfarin 7.5 mg tablet 3.75 - 7.5 mg PO DAILY Protocol: Dose Management Condition: Monday Dose/Route: 7.5 mg Instruction: 1 x 7.5 mg tablet Condition: Monday Dose/Route: 3.75 mg Instruction: 0.5 x 7.5 mg tablets Condition: Monday Dose/Route: 7.5 mg Instruction: 1 x 7.5 mg tablet Condition: Monday Dose/Route: 7.5 mg Instruction: 1 x 7.5 mg tablet Condition: Dose/Route: 3.75 mg Instruction: 0.5 x 7.5 mg tablets Condition: Monday Dose/Route: 7.5 mg Instruction: 1 x 7.5 mg tablet Condition: Monday Dose/Route: 7.5 mg Instruction: 1 x 7.5 mg tablet Protocol Text: Adjustment Start Date: Monday08/13/24 INR Value: 2.2 INR Date: 07/30/24 Recheck Date: 08/20/24 Rx Instructions: 7.5MG DAILY, EXCEPT 3.75MG levothyroxine 150 mcg tablet 150 mcg PO DAILY Qty: 90 3RF Discharge Orders: Discharge Order (Routine); Ordered 08/17/24 Ordered By: Zeinab Vo Patient Education: Spironolactone (By mouth), Cefdinir (By mouth), Urinary Tract Infection in Older Adults (DC) Additional Instructions: Finish 5 day course of cefdinir for UTI. Recommend outpatient follow-up with Urology for further evaluation and management options; concern for colonization, recurrent chronic bacteriuria. Spironolactone has been added to your medication regimen. Take this in addition to furosemide. Recommend outpatient follow-up with Cardiology for evaluation and further recommendations. Recommend outpatient wound care clinic consult for chronic wounds. Recommend outpatient sleep study for concern of sleep apnea, obesity hypoventilation syndrome. Follow-up with pulmonology for re-evaluation, ongoing recommendations. INR on day of discharge is 2.78. Continue warfarin. Activity Level: No Restrictions Discharge Diet: Regular Follow Up Appointments: Andreina Chakraborty APRN [Nurse Practitioner] - (Wound care clinic appointment 5-10 days if able. Wound car clinic will call you next week with appointment date and time.) Lona Bernard MD [Primary Care Provider] - 08/27/24 9:45 am ([facility], [place] for hospital follow-up.) Forms: [employer] Info Instructions
--- NOTE | 2024-08-17 15:33 | PC.NURSE ---
Discharge: patient pleasant and cooperative, A&O. VSS, afebrile. SpO2 maintained above 90% on RA. IV removed with tip intact. Discharge instructions provided, all questions answered. Discharged to home via non-emergent EMS.
== END 2024-08-17 14:43 | disposition home or self-care (01) | DRG 698 ==
LOC: ED 15:04 → MEDSURG 15:21
PROVIDERS: Admitting Provider Family Medicine; Emergency Provider Student in an Organized Health Care Education/Training Program; PCP Emergency Medicine; Visit Provider Family Medicine
DX: T83.511A Infection and inflammatory reaction due to indwelling urethral catheter, initial encounter (principal); I50.33 Acute on chronic diastolic (congestive) heart failure; Z68.41 Body mass index [BMI] 40.0-44.9, adult; G83.4 Cauda equina syndrome; E66.2 Morbid (severe) obesity with alveolar hypoventilation; L89.152 Pressure ulcer of sacral region, stage 2; N39.0 Urinary tract infection, site not specified; R82.71 Bacteriuria; B96.89 Other specified bacterial agents as the cause of diseases classified elsewhere; I11.0 Hypertensive heart disease with heart failure; D50.9 Iron deficiency anemia, unspecified; I48.91 Unspecified atrial fibrillation; Z79.01 Long term (current) use of anticoagulants; Z91.148 Patient's other noncompliance with medication regimen for other reason; E03.9 Hypothyroidism, unspecified; J45.991 Cough variant asthma; F41.9 Anxiety disorder, unspecified; F32.A Depression, unspecified; Z86.718 Personal history of other venous thrombosis and embolism; Z86.711 Personal history of pulmonary embolism
CPT/HCPCS: 36415; 71046; 80048; 80053; 81001; 82803; 83880; 85025; 85610; 87040; 87086; 93005; 93306; 99283; 99285; A9270; J0692; J1938; Q9957

== ENCOUNTER 2024-08-17 14:35 | Outpatient (CLI) | payer MEDICARE, BC, SELFPAY | END 2024-08-17 14:36 | disposition home or self-care (01) | LOC: AMB 08-23 13:42 | PROVIDERS: PCP Emergency Medicine; Visit Provider Internal Medicine | DX: R53.1 Weakness (principal); Z99.3 Dependence on wheelchair | CPT/HCPCS: A0425; A0428 ==

== ENCOUNTER 2024-09-26 15:38 | Outpatient (CLI) | payer MEDICARE, BC, SELFPAY | END 2024-09-26 15:39 | disposition home or self-care (01) | LOC: LKVREF 15:38 | PROVIDERS: PCP Emergency Medicine; Visit Provider Emergency Medicine | DX: N39.0 Urinary tract infection, site not specified (principal); B96.89 Other specified bacterial agents as the cause of diseases classified elsewhere | CPT/HCPCS: 87086 ==

== ENCOUNTER 2024-11-28 14:32 | Outpatient (CLI) | payer MEDICARE, BC, SELFPAY | END 2024-11-28 14:33 | disposition home or self-care (01) | LOC: LKVREF 14:34 | PROVIDERS: PCP Family Medicine; Visit Provider Family Medicine | DX: E03.9 Hypothyroidism, unspecified (principal); I10 Essential (primary) hypertension | CPT/HCPCS: 80053; 84443 ==

== ENCOUNTER 2025-01-06 11:52 | Outpatient (CLI) | payer MEDICARE, BC, SELFPAY | END 2025-01-06 11:53 | disposition home or self-care (01) | LOC: LKVREF 11:54 | PROVIDERS: PCP Family Medicine; Visit Provider Family Medicine | DX: D50.9 Iron deficiency anemia, unspecified (principal); I21.4 Non-ST elevation (NSTEMI) myocardial infarction; I25.10 Atherosclerotic heart disease of native coronary artery without angina pectoris; I48.91 Unspecified atrial fibrillation; I73.9 Peripheral vascular disease, unspecified; Z79.01 Long term (current) use of anticoagulants | CPT/HCPCS: 80053; 84443 ==

== ENCOUNTER 2025-01-20 16:19 | Outpatient (CLI) | payer MEDICARE, BC, SELFPAY | END 2025-01-20 16:20 | disposition home or self-care (01) | LOC: NFLDREF 16:22 | PROVIDERS: PCP Family Medicine; Visit Provider Family Medicine | DX: N39.0 Urinary tract infection, site not specified (principal) | CPT/HCPCS: 87086 ==